=== PATIENT | female | born 1960 | race African-American/Black ===

== ENCOUNTER → 2020-07-25 09:26 | Outpatient (BNVA) | payer BC, SELFPAY | PROVIDERS: PCP Internal Medicine; Visit Provider Internal Medicine Gastroenterology | DX: Z76.89 Persons encountering health services in other specified circumstances (principal) ==

== ENCOUNTER 2020-09-03 08:41 | Outpatient (REF) | payer OTHER, SELFPAY ==
--- NOTE | ~2020-09-03 | MM_ITS ---
EXAMINATION: MM SCREENING DIGITAL BREAST TOMOSYNTHESIS, BILATERAL CLINICAL INFORMATION: Screening. Asymptomatic. The lifetime risk of breast cancer based on the Tyrer-Cuzick Model is 11%. COMPARISON: Mammography: 08/29/2019, 08/25/2018, 08/23/2017 TECHNIQUE: Digital breast tomosynthesis is performed in both the craniocaudal and mediolateral oblique views along with computer-aided detection (CAD). Synthesized 2D images are generated from the tomosynthesis. Additional views are provided: Right CC x2, right MLO, left CC, left MLO. FINDINGS: There are scattered areas of fibroglandular density (ACR BI-RADS breast composition Category b). There are no significant masses, abnormal calcifications, or other abnormalities. There are scattered shifting fibroglandular parenchymal densities overall similar to prior studies. No developing density. No significant changes. MM/MM tomosynthesis screening BI IMPRESSION: No significant changes from prior studies. ASSESSMENT: BI-RADS 1: Negative RECOMMENDATION: Routine annual mammography screening. This patient's information was entered into a reminder system with a target due date for their next mammogram.
== END 2020-09-03 08:42 | disposition home or self-care (01) ==
LOC: HO.MAMMO 08:41
PROVIDERS: PCP Internal Medicine; Visit Provider Internal Medicine
DX: Z12.31 Encounter for screening mammogram for malignant neoplasm of breast (principal)
CPT/HCPCS: 77063; 77067

== ENCOUNTER 2020-11-08 09:26 | Outpatient (REF) | payer OTHER, SELFPAY ==
--- NOTE | ~2020-11-08 | XR_ITS ---
EXAMINATION: XR CHEST CLINICAL INFORMATION: Morbid obesity COMPARISON: 08/24/2019 TECHNIQUE: 2 views of the chest were obtained. FINDINGS: Normal symmetric lung volumes. No parenchymal consolidation. No pleural effusion. No pneumothorax. Cardiomediastinal silhouette and pulmonary vascularity are within normal limits. No acute osseous abnormalities. XR/XR chest 2V IMPRESSION: Unremarkable examination.
--- NOTE | 2020-11-08 11:05 | ECG_ITS ---
Test Reason : E66.01 Blood Pressure : / mmHG Vent. Rate : 064 BPM Atrial Rate : 064 BPM P-R Int : 150 ms QRS Dur : 090 ms QT Int : 436 ms P-R-T Axes : 079 -17 034 degrees QTc Int : 449 ms Normal sinus rhythm Possible Left atrial enlargement Nonspecific ST abnormality Abnormal ECG When compared with ECG of 24-AUG-2019 11:26, No significant change was found Referred By: Deb Pantoja Electronically Signed By:Ishan Osullivan
[2020-11-08 11:36] LABS: MANUAL DIFF FLAG NO
[2020-11-08 11:47] LABS: Basophils Percent Auto 0.5 % (0-2); Eosinophils Absolute Auto 0.1 X10*3/uL (0.0-0.4); Eosinophils Percent Auto 1.8 % (0-4); Hematocrit 41.4 % (37-47); Hemoglobin 13.6 g/dl (12.0-16.0); Imm Gran Abs Auto 0.01 X10*3/uL (0.00-0.03); Imm Gran Pct Auto 0.3 % (0.0-0.4); Mean Corpuscular HGB Conc 32.9 g/dl (31.0-35.0); Mean Corpuscular Hemoglobin 28.8 pg (27.0-33.0); Mean Corpuscular Volume 87.7 fL (80-98); Mean Platelet Volume 10.7 fL (9.4-12.3); Monocytes Absolute Auto 0.3 X10*3/uL (0.1-1.2); Monocytes Percent Auto 8.1 % (2-11); Neutrophils Absolute Auto 1.5 X10*3/uL (2.0-8.3); Neutrophils Percent Auto 38.3 % (45-73); Platelet Count 190 X10*3/uL (160-400); Red Blood Count 4.72 X10*6/uL (4.20-5.50); Red Cell Distribution Width 13.9 % (11.0-16.0); White Blood Count 3.8 X10*3/uL (4.8-10.8)
[2020-11-08 12:09] LABS: Alanine Aminotransferase 24 U/L (0-31); Albumin Level 4.2 g/dL (3.5-5.0); Alkaline Phosphatase 104 U/L (39-117); Anion Gap 14 (12-20); Aspartate Amino Transferase 21 U/L (5-31); Bilirubin Total 0.5 mg/dL (0.0-1.0); Blood Urea Nitrogen 13 mg/dL (9-16); C Reactive Protein 0.31 mg/dL (< or = 0.50); Calcium 9.4 mg/dL (8.4-10.2); Carbon Dioxide 25 mmol/L (22-29); Chloride 104 mmol/L (96-108); Cholesterol 187 mg/dL; Estimated Glomerular Filt Rate > 60; Glucose Fasting 87 mg/dL (60-99); HDL Cholesterol 49 mg/dL; Iron 56 mcg/dL (30-160); LDL Cholesterol Calculated 122 mg/dl; Percent Iron Saturation 17 % (15-50); Potassium 4.3 mmol/L (3.3-5.1); Sodium 139 mmol/L (135-145); Total Iron Binding Capacity 323 mcg/dL (228-428); Total Protein 7.1 g/dL (6.5-8.0); Triglycerides 84 mg/dL; Unsaturated Iron Binding 267 ug/dL
[2020-11-08 12:12] LABS: Estimated Average Glucose 117 mg/dL; Hemoglobin A1c % 5.7 %
[2020-11-08 12:33] LABS: Ferritin 54 ng/mL (10-250); TSH reflex Free T4 2.01 uIU/mL (0.32-4.0); Vitamin D 25-OH Total 26.2 ng/mL (>30)
[2020-11-08 12:40] LABS: Folate 10.6 ng/mL (> or = 4.0); Vitamin B12 1028 pg/mL (200-900)
[2020-11-09 06:01] LABS: Insulin Level Total 7.6 uIU/mL
[2020-11-11 16:17] LABS: Calcium (PTHI) 9.5 mg/dL (8.6-10.4); PTHI 53 pg/mL (14-64)
[2020-11-13 09:41] LABS: Vitamin A 41 mcg/dL (38-98)
[2020-11-13 10:26] LABS: Vitamin B1 7 nmol/L (8-30)
[2020-11-15 16:12] LABS: Zinc 77 mcg/dL (60-130)
== END 2020-11-08 09:27 | disposition home or self-care (01) ==
LOC: HO.LAB 09:26
PROVIDERS: PCP Internal Medicine; Visit Provider Physician Assistant
DX: E66.01 Morbid (severe) obesity due to excess calories (principal); R06.02 Shortness of breath; R94.31 Abnormal electrocardiogram [ECG] [EKG]; F17.210 Nicotine dependence, cigarettes, uncomplicated; Z68.41 Body mass index [BMI] 40.0-44.9, adult; Z91.030 Bee allergy status; Z79.899 Other long term (current) drug therapy
CPT/HCPCS: 36415; 71046; 80053; 80061; 82306; 82607; 82728; 82746; 83036; 83525; 83540; 83970; 84425; 84443; 84590; 84630; 85025; 86140; 93005

== ENCOUNTER → 2020-11-19 08:06 | Outpatient (BNVA) | payer OTHER, SELFPAY | PROVIDERS: PCP Internal Medicine; Visit Provider Dietitian, Registered | DX: E66.01 Morbid (severe) obesity due to excess calories (principal); Z68.42 Body mass index [BMI] 45.0-49.9, adult | CPT/HCPCS: 97802 ==

== ENCOUNTER → 2020-12-05 08:23 | Outpatient (BNVA) | payer OTHER, SELFPAY | PROVIDERS: PCP Internal Medicine; Referring Provider Internal Medicine; Visit Provider Internal Medicine | DX: Z01.810 Encounter for preprocedural cardiovascular examination (principal); R94.31 Abnormal electrocardiogram [ECG] [EKG]; E66.01 Morbid (severe) obesity due to excess calories; I10 Essential (primary) hypertension | CPT/HCPCS: 99202 ==

== ENCOUNTER 2020-12-09 08:07 | Outpatient (REF) | payer OTHER, SELFPAY ==
[2020-12-10 13:38] LABS: H Pylori Breath Test NOT DETECTED (NOT DETECTED)
== END 2020-12-09 08:08 | disposition home or self-care (01) ==
LOC: HO.LNP 08:07
PROVIDERS: PCP Internal Medicine; Visit Provider Physician Assistant
DX: E66.01 Morbid (severe) obesity due to excess calories (principal); Z68.42 Body mass index [BMI] 45.0-49.9, adult; Z71.3 Dietary counseling and surveillance; Z11.0 Encounter for screening for intestinal infectious diseases
CPT/HCPCS: 83013; 97803; 99211

== ENCOUNTER → 2020-12-10 14:12 | Outpatient (BNVA) | payer OTHER, SELFPAY | PROVIDERS: PCP Internal Medicine; Visit Provider Surgery | DX: E66.01 Morbid (severe) obesity due to excess calories (principal); Z68.42 Body mass index [BMI] 45.0-49.9, adult; Z98.84 Bariatric surgery status | CPT/HCPCS: 99212 ==

== ENCOUNTER 2020-12-18 07:32 | Day surgery (SDC) | payer OTHER, SELFPAY ==
--- NOTE | 2020-12-17 09:12 | HO.ANESPROP2 ---
Documented by User: Lanette Rosy 12/17/20 09:15 HPI - Anesthesia Eval Consult details Narrative: 60yo F for Upper Endoscopy Cardiac cleared at low risk without further testing (reviewed abnormal EKG) [facility] Active Problems Active Problems: All Active Problems (Updated 12/05/20 @ 08:58 by Francisco Javier Barkley MD) Morbid obesity (Acute) BMI 45.0-49.9, adult (Acute) History of adjustable gastric banding (Acute) Essential hypertension (Acute) Preoperative cardiovascular examination (Acute) Adjustment disorder, unspecified (Acute) Vitamin B1 deficiency (Acute) Abnormal EKG (Acute) Vitamin D deficiency (Acute) Morbid obesity with BMI of 40.0-44.9, adult (Acute) PPD positive (Acute) Insomnia (Acute) GERD with esophagitis (Acute) Rheumatoid arthritis (Acute) Hypertension (Acute) Past Medical History Medical History Abnormal EKG BMI 45.0-49.9, adult Essential hypertension GERD with esophagitis Helicobacter pylori gastritis Insomnia Morbid obesity with BMI of 40.0-44.9, adult PPD positive Rheumatoid arthritis Vitamin B1 deficiency Vitamin D deficiency Family History Family History Father Family history of high blood pressure Mother No problems noted. Brother No problems noted. Sister No problems noted. Sister No problems noted. Sister No problems noted. Sister No problems noted. Son No problems noted. Surgical History Surgical History History of adjustable gastric banding History of (~1996) History of colonoscopy (~05/2019) Hx of endoscopy (~07/2019) Social History Social History (Updated 12/05/20 @ 08:31 by LOGAN Anne) Alcohol intake: current Alcohol intake frequency: a few times a month Cigarettes Per Day: 4 Use of substances other than those prescribed or required for medical reasons: No Are you DNR?: No Advance Directives: No Advance Directives Information Provided: No Meds Allergies Allergy/AdvReac Type Severity Reaction Status Date / Time Bee Allergy Severe Abdominal Uncoded 12/18/20 08:40 Pain Home Medications Medication Instructions Recorded Confirmed Last Taken Type epinephrine 0.3 mg/0.3 mL 0.3 mg IM Q15M PRN 07/25/20 12/10/20 Unknown History injection, auto-injector lisinopril 10 mg tablet 10 mg PO DAILY 07/25/20 12/10/20 Unknown History acetaminophen 650 mg 650 mg PO Q8H PRN 11/08/20 12/10/20 Unknown History tablet,extended release zinc sulfate 50 mg zinc (220 mg) 50 mg PO DAILY 11/08/20 12/10/20 Unknown History capsule biotin 10,000 mcg capsule mcg PO 12/10/20 12/10/20 Unknown History omeprazole 20 mg capsule,delayed 20 mg PO DAILY cap 12/10/20 12/10/20 Unknown History release turmeric 400 mg capsule mg PO .qod cap 12/10/20 12/10/20 Unknown History Exam Exam Date and Time: December 17, 202012 Narrative Narrative: XR chest 2V 10/2020 IMPRESSION: Unremarkable examination. EKG 10/2020 Vent. Rate : 064 BPM Atrial Rate : 064 BPM P-R Int : 150 ms QRS Dur : 090 ms QT Int : 436 ms P-R-T Axes : 079 -17 034 degrees QTc Int : 449 ms Normal sinus rhythm Possible Left atrial enlargement Nonspecific ST abnormality Abnormal ECG When compared with ECG of 24-AUG-2019 11:26, No significant change was found Assessment and Plan Assessment Anesthesia Assessment: Chart Reviewed Documented by User: Ryan Brown 12/18/20 08:44 [facility] Past Medical History Medical History Abnormal EKG BMI 45.0-49.9, adult Essential hypertension GERD with esophagitis Helicobacter pylori gastritis Insomnia Morbid obesity with BMI of 40.0-44.9, adult PPD positive Rheumatoid arthritis Vitamin B1 deficiency Vitamin D deficiency Family History Family History Father Family history of high blood pressure Mother No problems noted. Brother No problems noted. Sister No problems noted. Sister No problems noted. Sister No problems noted. Sister No problems noted. Son No problems noted. Surgical History Surgical History History of adjustable gastric banding History of (~1996) History of colonoscopy (~05/2019) Hx of endoscopy (~07/2019) Social History Social History (Updated 12/05/20 @ 08:31 by LOGAN Anne) Alcohol intake: current Alcohol intake frequency: a few times a month Cigarettes Per Day: 4 Use of substances other than those prescribed or required for medical reasons: No Are you DNR?: No Advance Directives: No Advance Directives Information Provided: No Meds Allergies Allergy/AdvReac Type Severity Reaction Status Date / Time Bee Allergy Severe Abdominal Uncoded 12/18/20 08:40 Pain Home Medications Medication Instructions Recorded Confirmed Last Taken Type epinephrine 0.3 mg/0.3 mL 0.3 mg IM Q15M PRN 07/25/20 12/10/20 Unknown History injection, auto-injector lisinopril 10 mg tablet 10 mg PO DAILY 07/25/20 12/10/20 Unknown History acetaminophen 650 mg 650 mg PO Q8H PRN 11/08/20 12/10/20 Unknown History tablet,extended release zinc sulfate 50 mg zinc (220 mg) 50 mg PO DAILY 11/08/20 12/10/20 Unknown History capsule biotin 10,000 mcg capsule mcg PO 12/10/20 12/10/20 Unknown History omeprazole 20 mg capsule,delayed 20 mg PO DAILY cap 12/10/20 12/10/20 Unknown History release turmeric 400 mg capsule mg PO .qod cap 12/10/20 12/10/20 Unknown History Exam Airway Mallampati Class: II TM Dist: >3cm Neck ROM: Full
--- NOTE | 2020-12-17 11:13 | MHC.SHP ---
Pre-Procedural Eval Section B Chief Complaint: bariatric surgery status Allergies: Allergies Allergy/AdvReac Type Severity Reaction Status Date / Time Bee Allergy Severe Abdominal Uncoded 12/10/20 14:50 Pain Plan I have reviewed the history and physical and performed a pertinent physical examination on my patient. No changes have occurred unless specified.
[2020-12-18 07:55] VITALS: BP 138/56; PULSE 55; RESP 16; TEMP 36.5; O2SAT 99; BMI 45.9
[2020-12-18] MEDS: Lactated Ringers 1,000 ML 100 ML IVCONT (08:21)
[2020-12-18 08:35] LABS: COVID-19 Test Negative (Negative)
[2020-12-18 09:25] VITALS: BP 94/41; PULSE 61; RESP 16; TEMP 36.1; O2SAT 96
--- NOTE | 2020-12-18 09:32 | P.BOP_ITS ---
Brief Operative Note Date of Service: 12/18/20 Pre-op diagnosis: Vomiting and severe GERD with a history of gastric banding Post-op diagnosis: other (Large slip of the gastric band and antral gastritis) Procedure: Esophagogastroduodenoscopy, biopsy of antrum x2 Implants: None Surgeon: Clare Mehta MD Anesthesia: MAC Was an Digital Research Analyst used for this Procedure?: No Estimated blood loss (mL): 0 Pathology: other (Antrum x2) Condition: stable Disposition: PACU
[2020-12-18 09:40] VITALS: BP 106/58; PULSE 62; RESP 61; TEMP 36.1; O2SAT 100
--- NOTE | 2020-12-18 13:30 | OP_ITS ---
SURGEON: Clare Mehta MD PREOPERATIVE DIAGNOSIS: POSTOPERATIVE DIAGNOSIS: PROCEDURE PERFORMED: Esophagogastroduodenoscopy with antral biopsy x2. ESTIMATED BLOOD LOSS: COMPLICATIONS: None. ANESTHESIA: ASSISTANTS: SPECIMENS: PRE-PROCEDURE DIAGNOSES: Vomiting, severe gastroesophageal reflux disease, status post gastric banding. POSTPROCEDURE DIAGNOSES: Large gastric band slip and antral gastritis. FINDINGS: A large gastric band slip with some undigested food within the gastric pouch and a significant amount of stomach above the gastric band. DESCRIPTION OF PROCEDURE: The patient was brought to the operating room on the stretcher and placed in the left lateral decubitus position. A safety time-out was performed. A bite block was placed between the teeth. Total intravenous anesthesia was administered using propofol by the nurse jalousie installer. Once the patient was adequately sedated, the gastroscope was placed into the posterior oropharynx, passed down the esophagus, evaluating the esophageal mucosa. The GE junction was located at 43 cm from the incisors. The gastric band was located at 49 cm from the incisors. There was significant amount of stomach above the gastric band and some undigested food within the stomach. The gastroscope was passed through the gastric band into the lower stomach, and there was some erythema and granularity of the antrum, which was biopsied x2. The gastroscope was passed to the pre-pyloric region through the pylorus, down to the third portion of duodenum, all which was normal. All of these portions of the upper endoscopy were documented using photo documentation. The gastroscope was retracted back into the stomach, the stomach was desufflated, and the gastroscope was removed without difficulty. The patient tolerated the procedure well and was sent to the recovery room in stable condition. Clare Mehta MD UM/MODL / [id number]
== END 2020-12-18 10:52 | disposition home or self-care (01) ==
PROVIDERS: PCP Internal Medicine; Visit Provider Surgery
PROC: 0DJ08ZZ Inspection of Upper Intestinal Tract, Via Natural or Artificial Opening Endoscopic (ICD-10-PCS; CPT 43235; principal; 2020-12-18 08:50)
DX: K91.0 Vomiting following gastrointestinal surgery (principal); K95.09 Other complications of gastric band procedure; K21.00 Gastro-esophageal reflux disease with esophagitis, without bleeding; K29.50 Unspecified chronic gastritis without bleeding; Z98.84 Bariatric surgery status; E66.01 Morbid (severe) obesity due to excess calories; Z68.42 Body mass index [BMI] 45.0-49.9, adult; I10 Essential (primary) hypertension; M06.9 Rheumatoid arthritis, unspecified; R76.11 Nonspecific reaction to tuberculin skin test without active tuberculosis; Z20.822 Contact with and (suspected) exposure to COVID-19; Z79.899 Other long term (current) drug therapy; Z87.891 Personal history of nicotine dependence
CPT/HCPCS: 43239; 36415; 87635; 88305; 88342; J2250

== ENCOUNTER → 2020-12-24 08:08 | Outpatient (BNVA) | payer OTHER, SELFPAY | PROVIDERS: PCP Internal Medicine; Visit Provider Dietitian, Registered | DX: E66.01 Morbid (severe) obesity due to excess calories (principal) | CPT/HCPCS: 97803 ==

== ENCOUNTER → 2020-12-30 11:25 | Outpatient (BNVA) | payer OTHER, SELFPAY | PROVIDERS: PCP Internal Medicine; Referring Provider Internal Medicine; Visit Provider Surgery | DX: Z01.818 Encounter for other preprocedural examination (principal); E66.01 Morbid (severe) obesity due to excess calories; Z68.42 Body mass index [BMI] 45.0-49.9, adult | CPT/HCPCS: 99212 ==

== ENCOUNTER → 2021-01-06 08:07 | Outpatient (BNVA) | payer OTHER, SELFPAY | PROVIDERS: PCP Internal Medicine; Visit Provider Dietitian, Registered ==

== ENCOUNTER 2021-01-14 13:20 | Outpatient (REF) | payer OTHER, SELFPAY ==
--- NOTE | ~2021-01-14 | US_ITS ---
EXAMINATION: PELVIC ULTRASOUND CLINICAL INFORMATION: Uterine fibroids COMPARISON: 02/17/2017 TECHNIQUE: Both transabdominal and endovaginal scanning was performed. FINDINGS: An anteverted uterus is present measuring 7.8 x 5.3 x 5.3 cm for a volume of 114 mL. Multiple uterine fibroids are seen with 6 measured the largest 3 are near the fundus measuring 2.4 x 1.9 x 2.9 cm, 2.4 x 2.1 x 2.3 cm and 1.9 x 1.9 x 1.9 cm. The largest fibroid previously measured 3.4 x 2.7 x 3.2 cm. Exact comparisons between the current study and the prior study were difficult because of the sonographers inability to accurately match up the fibroids with the prior study. The right ovary measures 1.9 x 1.4 x 1.5 cm for a volume of 2.1 mL and appears unremarkable. Left ovary measures 2.0 x 1.3 x 1.3 cm for a volume of 1.8 mL and appears unremarkable. US/US pelvic and transvaginal IMPRESSION: At least 6 uterine fibroids seen. They appear to be smaller as the largest fibroid today measures 2.9 cm where as the time of the prior study the largest was 3.4 cm in greatest dimension. However, inability to match the fibroids directly limits evaluation. Examination such as a pelvic MRI would be best to more accurately follow these if necessary.
--- NOTE | ~2021-01-14 | MM_ITS ---
EXAMINATION: BONE DENSITOMETRY CLINICAL INDICATION: Encounter for screening for osteoporosis. COMPARISON: None (current study represents initial baseline exam). TECHNIQUE: Using a Captimo DXA System (software version: 13.1) manufactured by [employer], dual-energy x-ray absorptiometry was performed of the lumbar spine and left hip. The images are of good technical quality. Summary results are attached. FINDINGS: AP SPINE L1-L4: There are multilevel degenerative changes lumbar spine which may cause overestimation of the lumbar bone mineral density. BMD 1.728 g/cm2, Z-score 3.8, T-score 4.6, normal. LEFT FEMUR, NECK: BMD 1.132 g/cm2, Z-score 0.2, T-score 0.7, normal. LEFT FEMUR, TOTAL: BMD 1.181 g/cm2, Z-score 0.4, T-score 1.4, normal. IDENTIFIED RISK FACTORS: History of adult fracture. Height loss. Menopause. Rheumatoid arthritis. HISTORY OF FRACTURE: Other. MEDICATIONS: Calcium or multivitamin. Vitamin D. MM/XR DEXA axial skeleton IMPRESSION: 1. DIAGNOSIS: Normal bone density based on the lowest T-score value of 0.7 in the femoral neck applying World Health Organization criteria. 2. 10-YEAR FRACTURE RISK PREDICTION, FRAX: Major osteoporotic fracture (clinical spine, forearm, hip or shoulder) 4.5%. Hip fracture 0.1%. 3. Treatment Recommendations: NOF guidelines recommend consideration for treatment in postmenopausal women and men age 50 and older presenting with the following: -A hip or vertebral (clinical or morphometric) fracture. -T-score less than or equal to -2.5 at the femoral neck or spine after appropriate evaluation to exclude secondary causes. -Low bone mass at the hip or spine and a 10-year fracture probability by FRAX of greater than or equal to 3% for hip fracture or greater than or equal to 20% for major osteoporotic fracture based on the [place] adapted WHO algorithm. 4. Other Recommendations: All treatment decisions require clinical judgment and consideration of individual patient factors, including patient preferences, comorbidities, previous drug use, risk factors not captured in the FRAX model (e.g. frailty, falls, vitamin D deficiency, increased bone turnover, interval significant decline in bone density) and possible under or overestimation of fracture risk by FRAX. FUTURE SCAN RECOMMENDATION: People with diagnosed cases of osteoporosis or at high risk for fracture should have regular bone mineral density tests. For patients eligible for Medicare, routine testing is allowed once every 2 years. The testing frequency can be increased to one year for patients who have rapidly progressing disease, those who are receiving or discontinuing medical therapy to restore bone mass, or have additional risk factors.
== END 2021-01-14 13:21 | disposition home or self-care (01) ==
LOC: HO.MAMMO 13:20
PROVIDERS: Visit Provider Advanced Practice Midwife
DX: Z13.820 Encounter for screening for osteoporosis (principal); M06.9 Rheumatoid arthritis, unspecified; N95.1 Menopausal and female climacteric states; D25.9 Leiomyoma of uterus, unspecified; Z79.899 Other long term (current) drug therapy; Z87.311 Personal history of (healed) other pathological fracture
CPT/HCPCS: 76830; 76856; 77080

== ENCOUNTER → 2021-01-16 09:51 | Outpatient (BNVA) | payer OTHER, SELFPAY | PROVIDERS: PCP Internal Medicine; Referring Provider Internal Medicine; Visit Provider Internal Medicine Gastroenterology | DX: K21.00 Gastro-esophageal reflux disease with esophagitis, without bleeding (principal); E66.01 Morbid (severe) obesity due to excess calories | CPT/HCPCS: 99212 ==

== ENCOUNTER 2021-01-22 10:34 | Inpatient (IN) | payer OTHER, SELFPAY ==
[2021-01-10 14:54] VITALS: BMI 47.6
[2021-01-21 09:17] LABS: MANUAL DIFF FLAG NO
--- NOTE | 2021-01-21 09:22 | P.CONAN_ITS ---
Documented by User: Lanette Rosy 01/21/21 09:26 HPI - Anesthesia Eval Consult details Narrative: 60yo F for Laparosopic Lap Band Removal with Conversion to Gastric Sleeve Cardiac cleared at low risk PMFSH Active Problems Active Problems: All Active Problems (Updated 01/10/21 @ 14:58 by Leslie Denney) Hypertension (Acute) Morbid obesity (Acute) Adjustment disorder, unspecified (Acute) Preoperative cardiovascular examination (Acute) Preoperative examination (Acute) Shortness of breath (Acute) Smoker (Acute) BMI 45.0-49.9, adult (Acute) History of adjustable gastric banding (Acute) Essential hypertension (Acute) Vitamin B1 deficiency (Acute) Abnormal EKG (Acute) Vitamin D deficiency (Acute) Morbid obesity with BMI of 40.0-44.9, adult (Acute) PPD positive (Acute) Insomnia (Acute) GERD with esophagitis (Acute) Rheumatoid arthritis (Acute) Past Medical History Medical History Abnormal EKG BMI 45.0-49.9, adult COVID-19 vaccine series completed Essential hypertension GERD with esophagitis Helicobacter pylori gastritis Insomnia Morbid obesity with BMI of 40.0-44.9, adult PPD positive Rheumatoid arthritis Vitamin B1 deficiency Vitamin D deficiency Family History Family History Father Family history of high blood pressure Mother No problems noted. Brother No problems noted. Sister No problems noted. Sister No problems noted. Sister No problems noted. Sister No problems noted. Son No problems noted. Surgical History Surgical History History of adjustable gastric banding History of (~1996) History of colonoscopy (~05/2019) History of esophagogastroduodenoscopy (EGD) Hx of endoscopy (~07/2019) Social History Social History (Updated 01/22/21 @ 07:59 by Cielo Quintero) Are you a primary direct support professional caregiver to a significant other at home: No Do you presently have visiting nurse or other home services: No Alcohol intake: current Alcohol intake frequency: a few times a month Patient Tobacco Use Status: Former Tobacco user Quit Date: About 1 week ago Tobacco use type: Cigarette Cigarette Packs Per Day: 0 Cigarettes Per Day: 2 Smoked in Last 30 Days: Yes Meds Allergies Allergy/AdvReac Type Severity Reaction Status Date / Time Bee Allergy Severe Abdominal Uncoded 01/10/21 14:59 Pain Home Medications Medication Instructions Recorded Confirmed Last Taken Type epinephrine 0.3 mg/0.3 mL 0.3 mg IM Q15M PRN 07/25/20 01/16/21 Unknown History injection, auto-injector lisinopril 10 mg tablet 10 mg PO DAILY 07/25/20 01/16/21 Unknown History acetaminophen 650 mg 650 mg PO Q8H PRN 11/08/20 01/16/21 Unknown History tablet,extended release zinc sulfate 50 mg zinc (220 mg) 50 mg PO DAILY 11/08/20 01/16/21 Unknown History capsule biotin 10,000 mcg capsule 10,000 mcg PO DAILY 12/10/20 01/16/21 Unknown History omeprazole 20 mg capsule,delayed 20 mg PO DAILY cap 12/10/20 01/16/21 01/22/21 05:30 History release turmeric 400 mg capsule 400 mg PO .qod cap 12/10/20 01/16/21 Unknown History Exam Exam Date and Time: January 21, 2021 0922 Height,Weight and Vital Signs: Height 5 ft 6 in Weight 133.81 kg Pertinent Lab Results Pertinent Lab Results: Laboratory Tests 11/08/20 01/21/21 10:42 08:35 WBC 3.4 L Hgb 13.2 Hct 41.1 Plt Count 166 Sodium 139 Potassium 4.3 Chloride 104 Carbon Dioxide 25 BUN 13 Creatinine 0.73 Narrative Narrative: EKG 11/2020 per cardiac note: Underlying rhythm is sinus at a rate of 64/Min. There is leftward axis. Possible left atrial enlargement. This is similar to a prior EKG from July of 2019. The left axis deviation could be from her body habitus. Left atrial enlargement could be related to hypertension. Overall, in the absence of symptoms, no specific workup required. Assessment and Plan Assessment Anesthesia Assessment: Chart Reviewed Documented by User: Cielo Quintero 01/22/21 08:05 [facility] Past Medical History Medical History Abnormal EKG BMI 45.0-49.9, adult COVID-19 vaccine series completed Essential hypertension GERD with esophagitis Helicobacter pylori gastritis Insomnia Morbid obesity with BMI of 40.0-44.9, adult PPD positive Rheumatoid arthritis Vitamin B1 deficiency Vitamin D deficiency Family History Family History Father Family history of high blood pressure Mother No problems noted. Brother No problems noted. Sister No problems noted. Sister No problems noted. Sister No problems noted. Sister No problems noted. Son No problems noted. Family history of problems with anesthesia: No Surgical History Surgical History History of adjustable gastric banding History of (~1996) History of colonoscopy (~05/2019) History of esophagogastroduodenoscopy (EGD) Hx of endoscopy (~07/2019) History of Problems with Anesthesia: No Social History Social History (Updated 01/22/21 @ 07:59 by Cielo Quintero) Are you a primary direct support professional caregiver to a significant other at home: No Do you presently have visiting nurse or other home services: No Alcohol intake: current Alcohol intake frequency: a few times a month Patient Tobacco Use Status: Former Tobacco user Quit Date: About 1 week ago Tobacco use type: Cigarette Cigarette Packs Per Day: 0 Cigarettes Per Day: 2 Smoked in Last 30 Days: Yes Meds Allergies Allergy/AdvReac Type Severity Reaction Status Date / Time Bee Allergy Severe Abdominal Uncoded 01/10/21 14:59 Pain Home Medications Medication Instructions Recorded Confirmed Last Taken Type epinephrine 0.3 mg/0.3 mL 0.3 mg IM Q15M PRN 07/25/20 01/16/21 Unknown History injection, auto-injector lisinopril 10 mg tablet 10 mg PO DAILY 07/25/20 01/16/21 Unknown History acetaminophen 650 mg 650 mg PO Q8H PRN 11/08/20 01/16/21 Unknown History tablet,extended release zinc sulfate 50 mg zinc (220 mg) 50 mg PO DAILY 11/08/20 01/16/21 Unknown History capsule biotin 10,000 mcg capsule 10,000 mcg PO DAILY 12/10/20 01/16/21 Unknown History omeprazole 20 mg capsule,delayed 20 mg PO DAILY cap 12/10/20 01/16/21 01/22/21 05:30 History release turmeric 400 mg capsule 400 mg PO .qod cap 12/10/20 01/16/21 Unknown History Exam Height,Weight and Vital Signs: Vital Signs Temp Pulse Resp BP Pulse Ox 01/22/21 06:50 97.4 F 60 16 121/61 97 Pertinent Lab Results Pertinent Lab Results: Lab Results 01/21/21 01/21/21 01/21/21 Range/Units 08:35 08:35 08:35 WBC 3.4 L (4.8-10.8) X10*3/uL RBC 4.62 (4.20-5.50) X10*6/uL Hgb 13.2 (12.0-16.0) g/dl Hct 41.1 (37-47) % MCV 89.0 (80-98) fL MCH 28.6 (27.0-33.0) pg MCHC 32.1 (31.0-35.0) g/dl RDW 14.0 (11.0-16.0) % Plt Count 166 (160-400) X10*3/uL MPV 10.8 (9.4-12.3) fL Immature Gran % (Auto) 0.3 (0.0-0.4) % Neut % (Auto) 39.1 L (45-73) % Lymph % (Auto) 49.3 H (20-40) % [place] % (Auto) 8.9 (2-11) % Eos % (Auto) 1.8 (0-4) % Baso % (Auto) 0.6 (0-2) % Lymph # (Auto) 1.7 (1.2-4.9) X10*3/uL [place] # (Auto) 0.3 (0.1-1.2) X10*3/uL Eos # (Auto) 0.1 (0.0-0.4) X10*3/uL Baso # (Auto) 0.0 (0.0-0.2) X10*3/uL Abs Immat Gran (auto) 0.01 (0.00-0.03) X10*3/uL Absolute Neuts (auto) 1.3 L (2.0-8.3) X10*3/uL Absolute Nucleated RBC 0.000 (0.0-0.012) X10*3/uL Nucleated RBC % (auto) 0.0 (0.0-0.2) /100WBC PT 11.7 (10.8-13.0) SEC INR 1.0 (0.9-1.1) APTT 37.9 (24.1-38.0) SEC Sodium 142 (135-145) mmol/L Potassium 4.6 (3.3-5.1) mmol/L Chloride 108 (96-108) mmol/L Carbon Dioxide 28 (22-29) mmol/L Anion Gap 11 L (12-20) BUN 13 (9-16) mg/dL Creatinine 0.78 (0.5-1.4) mg/dL Estim Creat Clear Calc 110.6 Estimated GFR > 60 Random Glucose 100 (60-115) mg/dL Calcium 9.3 (8.4-10.2) mg/dL Albumin (3.5-5.0) g/dL 25-OH Vitamin D Total 23.0 (>30) ng/mL Urine Color Urine Appearance Urine pH (5.0-8.0) Ur Specific [place] (1.005-1.025) Urine Protein (NEG-TRACE) MG/DL Urine Glucose (UA) (NEG) MG/DL Urine Ketones (NEG) MG/DL Urine Blood (NEG) Urine Nitrite (NEG) Ur Leukocyte Esterase (NEG) Urine RBC (0) /HPF Urine WBC (0-4) /HPF Ur Squamous Epith Cells /LPF Urine Bacteria /LPF Urine Mucus /LPF COVID-19 ([facility]) (Negative) COVID-19 Clin Com Blood Type Antibody Screen 01/21/21 01/21/21 01/21/21 Range/Units 08:35 08:35 08:40 WBC (4.8-10.8) X10*3/uL RBC (4.20-5.50) X10*6/uL Hgb (12.0-16.0) g/dl Hct (37-47) % MCV (80-98) fL MCH (27.0-33.0) pg MCHC (31.0-35.0) g/dl RDW (11.0-16.0) % Plt Count (160-400) X10*3/uL MPV (9.4-12.3) fL Immature Gran % (Auto) (0.0-0.4) % Neut % (Auto) (45-73) % Lymph % (Auto) (20-40) % [place] % (Auto) (2-11) % Eos % (Auto) (0-4) % Baso % (Auto) (0-2) % Lymph # (Auto) (1.2-4.9) X10*3/uL [place] # (Auto) (0.1-1.2) X10*3/uL Eos # (Auto) (0.0-0.4) X10*3/uL Baso # (Auto) (0.0-0.2) X10*3/uL Abs Immat Gran (auto) (0.00-0.03) X10*3/uL Absolute Neuts (auto) (2.0-8.3) X10*3/uL Absolute Nucleated RBC (0.0-0.012) X10*3/uL Nucleated RBC % (auto) (0.0-0.2) /100WBC PT (10.8-13.0) SEC INR (0.9-1.1) APTT (24.1-38.0) SEC Sodium (135-145) mmol/L Potassium (3.3-5.1) mmol/L Chloride (96-108) mmol/L Carbon Dioxide (22-29) mmol/L Anion Gap (12-20) BUN (9-16) mg/dL Creatinine (0.5-1.4) mg/dL Estim Creat Clear Calc Estimated GFR Random Glucose (60-115) mg/dL Calcium (8.4-10.2) mg/dL Albumin 4.0 (3.5-5.0) g/dL 25-OH Vitamin D Total (>30) ng/mL Urine Color YELLOW Urine Appearance CLEAR Urine pH 6.0 (5.0-8.0) Ur Specific [place] 1.020 (1.005-1.025) Urine Protein NEG (NEG-TRACE) MG/DL Urine Glucose (UA) NEG (NEG) MG/DL Urine Ketones NEG (NEG) MG/DL Urine Blood 1+ H (NEG) Urine Nitrite POS H (NEG) Ur Leukocyte Esterase TRACE H (NEG) Urine RBC 0-2 (0) /HPF Urine WBC 10-14 H (0-4) /HPF Ur Squamous Epith Cells 2+ /LPF Urine Bacteria 1+ /LPF Urine Mucus 1+ /LPF COVID-19 ([facility]) (Negative) COVID-19 Clin Com Blood Type O Positive Antibody Screen NEGATIVE 01/22/21 Range/Units 06:45 WBC (4.8-10.8) X10*3/uL RBC (4.20-5.50) X10*6/uL Hgb (12.0-16.0) g/dl Hct (37-47) % MCV (80-98) fL MCH (27.0-33.0) pg MCHC (31.0-35.0) g/dl RDW (11.0-16.0) % Plt Count (160-400) X10*3/uL MPV (9.4-12.3) fL Immature Gran % (Auto) (0.0-0.4) % Neut % (Auto) (45-73) % Lymph % (Auto) (20-40) % [place] % (Auto) (2-11) % Eos % (Auto) (0-4) % Baso % (Auto) (0-2) % Lymph # (Auto) (1.2-4.9) X10*3/uL [place] # (Auto) (0.1-1.2) X10*3/uL Eos # (Auto) (0.0-0.4) X10*3/uL Baso # (Auto) (0.0-0.2) X10*3/uL Abs Immat Gran (auto) (0.00-0.03) X10*3/uL Absolute Neuts (auto) (2.0-8.3) X10*3/uL Absolute Nucleated RBC (0.0-0.012) X10*3/uL Nucleated RBC % (auto) (0.0-0.2) /100WBC PT (10.8-13.0) SEC INR (0.9-1.1) APTT (24.1-38.0) SEC Sodium (135-145) mmol/L Potassium (3.3-5.1) mmol/L Chloride (96-108) mmol/L Carbon Dioxide (22-29) mmol/L Anion Gap (12-20) BUN (9-16) mg/dL Creatinine (0.5-1.4) mg/dL Estim Creat Clear Calc Estimated GFR Random Glucose (60-115) mg/dL Calcium (8.4-10.2) mg/dL Albumin (3.5-5.0) g/dL 25-OH Vitamin D Total (>30) ng/mL Urine Color Urine Appearance Urine pH (5.0-8.0) Ur Specific [place] (1.005-1.025) Urine Protein (NEG-TRACE) MG/DL Urine Glucose (UA) (NEG) MG/DL Urine Ketones (NEG) MG/DL Urine Blood (NEG) Urine Nitrite (NEG) Ur Leukocyte Esterase (NEG) Urine RBC (0) /HPF Urine WBC (0-4) /HPF Ur Squamous Epith Cells /LPF Urine Bacteria /LPF Urine Mucus /LPF COVID-19 ([facility]) Negative (Negative) COVID-19 Clin Com See Note Blood Type Antibody Screen Airway Mallampati Class: II TM Dist: >3cm Neck ROM: Full Heart: RRR Lungs: CTAB Assessment and Plan Assessment Anesthesia Assessment: Anesthesia Plan Discussed and Chart Reviewed Final Anesthetic Review NPO: Yes ASA Class: III Final Preanesthetic Review: No Changes in Pt Med Stat, Meds/Allgs Chart Reviewed, Consent Obtained/Reviewed and Anes Risks/Benef Reviewed Patient Risk: Intermediate Procedure Risk: Intermediate Assessment/Block/Sedation in SS: Assess/Block/Sedation-SS Anesthetic Plan Anesthetic Plan: GA Disposition: Inp. Admit - Standard Bed
[2021-01-21 09:24] LABS: Basophils Percent Auto 0.6 % (0-2); Eosinophils Absolute Auto 0.1 X10*3/uL (0.0-0.4); Eosinophils Percent Auto 1.8 % (0-4); Hematocrit 41.1 % (37-47); Hemoglobin 13.2 g/dl (12.0-16.0); Imm Gran Abs Auto 0.01 X10*3/uL (0.00-0.03); Imm Gran Pct Auto 0.3 % (0.0-0.4); Lymphocytes Absolute Auto 1.7 X10*3/uL (1.2-4.9); Lymphocytes Percent Auto 49.3 % (20-40); Mean Corpuscular HGB Conc 32.1 g/dl (31.0-35.0); Mean Corpuscular Hemoglobin 28.6 pg (27.0-33.0); Mean Platelet Volume 10.8 fL (9.4-12.3); Monocytes Absolute Auto 0.3 X10*3/uL (0.1-1.2); Monocytes Percent Auto 8.9 % (2-11); Neutrophils Absolute Auto 1.3 X10*3/uL (2.0-8.3); Neutrophils Percent Auto 39.1 % (45-73); Platelet Count 166 X10*3/uL (160-400); Red Blood Count 4.62 X10*6/uL (4.20-5.50); White Blood Count 3.4 X10*3/uL (4.8-10.8)
[2021-01-21 09:26] LABS: Prothrombin Time 11.7 SEC (10.8-13.0)
[2021-01-21 09:29] LABS: Partial Thromboplastin Time 37.9 SEC (24.1-38.0)
[2021-01-21 09:43] LABS: Anion Gap 11 (12-20); Blood Urea Nitrogen 13 mg/dL (9-16); Calcium 9.3 mg/dL (8.4-10.2); Carbon Dioxide 28 mmol/L (22-29); Chloride 108 mmol/L (96-108); Creatinine Clr Calc Pharmacy 110.6; Estimated Glomerular Filt Rate > 60; Glucose Random 100 mg/dL (60-115); Potassium 4.6 mmol/L (3.3-5.1); Sodium 142 mmol/L (135-145)
[2021-01-21 10:16] LABS: Glucose Urine UA NEG (NEG); Leukocyte Esterase Urine TRACE (NEG); Nitrite Urine POS (NEG); UACC Culture Trigger YES; Urine Blood 1+ (NEG); Urine Ketones NEG (NEG); Urine Protein NEG (NEG-TRACE)
[2021-01-21 10:21] LABS: Appearance Urine CLEAR; Color Urine YELLOW
[2021-01-21 10:33] LABS: Bacteria Urine 1+ /LPF; RBC Urine 0-2 /HPF (0); Squamous Epithelial Cell Urine 2+ /LPF
[2021-01-21 10:34] LABS: Mucus Urine 1+ /LPF
--- NOTE | 2021-01-21 16:42 | MHC.SHP ---
Pre-Procedural Eval Section A Date of Service: 01/21/21 Section B Chief Complaint: Morbid Severe Obesity Allergies: Allergies Allergy/AdvReac Type Severity Reaction Status Date / Time Bee Allergy Severe Abdominal Uncoded 01/10/21 14:59 Pain Plan I have reviewed the history and physical and performed a pertinent physical examination on my patient. No changes have occurred unless specified.
[2021-01-22] VITALS (15 sets, daily range): BP systolic 121–168; BP diastolic 61–81; PULSE 60–88; RESP 14–18; TEMP 36–37.3; O2SAT 96–100
[2021-01-22] MEDS: Lactated Ringers 1,000 ML 100 ML IVCONT (07:02)
[2021-01-22 07:10] LABS: COVID-19 Test Negative (Negative)
--- NOTE | 2021-01-22 10:31 | PM.OP ---
Brief Operative Note Date of Service: 01/22/21 Pre-op diagnosis: Morbid obesity, BMI 48.4, slipped gastric band, and hypertension Post-op diagnosis: other ( same and hiatal hernia) Procedure: laparoscopic sleeve gastrectomy, removal of gastric band, hiatal hernia repair, intraoperative endoscopy, fidel block Implants: covidien andres Surgeon: Clare Mehta MD Anesthesia: GETA Was an Shock Absorption Floor Layer used for this Procedure?: Yes Shock Absorption Floor Layer: Deb Pantoja Estimated blood loss (mL): 20 Pathology: other ( partial gastrectomy) Condition: stable Disposition: PACU
--- NOTE | 2021-01-22 10:33 | P.OP_ITS ---
Operative Note Operative Note Date of Service: 01/22/21 Narrative: Patient was brought into the operating room and placed on the operating room table in the supine position. General anesthesia was induced. Normal DVT prophylaxis was instituted and the patient received 2 grams of cefotetan preoperatively. The abdomen was then prepped and draped in the normal sterile fashion. A safety time-out was performed. A mixture of 1% lidocaine with epinephrine and ?% Marcaine plain was used to a nesthetize the planned incision site in the left upper quadrant. A #11 scalpel was used to make a 5 mm left upper quadrant transverse incision through which a veress needle was placed. Three pops were heard going through the fascia. A saline drop test was used to confirm that the veress needle was intraabdominal. An optiview technique was then used to place a 5mm port in the left upper quadrant. A 5 mm 30 degree laproscope was then placed through this port and the abdominal cavity was surveyed and there was some omental adhesions to the lower midline abdominal wall. The gastric band tubing could be seen entering the abdominal wall in the epigastrium. The patient was placed in reverse Trendelenburg positioning. A shaka liver retractor was then placed in the subxyphoid position and it was used to hold up the left lobe of the liver to the abdominal wall. The slipped portion of the stomach above the gastric band could be seen and was adherent to the undersurface of the left lobe of the liver. The liver tractor was secured to the bed using the liver retractor bey. A NELL block was then performed for pain control on the right side of the abdomen. A 5 mm port was placed in the right upper quadrant near the falciform ligament. A 15 mm port was then placed in the lower mid epigastrium. One additional 5 mm port was placed in the left upper quadrant just to the left of the placement of the first port. I then performed a NELL block on the left side of the abdomen. I took down the adhesions from the gastric pouch to the undersurface of the left lobe of liver in their entirety. I then removed the epigastric fat pad; there was a Moderate-sized anterior hiatal hernia noted. I reapproximated the left and right crura with a total of 2 stitches of 2-0 ethibond and a la paroscopic knot pusher. There was no residual hiatal hernia. I then cut the tubing on the gastric band and unbuckled the gastric band. I removed the gastric band from its tunnel and removed it from the abdomen through the 15 mm port site. I then divided the capsule at the previous gastric band tunnel completely undoing the previous fundoplication. This allowed the stomach to lie flat. I then opened up the angle of His. We then gained entry into the lesser sac about 4-5 cm from the pylorus. I had anesthesia place a 34 Cam[place]onian orogastric tube into the distal antrum to use as a sizing tool for gastric pouch size. I divided the short gastric vessels up to the angle of His. We then started the creation of the gastric pouch by firing a 60 mm purple load endostapler up the stomach about 4-5 cm from the pylorus. We completed the creation of the gastric pouch using a total of 5 firings of a 60 mm and 1 firing of a 45 mm purple load stapler. We had anesthesia remove the orogastric tube, then we clamped across the distal antrum using a fired 60 mm endostapler. We flattened the patient and then instilled normal saline surrounding the newly created staple line. I then performed an on-table endoscopy. I passed the gastroscopy into the posterior oropharynx and down the esophagus evaluating the esophageal mucosa which was normal. There was no evidence of hiatal hernia. I passed the gastroscope into the gastric pouch and insufflated the gastric pouch. There was healthy pink mucosa and no evidence of active bleeding. There was no evidence of leak on laparoscopy. I desufflated the gastric pouch and removed the endoscope. I removed the endostapler from the abdomen and suctioned the fluid from the left upper quadrant. I then removed the partial gastrectomy specimen through the epigastric 15 mm port site. I then removed the subcutaneous gastric band port through the same 15 mm subcutaneous skin incision. I reapproximated the 15 mm port using a 0 maxon suture with a laparoscopic suture passer. I instilled local anesthetic into the fascial closure site and tied the suture down at a pressure of 8-10 mm of Hg. There was no residual fascial defect. We removed the liver retractor and the left upper quadrant 5 mm ports under direct visualization. There was no evidence of any active bleeding. I desufflated the abdomen through the last remaining port and removed the laparoscope and 5 mm port. We reapproximated all incisions with a 4-0 monocryl subcuticular stitch. We cleaned and dried the abdominal skin and applied dermabond skin glue. All count were correct at the end of the case. The patient was awake and in stable condition prior to extubation and transfer to the recovery room.
--- NOTE | 2021-01-22 10:41 | P.PNGS_ITS ---
Subjective Subjective Date of Service: 01/23/21 <Deb Pantoja PA-C - Last Filed: 01/23/21 10:21> 01/23/21 <Clare Mehta MD - Last Filed: 01/23/21 09:42> Interval history: Pod #1 s/p band removal and LSG. Doing well. Tolerating stage 3 diet, ambulating in hallway. Pain well controlled. Denies nausea or vomiting. Vitals and labs reviewed and are within limit for post op day 1. On exam, patient is well appearing, abdomen is soft, nd, mild appropriate incisional tenderness. Incisions c/d/i with dermabond in place. Plan: d/c home today. Follow up with me in 2 weeks. <Deb Pantoja PA-C - Last Filed: 01/23/21 10:21> This is a 60-year-old lady on postoperative day 1. Status post removal of gastric band conversion to sleeve gastrectomy with hiatal hernia repair doing well. Patient tolerating stage III diet. On physical exam abdomen is soft nondistended mild appropriate incisional tenderness. Incisions are clean dry intact with Dermabond in place. Vital signs and blood work are within normal limits for postoperative day 1. Assessment and plan. Patient is doing well status post the above-noted procedure she will be discharged home to follow-up with me again in 2 weeks time frame. <Clare Mehta MD - Last Filed: 01/23/21 09:42> Physical Exam Vital Signs: Vital Signs: Last Vital Signs Temp 98.5 F 01/22/21 10:25 Pulse 77 01/22/21 10:35 Resp 16 01/22/21 10:35 BP 160/77 H 01/22/21 10:35 Pulse Ox 96 01/22/21 10:35 Body Mass Index 47.6 <Deb Pantoja PA-C - Last Filed: 01/23/21 10:21> Const: General: cooperative, comfortable, no acute distress, alert and awake <Deb Pantoja PA-C - Last Filed: 01/23/21 10:21> Nutritional Appearance: obese <Deb Pantoja PA-C - Last Filed: 01/23/21 10:21> GI: Inspection: Yes normal to inspection, No distended and Yes incision (clean, dry, intact, dermabond in place) <Deb Pantoja PA-C - Last Filed: 01/23/21 10:21> Palpation (GI): Soft to palpation and Tenderness to palpation present (GI) (mild appropriate incisional tenderness) <JAYDEN Quiles Last Filed: 01/23/21 10:21> Extrem: Right lower extremity: lower leg Details: no tenderness; no edema <JAYDEN Quiles Last Filed: 01/23/21 10:21> Left lower extremity: lower leg Details: no tenderness; no edema <JAYDEN Quiles Last Filed: 01/23/21 10:21> Progress Note: A&P Assessment and plan (1) Morbid obesity: Status: Acute <JAYDEN Quiles Last Filed: 01/23/21 10:21> (2) Gastric band slippage: Status: Acute <JAYDEN Quiles Last Filed: 01/23/21 10:21> (3) History of removal of laparoscopic gastric banding device: Status: Acute <JAYDEN Quiles Last Filed: 01/23/21 10:21> (4) S/P laparoscopic sleeve gastrectomy: Status: Acute <JAYDEN Quiles Last Filed: 01/23/21 10:21> Assessment and Plan: d/c home today. Follow up in 2 weeks. <JAYDEN Quiles Last Filed: 01/23/21 10:21> Fall Risk Details Current Medications: Current Medications Generic Name Dose Route Start Last Admin Trade Name Freq PRN Reason Stop Dose Admin Albuterol Sulfate 2.5 mg 01/22/21 06:09 Albuterol Sulfate (0.083%) 2.5 Mg/3 Ml Vial.Neb INHALE ONCE PRN Shortness of Breath/Wheezing Famotidine 20 mg 01/22/21 21:00 Famotidine/Pf 20 Mg/2 Ml Vial IVPUSH BID MAYA Fentanyl 25 mcg 01/22/21 08:05 Fentanyl Citrate/Pf 100 Mcg/2 Ml Vial IVPUSH Q5M PRN Pain, Moderate (Pain Scale 4-6 Hydromorphone HCl 0.25 mg 01/22/21 08:05 Hydromorphone Hcl 0.5 Mg/0.5 Ml Syringe IVPUSH Q5M PRN Pain, Severe (Pain Scale 7-10) Hydromorphone HCl 0.25 mg 01/22/21 10:33 Hydromorphone Hcl 0.5 Mg/0.5 Ml Syringe IVPUSH Q4H PRN Pain, Severe (Pain Scale 7-10) Lactated Ringer's 1,000 mls @ 100 mls/hr 01/22/21 06:15 01/22/21 07:02 Lr IVCONT 100 mls/hr .Q10H [facility] Administration Promethazine HCl 6.25 mg/ 50.25 mls @ 201 mls/hr 01/22/21 08:09 Sodium Chloride IV ONCE PRN Nausea and Vomiting Lactated Ringer's 1,000 mls @ 125 mls/hr 01/22/21 10:45 Lr IVCONT .Q8H [facility] Cefotetan Disodium 2 gm/ 50 mls @ 100 mls/hr 01/22/21 10:33 Sodium Chloride IV 01/22/21 11:02 POSTOP ONE Acetaminophen 1,000 mg in 100 mls @ 16.7 mls/hr 01/22/21 10:45 Ofirmev IV .Q6H [facility] Lisinopril 10 mg 01/23/21 09:00 Lisinopril 10 Mg Tablet PO DAILY [facility] Protocol Metoclopramide HCl 10 mg 01/22/21 10:33 Metoclopramide Hcl 10 Mg/2 Ml Vial IVPUSH Q6H PRN Nausea Ondansetron HCl 4 mg 01/22/21 08:09 Ondansetron Hcl 4 Mg/2 Ml Vial IVPUSH ONCE PRN Nausea and Vomiting Ondansetron HCl 4 mg 01/22/21 10:45 Ondansetron Hcl 4 Mg/2 Ml Vial IVPUSH Q8H [facility] Sodium Chloride 3 ml 01/22/21 16:00 0.9 % Sodium Chloride Flush 3 M[facility] <Deb Pantoja PA-C - Last Filed: 01/23/21 10:21> Time Spent With Patient Time: Total time spent is greater than 50% in coordination of care (as documented) at patient's floor/unit and/or counseling patient: <Deb Pantoja PA-C - Last Filed: 01/23/21 10:21> Time with patient: less than 15 minutes <Clare Mehta MD - Last Filed: 01/23/21 09:42> Procedures Date of Service Date of Service: 01/23/21 <Clare Mehta MD - Last Filed: 01/23/21 09:42> Quality Stroke Does the patient have a stroke diagnosis?: No <Clare Mehta MD - Last Filed: 01/23/21 09:42> VTE Prior VTE?: No <Clare Mehta MD - Last Filed: 01/23/21 09:42> VTE Risk Level:: Surgical - moderate <Clare Mehta MD - Last Filed: 01/23/21 09:42> VTE Device Contraindication: N/A - Device Ordered <Clare Mehta MD - Last Filed: 01/23/21 09:42> VTE Drug Contraindication: N/A - Med Ordered <Clare Mehta MD - Last Filed: 01/23/21 09:42>
--- NOTE | 2021-01-22 10:41 | PM.DS ---
DS: Providers Provider Date of Service: 01/23/21 Primary care physician: Robert Torres MD DS: Medications Discharge Medications Home Medications: Home Medications Medication Instructions Recorded Confirmed epinephrine 0.3 mg/0.3 mL 0.3 mg IM Q15M PRN 07/25/20 01/16/21 injection, auto-injector lisinopril 10 mg tablet 10 mg PO DAILY 07/25/20 01/16/21 acetaminophen 650 mg 650 mg PO Q8H PRN 11/08/20 01/16/21 tablet,extended release zinc sulfate 50 mg zinc (220 mg) 50 mg PO DAILY 11/08/20 01/16/21 capsule biotin 10,000 mcg capsule 10,000 mcg PO DAILY 12/10/20 01/16/21 omeprazole 20 mg capsule,delayed 20 mg PO DAILY cap 12/10/20 01/16/21 release turmeric 400 mg capsule 400 mg PO .qod cap 12/10/20 01/16/21 Previous Rx's Medication Instructions Recorded thiamine HCl (vitamin B1) 100 mg 100 mg PO DAILY 30 Days #30 tab 11/13/20 tablet acetaminophen 500 mg tablet 1,000 mg PO Q6H PRN #30 tab 12/30/20 docusate sodium 100 mg capsule 100 mg PO BID #30 cap 12/30/20 ondansetron HCl 4 mg tablet 4 mg PO Q6H PRN #30 tab 12/30/20 simethicone 80 mg chewable tablet 80 mg PO TID-QID PRN #30 tab 12/30/20 DS: Summary Time Spent with Patient Time attestation: Total time spent providing and/or coordinating discharge services: Discharge coordination time: Greater than 30 minutes Quality: Stroke Does the patient have a stroke diagnosis?: No Physical Exam Vital Signs: Vital Signs: Last Vital Signs Temp 98.5 F 01/22/21 10:25 Pulse 77 01/22/21 10:35 Resp 16 01/22/21 10:35 BP 160/77 H 01/22/21 10:35 Pulse Ox 96 01/22/21 10:35 Body Mass Index 47.6 DS: Data Data Completed and Pending Pending studies at discharge: Pending at discharge 01/22/21 09:37 Surgical [PTH] Routine Labs on day of discharge: Laboratory Results - last 24 hr 01/21/21 01/22/21 08:35 06:45 COVID-19 ([facility]) Negative COVID-19 Clin Com See Note Blood Type O Positive Antibody Screen NEGATIVE Discharge Plan Discharge Patient Disposition: Home, Self-Care Discharge Diagnosis: obesity and slipped gastric band, s/p band removal and lap sleeve gastrectomy Referrals: Robert Torres MD [Primary Care Provider] - 1 Week Discharge Medications: Continued thiamine HCl (vitamin B1) 100 mg tablet 100 mg PO DAILY 30 Days Qty: 30 RF: 2 omeprazole 20 mg capsule,delayed release(DR/EC) 20 mg PO DAILY RF: 0 biotin 10,000 mcg capsule 10,000 mcg PO DAILY RF: 0 turmeric 400 mg capsule 400 mg PO .qod RF: 0 lisinopril 10 mg tablet 10 mg PO DAILY RF: 0 epinephrine [EpiPen 2-Nishant] 0.3 mg/0.3 mL auto-injector 0.3 mg IM Q15M PRN (Reason: Allergic Reaction) RF: 0 zinc sulfate 50 mg zinc (220 mg) capsule 50 mg PO DAILY RF: 0 acetaminophen [Tylenol Extra Strength] 500 mg tablet 1,000 mg PO Q6H PRN (Reason: pain) Qty: 30 RF: 1 simethicone [Gas Relief (simethicone)] 80 mg tablet,chewable 80 mg PO TID-QID PRN (Reason: abdominal distention) Qty: 30 RF: 1 ondansetron HCl [Zofran] 4 mg tablet 4 mg PO Q6H PRN (Reason: nausea and vomiting) Qty: 30 RF: 1 docusate sodium [Colace] 100 mg capsule 100 mg PO BID Qty: 30 RF: 1 Discontinued acetaminophen 650 mg tablet extended release 650 mg PO Q8H PRN (Reason: Pain) RF: 0 Discharge Orders: Discharge Order (Routine); Ordered 01/23/21 Ordered By: Deb Pantoja Diet: other Activity on Discharge: No heavy lifting Stand Alone Forms: Patient Portal Discharge page Activity Restrictions/Additional Instructions: Discharge Instructions 1. Please call your doctor or come back to the emergency room should any new symptoms arise. 2. You will receive a courtesy call from [facility] 24-48 hours after discharge. 3. Activity: abstain from alcohol, practice limited stair climbing, no bending, no driving, no exercise, no illicit substances, no lifting, no sex, no tub bath, no work. 4. Diet: continue stage 3 protein shakes until your [address] Mehta. 5. Dressing Change/Wound Care: Your incision is covered by surgical glue. If the area is tender, you may apply an ice pack for short intervals (no more than 20 minutes on, followed by at least 20 minutes off). Do not apply heat. Do not use creams, lotions, or topical antibiotics unless instructed to do so by your surgeon. These can cause infection or allergic reaction. 6. Call your doctor if: - Your temperature exceeds 101.5 F - You experience excessive pain or swelling - You have an unexpected reaction to medication - You have excessive bleeding - You experience continued vomiting/nausea - Your incision begins to separate - Your incision shows signs of infection such as increased redness, swelling, excessive pain, heat, or drainage (light blood or clear fluid is normal) 7. General instructions: - No lifting greater than 5 lbs for the next 4 weeks. - No driving within 24 hours of taking narcotic pain medications. - If you do not move your bowels in the next 2 days, please take milk of magnesia over the counter. Please follow the post op diet and do not advance your diet until you are seen in the office in about 2 weeks. - Please walk around your home every hour or two to prevent blood clots from forming in your legs. You do not need to wake from sleeping to walk. - Please sleep in a bed or couch to prevent kinking at the hips and knees. - Please take your incentive spirometer (your lung salesperson trailers and motor homes) home with you and use it for the next few days to prevent pneumonias. - You may shower, no hot tubs, baths or swimming pools. - Please call the office with any questions or concerns such as increasing abdominal pain, fever, chills, shortness of breath, chest pain, leg pain or swelling, or redness or drainage from your incisions. - Please stay on stage 3 diet which includes sugar free clear liquids such as ice pops and jello and broth and crystal light. Avoid all carbonation. Please drink 3 protein shakes with at least 25-30 grams of protein daily or 3 of the Celebrate 4:1 shakes which can be purchased in our office. The Celebrate shakes have all of the bariatric vitamins you need if you consume these shakes. If you are drinking other protein shakes, you will need to purchase the Celebrate multivitamins and calcium that we provide in the office (they will provide all the vitamins you need). Please make sure you are consuming at least 40-60 ounces of water in addition to your 3 protein shakes daily. 8. Do not hesitate to contact the office with any questions at . The patient's medical history has been reviewed and they are considered low risk for post op DVT and therefore DVT prophylaxis is not considered necessary. Travel after surgery was reviewed. The patient has not disclosed any travel plans during the first 30 days after surgery and they have been advised that within the first 30 days after surgery any bus, plane, train or car travel over 2 hours in duration is contraindicated due to the possibility of developing blood clots from immobility. Any travel, needs to include periods of ambulation of 10 minutes in duration every 2 hours. The patient was instructed to discuss any plans for travel during this period with their bariatric surgeon. Discharge Summary Date of Service: 01/23/21 Pre-op diagnosis: Morbid obesity, BMI 48.4, slipped gastric band, and hypertension Post-op diagnosis: other ( same and hiatal hernia) Procedure: laparoscopic sleeve gastrectomy, removal of gastric band, hiatal hernia repair, intraoperative endoscopy, fidel block Discharge Medications: 1. Simethicone 80mg tablet chewable (Si tablet every 6 hours orally for 7 days, #28, 1 RF) q4h prn gas 2. Acetaminophen 500 mg tablet (Si tablets as needed every 6 hours orally for 30 days, #240, 0 RF) 3. Ondansetron 4 mg tablet disintegrating (Si tablet every 6 hours orally for 7 days, #28, 1 RF) 4. Colace 100 mg capsule (Si capsule twice a day for 30 days, #60, 2 RF) 5. Pepcid 20 mg chewable tablet (Si tablet twice a day for 30 days, #60, 3 RF) Discharge Instructions: The patient should continue on the stage III bariatric diet, which includes 3 protein shakes of at least 20-30g of protein on a daily basis. The patient was encouraged to avoid drinking liquids with her protein shakes. They should wait 30-45 minutes in between her meals and drinking water. She should drink at least 40-60 ounces of water on a daily basis. They should ambulate while at home to avoid any blood clots in her lower extremities. They should call with any questions or concerns such as increase in abdominal pain, persistent nausea, vomiting, redness and drainage from her incisions, fever, chills, shortness of breast, or chest pain beyond what is normal for her. The patient should avoid all heavy lifting greater than 5 pounds for the next 4 weeks. The patient is already scheduled to follow up with me in 2 weeks time, but should call the office with any questions prior to that follow up appointment. The patient should not advance their diet until they are seen in the office for the 2 week appointment. Hospital Course: The patient was admitted after undergoing removal of gastric band, and conversion to laparoscopic sleeve gastrectomy. They were started on stage II (1 oz of fluid every 15 minutes) on POD #0. The next morning they were evaluated and started on stage III diet (protein shakes). All labs were within normal limits. On post-operative day #1 she was feeling better, nausea and epigastric pain improved and they were tolerating stage III bariatric diet well. The patient was discharged home. Discharge Disposition: Home. Care Plan Goals: weight loss Health Concerns: obesity, slipped gastric band Plan of Treatment: removal of band, sleeve gastrectomy Assessment: 1 day s/p band removal and sleeve gastrectomy, stable, discharged home
[2021-01-22] MEDS: HYDROmorphone HCl 0.5 MG/0.5 ML SYRINGE 0.25 MG IVPUSH ×3 (11:00→20:06)
[2021-01-22] MEDS: Lactated Ringers 1,000 ML 125 ML IVCONT ×2 (11:49→19:12)
[2021-01-22] MEDS: ondansetron HCL 4 MG/2 ML VIAL IVPUSH ×2 (11:49→17:54)
[2021-01-22] MEDS: diphenhydrAMINE HCL 25 MG TABLET PO (13:44)
[2021-01-22] MEDS: lisinopriL 10 MG TABLET PO (13:44)
[2021-01-22] MEDS: cefoTEtan disodium 2 GM in 0.9 % Sodium Chloride 50 ML IV (19:08)
[2021-01-22] MEDS: 0.9 % Sodium Chloride Flush 3 ML SYRINGE IVFLUSH (20:07)
[2021-01-22] MEDS: Famotidine/PF 20 MG/2 ML VIAL IVPUSH (20:07)
[2021-01-23] MEDS: ondansetron HCL 4 MG/2 ML VIAL IVPUSH (02:43)
[2021-01-23] MEDS: Lactated Ringers 1,000 ML 125 ML IVCONT (02:44)
[2021-01-23 03:35] VITALS: BP 139/52; PULSE 67; RESP 17; TEMP 37; O2SAT 98
[2021-01-23 06:53] LABS: MANUAL DIFF FLAG NO
[2021-01-23 07:05] LABS: Basophils Percent Auto 0.2 % (0-2); Hemoglobin 12.4 g/dl (12.0-16.0); Imm Gran Abs Auto 0.05 X10*3/uL (0.00-0.03); Imm Gran Pct Auto 0.4 % (0.0-0.4); Lymphocytes Absolute Auto 1.4 X10*3/uL (1.2-4.9); Lymphocytes Percent Auto 12.3 % (20-40); Mean Corpuscular HGB Conc 32.6 g/dl (31.0-35.0); Mean Platelet Volume 11.1 fL (9.4-12.3); Monocytes Absolute Auto 0.8 X10*3/uL (0.1-1.2); Monocytes Percent Auto 6.8 % (2-11); Neutrophils Absolute Auto 9.3 X10*3/uL (2.0-8.3); Neutrophils Percent Auto 80.3 % (45-73); Platelet Count 148 X10*3/uL (160-400); Red Blood Count 4.27 X10*6/uL (4.20-5.50); Red Cell Distribution Width 14.3 % (11.0-16.0); White Blood Count 11.6 X10*3/uL (4.8-10.8)
[2021-01-23 07:40] LABS: Anion Gap 9 (12-20); Blood Urea Nitrogen 10 mg/dL (9-16); Calcium 8.7 mg/dL (8.4-10.2); Carbon Dioxide 28 mmol/L (22-29); Chloride 107 mmol/L (96-108); Creatinine Clr Calc Pharmacy 116.5; Estimated Glomerular Filt Rate > 60; Glucose Random 93 mg/dL (60-115); Potassium 4.4 mmol/L (3.3-5.1); Sodium 140 mmol/L (135-145)
[2021-01-23] MEDS: Famotidine/PF 20 MG/2 ML VIAL IVPUSH (07:41)
[2021-01-23] MEDS: lisinopriL 10 MG TABLET PO (07:44)
[2021-01-23 07:47] VITALS: BP 162/76; PULSE 63; RESP 19; TEMP 36.7; O2SAT 96
--- NOTE | 2021-01-23 10:12 | MHC.CM.PN ---
EMR REVIEWED, PT ADMITTED S/P LAP SLEEVE GASTRECTOMY AND SLIPPED LAP BAND W/REMOVAL, HIATAL HERNIA REPAIR AND INTRAOP ENDOSCOPY, CM MET W/ PT WHO REPORTS SHE LIVES ALONE, IS INDEPENDENT W/ALL CARE AND HAS NO DME OR HOME SERVICES, PT DOES NOT ANTICIPATE ANY NEEDS AFTER D/C, PT VERIFIES PCP FUAD CABAN AND WOULD LIKE TO COMPLETE A HCP PRIOR TO D/C. D/C PLAN: HOME SELF-CARE TODAY, FAMILY FOR TRANSPORT.
--- NOTE | 2021-01-23 12:56 | HO.POSTANES ---
Post Anesthesia Evaluation Post Anesthesia Evaluation Vital Signs: Vital Signs Temp Pulse Resp BP Pulse Ox 01/23/21 07:47 98.0 F 63 19 162/76 H 96 01/23/21 03:35 98.6 F 67 17 139/52 L 98 Anesthesia: General Endotracheal-GETA Mental Status: Awake Pain Control: Satisfactory Nausea/Vomiting: None Hydration: Adequate Anesthesia-Related Issues: No Anes. Related Issues
[2021-01-25 11:56] LABS: Vitamin B1 13 nmol/L (8-30)
[2021-01-28 19:37] LABS: Cotinine, U 737 ng/mL; Nicotine, U 145 ng/mL
== END 2021-01-23 11:12 | disposition home or self-care (01) | DRG 403 ==
LOC: HO.SSSA 10:54 → HO.S3 11:00
PROVIDERS: Physician Assistant; Admitting Provider Surgery; PCP Internal Medicine; Visit Provider Surgery
PROC: 0DB64Z3 Excision of Stomach, Percutaneous Endoscopic Approach, Vertical (ICD-10-PCS; principal; 2021-01-22 07:30)
DX: E66.01 Morbid (severe) obesity due to excess calories (principal); T85.528A Displacement of other gastrointestinal prosthetic devices, implants and grafts, initial encounter; F17.210 Nicotine dependence, cigarettes, uncomplicated; K44.9 Diaphragmatic hernia without obstruction or gangrene; M06.9 Rheumatoid arthritis, unspecified; Z20.822 Contact with and (suspected) exposure to COVID-19; Z71.6 Tobacco abuse counseling; Z68.42 Body mass index [BMI] 45.0-49.9, adult; Z79.899 Other long term (current) drug therapy
CPT/HCPCS: 36415; 80048; 80323; 81001; 81003; 82040; 82306; 84425; 85025; 85610; 85730; 86850; 86900; 86901; 87086; 87635; 88307; 88342; 99024; J0131; J1100; J1170; J2250; J2405; J3010; Q0163

== ENCOUNTER → 2021-02-06 10:00 | Outpatient (BNVA) | payer OTHER, SELFPAY | PROVIDERS: PCP Internal Medicine; Referring Provider Internal Medicine; Visit Provider Surgery | DX: E66.01 Morbid (severe) obesity due to excess calories (principal); K21.00 Gastro-esophageal reflux disease with esophagitis, without bleeding; I10 Essential (primary) hypertension; F17.210 Nicotine dependence, cigarettes, uncomplicated; Z68.42 Body mass index [BMI] 45.0-49.9, adult; Z91.030 Bee allergy status; Z87.19 Personal history of other diseases of the digestive system; Z90.3 Acquired absence of stomach [part of]; Z98.890 Other specified postprocedural states; Z98.84 Bariatric surgery status; Z79.899 Other long term (current) drug therapy | CPT/HCPCS: 99212 ==

== ENCOUNTER → 2021-03-06 13:40 | Outpatient (BNVA) | payer OTHER, SELFPAY | PROVIDERS: PCP Internal Medicine; Visit Provider Physician Assistant | DX: E66.01 Morbid (severe) obesity due to excess calories (principal); Z98.84 Bariatric surgery status; Z68.42 Body mass index [BMI] 45.0-49.9, adult | CPT/HCPCS: 99212 ==

== ENCOUNTER → 2021-03-27 12:48 | Outpatient (BNVA) | payer OTHER, SELFPAY | PROVIDERS: PCP Internal Medicine; Referring Provider Internal Medicine; Visit Provider Dietitian, Registered | DX: E66.9 Obesity, unspecified (principal); Z68.42 Body mass index [BMI] 45.0-49.9, adult | CPT/HCPCS: 97803 ==

== ENCOUNTER → 2021-04-17 13:14 | Outpatient (BNVA) | payer OTHER, SELFPAY | PROVIDERS: PCP Internal Medicine; Referring Provider Internal Medicine; Visit Provider Surgery | DX: Z98.84 Bariatric surgery status (principal); Z98.890 Other specified postprocedural states; Z87.19 Personal history of other diseases of the digestive system | CPT/HCPCS: 99212 ==

== ENCOUNTER → 2021-05-22 09:37 | Outpatient (BNVA) | payer OTHER, SELFPAY | PROVIDERS: Referring Provider Internal Medicine; Visit Provider Internal Medicine Gastroenterology | DX: E66.01 Morbid (severe) obesity due to excess calories (principal); Z98.84 Bariatric surgery status; Z68.41 Body mass index [BMI] 40.0-44.9, adult | CPT/HCPCS: 99212 ==

== ENCOUNTER 2021-05-23 07:59 | Outpatient (REF) | payer OTHER, SELFPAY ==
[2021-05-23 09:11] LABS: Estimated Average Glucose 105 mg/dL; Hemoglobin A1c % 5.3 %
[2021-05-23 09:17] LABS: Alanine Aminotransferase 18 U/L (0-31); Albumin Level 3.9 g/dL (3.5-5.0); Alkaline Phosphatase 116 U/L (39-117); Anion Gap 10 (12-20); Aspartate Amino Transferase 18 U/L (5-31); Bilirubin Total 0.6 mg/dL (0.0-1.0); Blood Urea Nitrogen 9 mg/dL (9-16); C Reactive Protein 0.18 mg/dL (< or = 0.50); Calcium 9.2 mg/dL (8.4-10.2); Carbon Dioxide 30 mmol/L (22-29); Chloride 106 mmol/L (96-108); Estimated Glomerular Filt Rate > 60; Glucose Random 87 mg/dL (60-115); Iron 66 mcg/dL (30-160); Percent Iron Saturation 22 % (15-50); Sodium 142 mmol/L (135-145); Total Iron Binding Capacity 300 mcg/dL (228-428); Total Protein 6.6 g/dL (6.5-8.0); Unsaturated Iron Binding 234 ug/dL
[2021-05-23 09:39] LABS: TSH reflex Free T4 2.03 uIU/mL (0.32-4.0); Vitamin D 25-OH Total 28.1 ng/mL (>30)
[2021-05-23 09:59] LABS: Folate 6.1 ng/mL (> or = 4.0); Vitamin B12 597 pg/mL (200-900)
[2021-05-23 10:10] LABS: Ferritin 61 ng/mL (10-250)
[2021-05-26 14:31] LABS: Calcium (PTHI) 9.4 mg/dL (8.6-10.4); PTHI 37 pg/mL (14-64)
[2021-05-28 02:17] LABS: Zinc 101 mcg/dL (60-130)
[2021-05-28 18:42] LABS: Vitamin A 38 mcg/dL (38-98)
[2021-05-29 05:57] LABS: Vitamin B1 <6 nmol/L (8-30)
== END 2021-05-23 08:00 | disposition home or self-care (01) ==
LOC: HO.LAB 07:59
PROVIDERS: PCP Internal Medicine; Visit Provider Physician Assistant Surgical
DX: E66.01 Morbid (severe) obesity due to excess calories (principal); Z98.84 Bariatric surgery status
CPT/HCPCS: 36415; 80053; 82306; 82607; 82728; 82746; 83036; 83540; 83970; 84425; 84443; 84590; 84630; 86140

== ENCOUNTER → 2021-06-04 10:22 | Outpatient (BNVA) | payer OTHER, SELFPAY | PROVIDERS: Referring Provider Internal Medicine; Visit Provider Physician Assistant Surgical | DX: E66.01 Morbid (severe) obesity due to excess calories (principal); Z98.84 Bariatric surgery status; Z68.41 Body mass index [BMI] 40.0-44.9, adult | CPT/HCPCS: 99212 ==

== ENCOUNTER 2021-07-24 08:32 | Outpatient (REF) | payer OTHER, SELFPAY ==
[2021-07-24 09:38] LABS: MANUAL DIFF FLAG NO
[2021-07-24 09:54] LABS: Basophils Percent Auto 0.6 % (0-2); Eosinophils Absolute Auto 0.1 X10*3/uL (0.0-0.4); Eosinophils Percent Auto 1.5 % (0-4); Hematocrit 39.3 % (37.0-47.0); Hemoglobin 12.8 g/dl (12.0-16.0); Imm Gran Abs Auto 0.01 X10*3/uL (0.00-0.03); Imm Gran Pct Auto 0.3 % (0.0-0.4); Lymphocytes Absolute Auto 1.8 X10*3/uL (1.2-4.9); Lymphocytes Percent Auto 54.4 % (20-40); Mean Corpuscular HGB Conc 32.6 g/dl (31.0-35.0); Mean Corpuscular Hemoglobin 28.9 pg (27.0-33.0); Mean Corpuscular Volume 88.7 fL (80.0-98.0); Mean Platelet Volume 10.5 fL (9.4-12.3); Monocytes Absolute Auto 0.3 X10*3/uL (0.1-1.2); Monocytes Percent Auto 9.5 % (2-11); Neutrophils Absolute Auto 1.1 x10*3/uL (2.0-8.3); Neutrophils Percent Auto 33.7 % (45-73); Platelet Count 172 X10*3/uL (160-400); Red Blood Count 4.43 X10*6/uL (4.20-5.50); Red Cell Distribution Width 14.4 % (11.0-16.0); White Blood Count 3.4 X10*3/uL (4.8-10.8)
[2021-07-24 10:08] LABS: Estimated Average Glucose 108 mg/dL; Hemoglobin A1c % 5.4 %
[2021-07-24 10:21] LABS: Anion Gap 8 (12-20); Blood Urea Nitrogen 11 mg/dL (9-16); C Reactive Protein 0.22 mg/dL (< or = 0.50); Calcium 9.3 mg/dL (8.4-10.2); Carbon Dioxide 29 mmol/L (22-29); Chloride 108 mmol/L (96-108); Cholesterol 163 mg/dL; Estimated Glomerular Filt Rate > 60; Glucose Random 86 mg/dL (60-115); HDL Cholesterol 48 mg/dL; Iron 106 mcg/dL (30-160); LDL Cholesterol Calculated 99 mg/dl; Percent Iron Saturation 35 % (15-50); Potassium 4.2 mmol/L (3.3-5.1); Sodium 141 mmol/L (135-145); Total Iron Binding Capacity 303 mcg/dL (228-428); Triglycerides 81 mg/dL; Unsaturated Iron Binding 197 ug/dL
[2021-07-24 10:44] LABS: Ferritin 60 ng/mL (10-250); TSH reflex Free T4 1.76 uIU/mL (0.32-4.0); Vitamin D 25-OH Total 23.5 ng/mL (>30)
[2021-07-24 10:50] LABS: Folate 18.5 ng/mL (> or = 4.0); Vitamin B12 909 pg/mL (200-900)
[2021-07-28 13:32] LABS: Calcium (PTHI) 9.6 mg/dL (8.6-10.4); PTHI 48 pg/mL (14-64)
[2021-07-29 02:11] LABS: Zinc 81 mcg/dL (60-130)
[2021-07-29 19:17] LABS: Vitamin A 38 mcg/dL (38-98)
[2021-07-30 05:40] LABS: Vitamin B1 13 nmol/L (8-30)
== END 2021-07-24 08:33 | disposition home or self-care (01) ==
LOC: HO.LAB 08:32
PROVIDERS: PCP Internal Medicine; Referring Provider Internal Medicine; Visit Provider Physician Assistant Surgical
DX: E66.01 Morbid (severe) obesity due to excess calories (principal); Z87.19 Personal history of other diseases of the digestive system; Z98.890 Other specified postprocedural states
CPT/HCPCS: 36415; 80048; 80061; 82306; 82607; 82728; 82746; 83036; 83540; 83970; 84425; 84443; 84590; 84630; 85025; 86140; 99212

== ENCOUNTER 2021-09-17 07:48 | Outpatient (REF) | payer OTHER, SELFPAY ==
--- NOTE | ~2021-09-17 | MM_ITS ---
EXAMINATION: MM SCREENING DIGITAL BREAST TOMOSYNTHESIS, BILATERAL CLINICAL INFORMATION: Screening. Asymptomatic. The lifetime risk of breast cancer based on the Tyrer-Cuzick Model is 13%. COMPARISON: Mammography: 09/03/2020, 08/29/2019, 08/25/2018 TECHNIQUE: Digital breast tomosynthesis is performed in both the craniocaudal and mediolateral oblique views along with computer-aided detection (CAD). Synthesized 2D images are generated from the tomosynthesis. Additional views are provided: Bilateral exaggerated CC, bilateral MLO. FINDINGS: There are scattered areas of fibroglandular density (ACR BI-RADS breast composition Category b). There is fibronodular parenchymal pattern similar to prior studies. There are scattered bilateral minor stable asymmetries. Parenchymal pattern is similar to prior studies. There is no developing density or architectural abnormality. The axilla and skin contours are unremarkable. No significant changes. MM/MM tomosynthesis screening BI IMPRESSION: No mammographic evidence of malignancy. ASSESSMENT: BI-RADS 2: Benign RECOMMENDATION: Routine annual mammography screening. This patient's information was entered into a reminder system with a target due date for their next mammogram.
== END 2021-09-17 07:49 | disposition home or self-care (01) ==
LOC: HO.MAMMO 07:48
PROVIDERS: Visit Provider Internal Medicine
DX: Z12.31 Encounter for screening mammogram for malignant neoplasm of breast (principal)
CPT/HCPCS: 77063; 77067

== ENCOUNTER 2021-12-30 16:37 | Outpatient (REF) | payer OTHER, SELFPAY ==
--- NOTE | ~2021-12-30 | XR_ITS ---
EXAMINATION: XR FINGER, LEFT CLINICAL INFORMATION: Pain in the fifth digit. COMPARISON: None TECHNIQUE: Three views of the left small finger. FINDINGS: No acute fracture or malalignment. Very small ossific body adjacent to the lateral surface of the DIP joint of the third digit, likely related with a small degenerative osteophyte. Moderate degenerative osteoarthrosis of the first CMC joint and triscaphe space, with nonspecific cortical deformity of the medial surface of the distal radial, described on same-day radiograph of the wrist (refer to this prior report). XR/XR finger LT min 2V IMPRESSION: No acute fracture or malalignment. Mild degenerative osteoarthritis of the DIP joint of the third digit. Moderate degenerative osteoarthritis of the first CMC joint and triscaphe space.
--- NOTE | ~2021-12-30 | XR_ITS ---
EXAMINATION: XR KNEE, LEFT CLINICAL INFORMATION: Pain. COMPARISON: None TECHNIQUE: Four views of the left knee. FINDINGS: No acute fracture or malalignment. Severe tricompartmental degenerative osteoarthritis, more noticeable in the medial and patellofemoral compartments manifested by joint space narrowing, subcortical cystic changes and sclerosis, and marginal osteophytes. No discrete erosion or chondrocalcinosis. Diffuse nonspecific soft tissue swelling. No large joint effusion. XR/XR knee LT 4V IMPRESSION: No acute fracture or malalignment. Severe tricompartmental degenerative osteoarthritis.
--- NOTE | ~2021-12-30 | XR_ITS ---
EXAMINATION: XR WRIST, LEFT CLINICAL INFORMATION: Pain in the left wrist. COMPARISON: Radiograph of the left wrist dated from 02/19/2017. TECHNIQUE: PA, lateral, and oblique views of the left wrist. FINDINGS: No acute fracture or malalignment. Carpal rows are maintained. The scapholunate interval is within normal limits. Nonspecific cortical irregularity in the medial surface of the distal radius, possibly sequela prior trauma or degenerative. Moderate osteoarthrosis of the first CMC joint and triscaphe space, progressed since 2017. No erosions. No significant soft tissue abnormality. XR/XR wrist LT min 3V IMPRESSION: 1. Nonspecific cortical irregularity of the distal radius, medial aspect possibly sequela of prior trauma or degenerative changes. Correlate for point tenderness. 2. Moderate osteoarthrosis of the first CMC joint and triscaphe space, increased since 2017.
== END 2021-12-30 16:38 | disposition home or self-care (01) ==
LOC: HO.XRAY 16:37
PROVIDERS: PCP Internal Medicine; Visit Provider Internal Medicine
DX: L03.012 Cellulitis of left finger (principal); M79.645 Pain in left finger(s); M25.532 Pain in left wrist; M25.562 Pain in left knee
CPT/HCPCS: 73110; 73140; 73564

== ENCOUNTER 2022-01-14 09:59 | Inpatient (IN) | payer OTHER, SELFPAY ==
--- NOTE | ~2022-01-14 | FL_ITS ---
EXAMINATION: XR FLUOROSCOPY WITH IMAGES CLINICAL INFORMATION: Finger possible amputation COMPARISON: X-rays of the left hand 01/14/2022 TECHNIQUE: Fluoroscopy performed by operating surgeon. DOSE: 0.1235 MGY: 2 IMAGES submitted DAP: 0.0075 GYCM FINDINGS: Intraoperative fluoroscopically guided spot images obtained of the small finger. The first demonstrates the destructive changes of the distal phalanx as seen on prior x-rays. The second image demonstrates surgery middle phalanx The radiopaque object overlies the proximal fifth metacarpal carpal FL/FL guidance in OR IMPRESSION: Intraoperative findings as above. See detailed operative report for further information
--- NOTE | ~2022-01-14 | XR_ITS ---
EXAMINATION: XR HAND, LEFT CLINICAL INFORMATION: F0 left fifth finger. COMPARISON: None TECHNIQUE: PA, lateral, and oblique views of the left hand. XR/XR hand LT 2V FINDINGS/IMPRESSION: Examination demonstrates extensive, aggressive-appearing, destructive, lytic changes involving the left fifth distal phalanx, with associated soft tissue swelling. Differential diagnosis includes, but is not limited to, osteomyelitis, and, less likely, neoplasm, etc. Clinical correlation is recommended. The study is otherwise unremarkable.
[2022-01-14 10:17] VITALS: BP 97/61; PULSE 63; RESP 20; TEMP 36.9; O2SAT 99; BMI 40.3
[2022-01-14 10:31] LABS: Eosinophils Absolute Auto 0.1 X10*3/uL (0.0-0.4); Eosinophils Percent Auto 2.6 % (0-4); Hematocrit 40.7 % (37.0-47.0); Imm Gran Abs Auto 0.01 X10*3/uL (0.00-0.03); Imm Gran Pct Auto 0.2 % (0.0-0.4); Lymphocytes Absolute Auto 2.2 X10*3/uL (1.2-4.9); Lymphocytes Percent Auto 52.6 % (20-40); MANUAL DIFF FLAG SCAN; Mean Corpuscular HGB Conc 31.9 g/dl (31.0-35.0); Mean Corpuscular Hemoglobin 29.3 pg (27.0-33.0); Mean Corpuscular Volume 91.7 fL (80.0-98.0); Monocytes Absolute Auto 0.4 X10*3/uL (0.1-1.2); Monocytes Percent Auto 9.8 % (2-11); Neutrophils Absolute Auto 1.4 x10*3/uL (2.0-8.3); Neutrophils Percent Auto 33.8 % (45-73); PLT CLUMP 1; Red Blood Count 4.44 X10*6/uL (4.20-5.50); Red Cell Distribution Width 13.5 % (11.0-16.0); SCAN SMEAR FLAG 1
--- NOTE | 2022-01-14 10:34 | ED_ITS ---
HPI - Skin/Abscess/Foreign Bdy General Chief complaint: Skin/Abscess/Foreign Body Stated complaint: Infection Pinky Finger L Hand Time Seen by Provider: 01/14/22 10:34 Source: patient Mode of arrival: ambulatory Limitations: no limitations History of Present Illness HPI narrative: Patient is a 61 year old female presenting to the emergency department today with a left pinky infection. Patient states that last month, her left 5th finger nail came off and it got infected. Patient states that her PCP drained the area, and started her on antibiotics. Patient states that was 3 weeks ago. Patient states that she was seen 2 weeks ago at Urgent care for the same area as it was still draining pus even after ABX. Patient states that she was given another dose of antibiotics however, it is not improving and it is getting worse. Patient denies any dizziness, lightheadedness, abdominal pain, nausea, vomiting, fever, chills, blurry vision, double vision, loss of vision, chest pain, difficulty breathing, shortness of breath, back pain, night sweats, pain with urination, increased urinary frequency, increased urinary urgency, blood in her urine or stool, syncope or a near syncopal episode, recent trauma or falls, bowel incontinence, bladder incontinence, bowel retention, bladder retention, or any other complaints at this time. MD complaint: abscess/boil Onset (ago): month(s) (1) Severity: mild Severity scale (1-10): 4 Quality: dull Pain Consistency: constant Relieving factors: none Exacerbating factors: none Context: none Associated symptoms: denies other symptoms Treatments prior to arrival: antibiotic Related Data Home Medications Medication Instructions Recorded Confirmed epinephrine 0.3 mg/0.3 mL 0.3 mg IM Q15M PRN Allergic 07/25/20 07/24/21 injection, auto-injector (EpiPen Reaction 2-Nishant) lisinopril 10 mg tablet 10 mg PO DAILY 07/25/20 01/14/22 zinc sulfate 50 mg zinc (220 mg) 50 mg PO DAILY 11/08/20 07/24/21 capsule turmeric 400 mg capsule 400 mg PO .qod 12/10/20 07/24/21 ztcjzvxg-kjchgujs-goez 45 mg-folic 1 cap PO DAILY 04/17/21 07/24/21 acid 800 mcg-vit K 120 mcg capsule (Bariatric Multivitamins) acetaminophen 650 mg 1 tab PO Q8H PRN pain 01/14/22 01/14/22 tablet,extended release mupirocin 2 % topical ointment ea topical TID 01/14/22 omeprazole 20 mg capsule,delayed 1 cap PO DAILY 01/14/22 01/14/22 release sulfamethoxazole 800 1 tab PO Q12H 01/14/22 01/14/22 mg-trimethoprim 160 mg tablet Previous Rx's Medication Instructions Recorded cholecalciferol (vitamin D3) 125 125 mcg PO DAILY #30 caps 11/18/21 mcg (5,000 unit) capsule thiamine HCl (vitamin B1) 100 mg 100 mg PO DAILY #30 tabs 11/18/21 tablet Allergies Allergy/AdvReac Type Severity Reaction Status Date / Time Bee Allergy Severe Abdominal Uncoded 07/24/21 08:35 Pain Review of Systems Constitutional: Constitutional: Reports no additional constitutional complaints, Denies chills, Denies fever(s) and Denies night sweats Eyes: Eyes: Reports no additional eye complaints, Denies blurry vision, Denies change in vision, Denies diplopia, Denies eye discharge, Denies loss of vision and Denies eye pain ENT: Denies dizziness Cardiovascular: Cardiovascular: Reports no additional cardiovascular complaints, Denies chest pain, Denies lightheadedness, Denies Loss of Consciousness and Denies dyspnea Respiratory: Respiratory: Reports no additional respiratory complaints and Denies dyspnea Gastrointestinal: Gastrointestinal: Reports no additional gastrointestinal complaints, Denies abdominal pain, Denies melena, Denies hematochezia, Denies change in bowel habits and Denies change in stool character Genitourinary: Genitourinary: Denies hematuria, Denies urinary frequency, Denies dysuria, Denies urinary incontinence, Denies urinary hesitancy and Denies urinary urgency Musculoskeletal: Musculoskeletal: Reports no additional musculoskeletal complaints, Denies numbness and Denies tingling Comments: left 5th finger swelling, pain, drainage Neurologic: Denies dizziness, Denies loss of vision, Denies numbness and Denies tingling Psychiatric: Psychiatric: Reports no additional psychiatric complaints Endocrine: Endocrine: Reports no additional endocrine complaints Hematologic/Lymphatic: Hematologic/Lymphatic: Reports no additional hematologic/lymphatic complaints Allergic/Immunologic: Allergic/Immunologic: Reports no additional allergic/immunologic complaints PMFSH Past Medical History Attestation statement: The following information was validated with the patient. Source: old records reviewed Medical History Abnormal EKG Adjustment disorder, unspecified BMI 45.0-49.9, adult COVID-19 vaccine series completed Essential hypertension GERD with esophagitis Helicobacter pylori gastritis Insomnia Morbid obesity with BMI of 40.0-44.9, adult PPD positive Preoperative cardiovascular examination Preoperative examination Rheumatoid arthritis Shortness of breath Smoker Vitamin B1 deficiency Vitamin D deficiency Surgical History History of adjustable gastric banding History of (~1996) History of colonoscopy (~05/2019) History of esophagogastroduodenoscopy (EGD) Hx of endoscopy (~07/2019) Family History Family History Father Family history of high blood pressure Mother No problems noted. Brother No problems noted. Sister No problems noted. Sister No problems noted. Sister No problems noted. Sister No problems noted. Son No problems noted. Social History Social History Are you a primary intensive care nurse to a significant other at home: No Do you presently have visiting nurse or other home services: No Alcohol intake: current Alcohol intake frequency: a few times a month Patient Tobacco Use Status: Former Tobacco user Quit Date: 01/23/2021 Tobacco use type: Cigarette Cigarette Packs Per Day: 0 Cigarettes Per Day: 2 Advance Directives: Yes Advance Directives on File: Yes Advance Directives Date on File: 01/23/21 service: No Current occupational status: employed Physical Exam Vital Signs: Vital Signs: Last Vital Signs Temp 98.4 F 01/14/22 10:17 Pulse 63 01/14/22 10:17 Resp 20 01/14/22 10:17 BP 97/61 01/14/22 10:17 Pulse Ox 99 01/14/22 10:17 O2 Del Method 01/14/22 10:17 BMI result Body Mass Index 40.3 Const: General: cooperative, no acute distress, alert and awake Nutritional Appearance: well nourished Orientation/consciousness: patient oriented x3 Limitations: no limitations HEENT: Head: Yes normal to inspection and Yes atraumatic Ears: hearing grossly normal bilaterally and external ears normal General nose exam: Normal external nose present, no nasal discharge noted and no epistaxis Face and sinus: Yes normal facial exam, No abrasion and No laceration Mouth: Normal oral and palatal mucosa present, no drooling and no muffled voice Eyes: General: appearance normal, both eyes and all related structures Periorbital: periorbital findings normal Eyelids: Yes eyelids normal Conjunctivae: conjunctivae normal Pupils: Equal, round and reactive pupils present EOM: EOMs intact bilaterally Neck: Neck: Yes normal visual inspection, Yes full ROM and Yes no lymphadenopathy Chest: Chest palpation & inspection: normal inspection of the chest Resp: Effort & Inspection: normal respiratory effort and able to speak in complete sentences Auscultation: clear to auscultation bilaterally Cardio: Rate: regular rate Rhythm: regular rhythm GI: Inspection: Yes normal to inspection Skin: Other: swollen and warm area surrounding the left 5th finger tip Neuro: General: patient oriented x3 and moves all extremities Cranial nerves: Yes Equal, round and reactive pupils present Cognition (Neuro): normal cognition Motor exam (neuro): 5/5 motor strength present throughout Sensory Exam: Normal double simultaneous stimulation for sensation Coordination: [id number]-zb-[id number] test normal Extrem: Other: significant swelling to the left 5th finger with discharge from around the base of the nail General: Yes full ROM and Yes capillary refill normal Psych: Appearance: grossly normal Mental Status: mental status grossly normal Affect: normal affect Attitude: cooperative Thought process: Normal thought process present Thought content: Normal thought content present Insight: Good insight present (Psych) MDM - Skin/Abscess/Foreign Bdy MDM Narrative Medical decision making narrative: Patient is a 61 year old female presenting to the emergency department today with a left 5th finger infection. Patient's physical exam was as noted previously in this chart with swelling and warmth to the left 5th finger. P atient's blood work was unremarkable. Patient's left hand x-ray showed extensive, aggressive-appearing, destructive, lytic changes involving the left fifth distal phalanx with associated soft tissue swelling. I explained my physical exam findings as well as all test results to the patient. I answered all questions asked by the patient. Patient received IV Zosyn and Vancomycin. Patient is not septic and was not considered to be septic throughout her entire time under my care. I spoke to Dr. Valera who agreed to admission and asked that I place the consult order to the hand surgeon to expedite the process. Consultation order was placed. Patient verbalized agreement and understanding with this treatment plan and admission to the hospital. Differential Diagnosis Differential diagnosis: Likely abscess of skin or subcutaneous tissue and cellulitis (osteomyelitis) Medical Records Attestation: I reviewed the patient's medical records. Lab Data Attestation: I reviewed the patient's lab results. Result diagrams: 01/14/22 10:25 01/14/22 10:25 Labs: Lab Results 01/14/22 01/14/22 01/14/22 Range/Units 10:25 10:25 10:25 WBC 4.2 L (4.8-10.8) X10*3/uL RBC 4.44 (4.20-5.50) X10*6/uL Hgb 13.0 (12.0-16.0) g/dl Hct 40.7 (37.0-47.0) % MCV 91.7 (80.0-98.0) fL MCH 29.3 (27.0-33.0) pg MCHC 31.9 (31.0-35.0) g/dl RDW 13.5 (11.0-16.0) % Plt Count 149 L (160-400) X10*3/uL MPV Not Reportable Immature Gran % (Auto) 0.2 (0.0-0.4) % Neut % (Auto) 33.8 L (45-73) % Lymph % (Auto) 52.6 H (20-40) % [place] % (Auto) 9.8 (2-11) % Eos % (Auto) 2.6 (0-4) % Baso % (Auto) 1.0 (0-2) % Lymph # (Auto) 2.2 (1.2-4.9) X10*3/uL [place] # (Auto) 0.4 (0.1-1.2) X10*3/uL Eos # (Auto) 0.1 (0.0-0.4) X10*3/uL Baso # (Auto) 0.0 (0.0-0.2) X10*3/uL Abs Immat Gran (auto) 0.01 (0.00-0.03) X10*3/uL Absolute Neuts (auto) 1.4 L (2.0-8.3) x10*3/uL Absolute Nucleated RBC 0.000 (0.0-0.012) X10*3/uL Nucleated RBC % (auto) 0.0 (0.0-0.2) /100WBC Smear Tech's Comments VERIFIED ESR Cancelled Sodium 137 (135-145) mmol/L Potassium 5.3 H D (3.3-5.1) mmol/L Chloride 107 (96-108) mmol/L Carbon Dioxide 22 (22-29) mmol/L Anion Gap 13 (12-20) BUN 11 (9-16) mg/dL Creatinine 0.77 (0.5-1.4) mg/dL Estim Creat Clear Calc 107.3 Estimated GFR > 60 Random Glucose 93 (60-115) mg/dL Lactic Acid (0.5-2.0) mmol/L Calcium 9.3 (8.4-10.2) mg/dL C-Reactive Protein 0.13 (< or = 0.50) mg/dL 01/14/22 Range/Units 10:59 WBC (4.8-10.8) X10*3/uL RBC (4.20-5.50) X10*6/uL Hgb (12.0-16.0) g/dl Hct (37.0-47.0) % MCV (80.0-98.0) fL MCH (27.0-33.0) pg MCHC (31.0-35.0) g/dl RDW (11.0-16.0) % Plt Count (160-400) X10*3/uL MPV Immature Gran % (Auto) (0.0-0.4) % Neut % (Auto) (45-73) % Lymph % (Auto) (20-40) % [place] % (Auto) (2-11) % Eos % (Auto) (0-4) % Baso % (Auto) (0-2) % Lymph # (Auto) (1.2-4.9) X10*3/uL [place] # (Auto) (0.1-1.2) X10*3/uL Eos # (Auto) (0.0-0.4) X10*3/uL Baso # (Auto) (0.0-0.2) X10*3/uL Abs Immat Gran (auto) (0.00-0.03) X10*3/uL Absolute Neuts (auto) (2.0-8.3) x10*3/uL Absolute Nucleated RBC (0.0-0.012) X10*3/uL Nucleated RBC % (auto) (0.0-0.2) /100WBC Smear Tech's Comments ESR Sodium (135-145) mmol/L Potassium (3.3-5.1) mmol/L Chloride (96-108) mmol/L Carbon Dioxide (22-29) mmol/L Anion Gap (12-20) BUN (9-16) mg/dL Creatinine (0.5-1.4) mg/dL Estim Creat Clear Calc Estimated GFR Random Glucose (60-115) mg/dL Lactic Acid 0.7 (0.5-2.0) mmol/L Calcium (8.4-10.2) mg/dL C-Reactive Protein (< or = 0.50) mg/dL Imaging Data Left hand x-ray: Attestation: I personally reviewed and interpreted this imaging study as follows: My impression: Osteomyelitis of the left 5th pink Radiologist's impression: EXAMINATION: XR HAND, LEFT CLINICAL INFORMATION: F0 left fifth finger.? COMPARISON: None? TECHNIQUE: PA, lateral, and oblique views of the left hand. XR/XR hand LT 2V FINDINGS/IMPRESSION: ? Examination demonstrates extensive, aggressive-appearing, destructive, lytic changes involving the left fifth distal phalanx, with associated soft tissue swelling. Differential diagnosis includes, but is not limited to, osteomyelitis, and, less likely, neoplasm, etc. Clinical correlation is recommended. ? The study is otherwise unremarkable. Dictated By: Rene Jose Signed By: Electronically signed by Rene?Damon 01/14/22 6053 Critical Care Time Critical Care Time Critical Care Time: Yes Total Critical Care Time: 30 Attestation: I spent 30 minutes of Critical Care Time with this patient. This does not include time spent on separately reported billable procedures. Discharge Plan Discharge Clinical Impression: Osteomyelitis Patient Disposition: Admitted As Inpatient Prescriptions: No Action cholecalciferol (vitamin D3) 125 mcg (5,000 unit) capsule 125 mcg PO DAILY Qty: 30 3RF thiamine HCl (vitamin B1) 100 mg tablet 100 mg PO DAILY Qty: 30 2RF sulfamethoxazole-trimethoprim 800-160 mg tablet 1 tab PO Q12H acetaminophen 650 mg tablet extended release 1 tab PO Q8H PRN (Reason: pain) omeprazole 20 mg capsule,delayed release(DR/EC) 1 cap PO DAILY mupirocin 2 % ointment topical TID turmeric 400 mg capsule 400 mg PO .qod lisinopril 10 mg tablet 10 mg PO DAILY epinephrine [EpiPen 2-Nishant] 0.3 mg/0.3 mL auto-injector 0.3 mg IM Q15M PRN (Reason: Allergic Reaction) Rx Instructions: for 2 doses zinc sulfate 50 mg zinc (220 mg) capsule 50 mg PO DAILY Bariatric Multivitamins 45 mg iron- 800 mcg-120 mcg capsule 1 cap PO DAILY Print Language: German
[2022-01-14 10:51] LABS: Platelet Count 149 X10*3/uL (160-400); SLIDE REVIEW VERIFIED; White Blood Count 4.2 X10*3/uL (4.8-10.8)
[2022-01-14 10:59] LABS: Anion Gap 13 (12-20); Blood Urea Nitrogen 11 mg/dL (9-16); Calcium 9.3 mg/dL (8.4-10.2); Carbon Dioxide 22 mmol/L (22-29); Chloride 107 mmol/L (96-108); Creatinine Clr Calc Pharmacy 107.3; Estimated Glomerular Filt Rate > 60; Glucose Random 93 mg/dL (60-115); Potassium 5.3 mmol/L (3.3-5.1); Sodium 137 mmol/L (135-145)
[2022-01-14 11:27] LABS: Lactic Acid 0.7 mmol/L (0.5-2.0)
[2022-01-14 11:30] LABS: C Reactive Protein 0.13 mg/dL (< or = 0.50)
[2022-01-14] MEDS: Piperacillin Sodium/Tazobactam 4.5 GM in 0.9 % Sodium Chloride 100 ML IV (11:42)
[2022-01-14 13:13] LABS: COVID-19 Test Negative (Negative); IDNOW Serial# 16C4AD1C
--- NOTE | 2022-01-14 13:40 | PHA.MEDREC ---
Pharmacy Consult ? Medication Reconciliation Pharmacy has completed the medication reconciliation. Patient reported all medications. There are no remarkable isseus for provider's attention. Dodie Gonzales, UliD
[2022-01-14 14:11] VITALS: BP 121/71; PULSE 60; RESP 16; O2SAT 99
[2022-01-14 15:14] VITALS: BP 131/65; PULSE 60; RESP 16; TEMP 36.6; O2SAT 98
--- NOTE | 2022-01-14 15:30 | PM.IMHP ---
History of Present Illness Date of Service: 01/14/22 Chief Complaint: finger infection 61yo F with HTN and no history of DM2 who chipped her left 5th fingernail 1 month ago. She developed a paronychia and underwent 2 separate I+D procedures at a walk-in center along with 2 rounds of oral antibiotics. However, she is developing worsening swelling, pain, discoloration, and now numbness of the left 5th finger pad. No fever, chills, dyspnea, chest pain, nasuea, or vomiting. Radiography in the ED demonstrated aggressive lytic changes involving the left 5th distal phalanx with associated soft tissue swelling. She was not septic. She was given IV vancomycin and piperacillin/tazobactam. Review of Systems Review of Systems: Yes all other systems are reviewed and are negative [facility] Medical History Abnormal EKG Adjustment disorder, unspecified BMI 45.0-49.9, adult COVID-19 vaccine series completed Essential hypertension GERD with esophagitis Helicobacter pylori gastritis Insomnia Morbid obesity with BMI of 40.0-44.9, adult PPD positive Preoperative cardiovascular examination Preoperative examination Rheumatoid arthritis Shortness of breath Smoker Vitamin B1 deficiency Vitamin D deficiency Family History Father Family history of high blood pressure Mother No problems noted. Brother No problems noted. Sister No problems noted. Sister No problems noted. Sister No problems noted. Sister No problems noted. Son No problems noted. Surgical History History of adjustable gastric banding History of (~1996) History of colonoscopy (~05/2019) History of esophagogastroduodenoscopy (EGD) Hx of endoscopy (~07/2019) Social History Are you a primary continuum of care manager to a significant other at home: No Do you presently have visiting nurse or other home services: No Alcohol intake: current Alcohol intake frequency: a few times a month Patient Tobacco Use Status: Former Tobacco user Quit Date: 01/23/2021 Tobacco use type: Cigarette Cigarette Packs Per Day: 0 Cigarettes Per Day: 2 Advance Directives: Yes Advance Directives on File: Yes Advance Directives Date on File: 01/23/21 service: No Current occupational status: employed Meds Allergies Allergy/AdvReac Type Severity Reaction Status Date / Time Bee Allergy Severe Abdominal Uncoded 07/24/21 08:35 Pain Active Medications: Current Medications Piperacillin Sod/Tazobactam (Sod 3.375 gm/ Sodium Chloride) 50 mls @ 100 mls/hr IV Q6H [facility] Lisinopril (Lisinopril 10 Mg Tablet) 10 mg PO DAILY [facility]; Protocol Non-Formulary Medication (Cholecalciferol (Vitamin D3)) 125 mcg PO DAILY [facility] Non-Formulary Medication (Jqnufyblmbke-Mrw-Zuim-Fa-Vit K [Bariatric Multivitamins]) 1 cap PO DAILY [facility] Pharmacy Consult (Consult Rx Vancomycin Dosing) 1 each MISCELLANE DAILY PRN PRN Reason: Consult order Pharmacy Consult (Consult Rx Perform Med Rec) 1 each MISCELLANE ONCE PRN PRN Reason: Consult order Pharmacy Consult (Consult Rx Vancomycin Dosing) 1 each MISCELLANE DAILY [facility] Thiamine HCl (Thiamine Hcl 100 Mg Tablet) 100 mg PO DAILY [facility] Home Medications Medication Instructions Recorded Confirmed Last Taken Type lisinopril 10 mg tablet 10 mg PO DAILY 07/25/20 01/14/22 01/14/22 History zinc sulfate 50 mg zinc (220 mg) 50 mg PO DAILY 11/08/20 01/14/22 01/14/22 History capsule turmeric 400 mg capsule 400 mg PO .qod 12/10/20 01/14/22 01/14/22 History izkefgrv-kwatxtna-xecv 45 mg-folic 1 cap PO DAILY 04/17/21 01/14/22 01/14/22 History acid 800 mcg-vit K 120 mcg capsule (Bariatric Multivitamins) acetaminophen 650 mg 1 tab PO Q8H PRN pain 01/14/22 01/14/22 Unknown History tablet,extended release mupirocin 2 % topical ointment 1 ea topical TID 01/14/22 01/14/22 01/14/22 History sulfamethoxazole 800 1 tab PO Q12H 01/14/22 01/14/22 01/13/22 History mg-trimethoprim 160 mg tablet Physical Exam Vital Signs and Narrative: Vital Signs: Last Vital Signs Temp 97.8 F 01/14/22 15:14 Pulse 60 01/14/22 15:14 Resp 16 01/14/22 15:14 BP 131/65 01/14/22 15:14 Pulse Ox 98 01/14/22 15:14 O2 Del Method 01/14/22 15:14 BMI result Body Mass Index 40.3 Gen: in no acute distress HEENT: sclera anicteric, moist mucus membranes Neck: supple Lungs: clear to auscultation bilaterally Heart: regular rate and rhythm, no murmurs Abd: soft, non-tender, non-distended, obese Ext: tense swelling, discoloration/hyperpigmentation, and numbness of the entire left 5th fingertip pad extending proximally to the middle phalanx Skin: warm/well-perfused Neuro: alert and oriented x3, no focal findings Psych: appropriate affect Results Labs CBC and Chem 7: 01/14/22 10:25 01/14/22 10:25 Labs: Laboratory Results - last 24 hr 01/14/22 01/14/22 01/14/22 10:25 10:25 10:25 MCV 91.7 MCH 29.3 MCHC 31.9 RDW 13.5 Plt Count 149 L MPV Not Reportable Immature Gran % (Auto) 0.2 Neut % (Auto) 33.8 L Lymph % (Auto) 52.6 H [place] % (Auto) 9.8 Eos % (Auto) 2.6 Baso % (Auto) 1.0 Lymph # (Auto) 2.2 [place] # (Auto) 0.4 Eos # (Auto) 0.1 Baso # (Auto) 0.0 Abs Immat Gran (auto) 0.01 Absolute Neuts (auto) 1.4 L Absolute Nucleated RBC 0.000 Nucleated RBC % (auto) 0.0 Smear Tech's Comments VERIFIED ESR Cancelled Anion Gap 13 Estim Creat Clear Calc 107.3 Estimated GFR > 60 Random Glucose 93 Lactic Acid Calcium 9.3 C-Reactive Protein 0.13 COVID-19 ([facility]) COVID-19 Clin Com 01/14/22 01/14/22 10:59 12:52 MCV MCH MCHC RDW Plt Count MPV Immature Gran % (Auto) Neut % (Auto) Lymph % (Auto) [place] % (Auto) Eos % (Auto) Baso % (Auto) Lymph # (Auto) [place] # (Auto) Eos # (Auto) Baso # (Auto) Abs Immat Gran (auto) Absolute Neuts (auto) Absolute Nucleated RBC Nucleated RBC % (auto) Smear Tech's Comments ESR Anion Gap Estim Creat Clear Calc Estimated GFR Random Glucose Lactic Acid 0.7 Calcium C-Reactive Protein COVID-19 ([facility]) Negative COVID-19 Clin Com See Note Imaging Radiologist's Impressions: Impressions Hand X-Ray 01/14/22 11:11 FINDINGS/IMPRESSION: Examination demonstrates extensive, aggressive-appearing, destructive, lytic changes involving the left fifth distal phalanx, with associated soft tissue swelling. Differential diagnosis includes, but is not limited to, osteomyelitis, and, less likely, neoplasm, etc. Clinical correlation is recommended. The study is otherwise unremarkable. Assessment and Plan (1) Finger osteomyelitis, left: Status: Acute Plan 61yo F with HTN with paronychia that has progressed to aggressive osteomyelitis of the left 5th finger despite 2 rounds of I+D and oral antibiotics # finger osteomyelitis - admit to M/S, give IV vanco + pip/jose, follow BCx, Ortho/Hand Surgery consult for operative management, NPO after midnight # HTN - lisinopril # morbid obesity - s/p lap band + sleeve gastrectomy VTE prophylaxis: SCDs code status: full I anticipate that the patient will stay at least 2 midnights in hospital due to the above reasons. It is neither reasonable nor safe to care for them in a less acute setting. Quality Stroke Does the patient have a stroke diagnosis?: No VTE Prior VTE?: No VTE Risk Level:: Medical - moderate - high VTE Device Contraindication: N/A - Device Ordered VTE Drug Contraindication: N/A - Med Ordered
--- NOTE | 2022-01-14 15:52 | PHA.PROG ---
Admission Date/Time: January 14, 2022 15:28 Indication: BONE/JOINT Weight in k.202 kg Adjusted body weight in K.421 [place] body weight in K.9 Obesity Dosing Indication % IBW: Serum Creatinine - Last 168 Hours 01/14/22 10:25 Creatinine 0.77 Estimated CrCl and GFR - Last 168 Hours 01/14/22 10:25 Estim Creat Clear Calc 107.3 Estimated GFR > 60 Vancomycin Loading Dose: 2000MG Current Vancomycin Dosing Regimen: 1000MG Q12H Vancomycin Monitoring using AUC goal of 400 - 600 range with trough as surrogate marker: AUC 499, TROUGH 14.4 Date and Time for next Vancomycin Level to be drawn: 01/15 @ 2100 Pharmacist Comments on Vancomycin Plan: Vancomycin dosing will take advantage of [employer] as a clinical decision support tool that uses Bayesian modeling to calculate individual patient's pharmacokinetic parameters and forecast the patient's drug concentration time course with the target goal AUC 24 range of 400 - 600 mg/L/hr.
[2022-01-14] MEDS: Piperacillin Sodium/Tazobactam 3.375 GM in 0.9 % Sodium Chloride 50 ML IV ×2 (18:09→22:15)
--- NOTE | 2022-01-14 18:34 | PC.NURSE ---
pt resting comfortably with family at bedside. pt awaiting pending admission for surgery on pinky finger.
[2022-01-14 20:14] VITALS: BP 114/51; PULSE 60; RESP 16; TEMP 36.6; O2SAT 98
[2022-01-14] MEDS: 0.9 % Sodium Chloride Flush 3 ML SYRINGE IVFLUSH (20:16)
[2022-01-14] MEDS: vancomycin HCL 1,000 MG in 0.9 % Sodium Chloride 250 ML 270 MG IV (22:56)
[2022-01-15] VITALS (13 sets, daily range): BP systolic 99–177; BP diastolic 43–77; PULSE 54–77; RESP 15–18; TEMP 35.8–37; O2SAT 95–100; BMI 40.3
[2022-01-15] MEDS: Piperacillin Sodium/Tazobactam 3.375 GM in 0.9 % Sodium Chloride 50 ML IV ×3 (04:46→22:31)
[2022-01-15] MEDS: 0.9 % Sodium Chloride Flush 3 ML SYRINGE IVFLUSH ×2 (04:46→23:21)
--- NOTE | 2022-01-15 05:17 | PC.NURSE ---
pt has no c/o pain or discomfort. left 5th digit has a hard leather appearance/texture to it.
--- NOTE | 2022-01-15 08:44 | PM.CNOR ---
History of Present Illness [facility] Consult date: 01/15/22 Chief complaint: Finger osteomyelitis Narrative: This is a 61-year-old female who was admitted to the medical service for osteomyelitis of the left small finger. She states about 1 month ago, her left 5th finger nail came off and it got infected. She states she developed a pustule at the base of the fingernail and her PCP drained the area, and started her on antibiotics. Patient states that was 3 weeks ago. Patient states that she was seen 2 weeks ago at Urgent care for the same area as it was still draining pus even after ABX. Patient states that she was given another dose of antibiotics , Bactrim, however, it is not improving and it is getting worse.? Orthopedics was consulted for further recommendations. Review of Systems Review of Systems: per [facility] Past Medical History Medical History Abnormal EKG Adjustment disorder, unspecified BMI 45.0-49.9, adult COVID-19 vaccine series completed Essential hypertension GERD with esophagitis Helicobacter pylori gastritis Insomnia Morbid obesity with BMI of 40.0-44.9, adult PPD positive Preoperative cardiovascular examination Preoperative examination Rheumatoid arthritis Shortness of breath Smoker Vitamin B1 deficiency Vitamin D deficiency Family History Family History Father Family history of high blood pressure Mother No problems noted. Brother No problems noted. Sister No problems noted. Sister No problems noted. Sister No problems noted. Sister No problems noted. Son No problems noted. Surgical History Surgical History History of adjustable gastric banding History of (~1996) History of colonoscopy (~05/2019) History of esophagogastroduodenoscopy (EGD) Hx of endoscopy (~07/2019) Social History Social History Are you a primary foster care therapist to a significant other at home: No Do you presently have visiting nurse or other home services: No Alcohol intake: current Alcohol intake frequency: a few times a month Patient Tobacco Use Status: Former Tobacco user Quit Date: 01/23/2021 Tobacco use type: Cigarette Cigarette Packs Per Day: 0 Cigarettes Per Day: 2 Advance Directives: Yes Advance Directives on File: Yes Advance Directives Date on File: 01/23/21 service: No Current occupational status: employed Meds Allergies Allergy/AdvReac Type Severity Reaction Status Date / Time Bee Allergy Severe Abdominal Uncoded 07/24/21 08:35 Pain Active Medications: Current Medications Acetaminophen (Acetaminophen 325 Mg Tablet) 650 mg PO Q6H PRN PRN Reason: Pain, Mild (Pain Scale 1-3) Piperacillin Sod/Tazobactam (Sod 3.375 gm/ Sodium Chloride) 50 mls @ 100 mls/hr IV Q6H [facility] Last Infusion: 01/15/22 05:17 Dose: Infused Vancomycin HCl 1,000 mg/ (Sodium Chloride) 270 mls @ 270 mls/hr IV Q12H [facility] Last Infusion: 01/15/22 00:53 Dose: Infused Lisinopril (Lisinopril 10 Mg Tablet) 10 mg PO DAILY [facility]; Protocol Morphine Sulfate (Morphine Sulfate 4 Mg/Ml Cartridge) 2 mg IVPUSH Q4H PRN; Protocol PRN Reason: Pain, Severe (Pain Scale 7-10) Multivitamins/Vitamin C (Multivitamin Tablet) 1 tab PO DAILY [facility] Oxycodone HCl (Oxycodone Hcl Immed Release 5 Mg Tablet) 5 mg PO Q6H PRN PRN Reason: pain, modearte Pharmacy Consult (Consult Rx Vancomycin Dosing) 1 each MISCELLANE DAILY PRN PRN Reason: Consult order Pharmacy Consult (Consult Rx Perform Med Rec) 1 each MISCELLANE ONCE PRN PRN Reason: Consult order Pharmacy Consult (Consult Rx Vancomycin Dosing) 1 each MISCELLANE DAILY [facility] Sodium Chloride (0.9 % Sodium Chloride Flush 3 Ml Syringe) 3 ml IVFLUSH QSHIFT [facility] Last Admin: 01/15/22 04:46 Dose: 3 ml Thiamine HCl (Thiamine Hcl 100 Mg Tablet) 100 mg PO DAILY [facility] Vitamin D (Cholecalciferol (Vitamin D3) 25 Mcg Tablet) 125 mcg PO DAILY [facility] Home Medications Medication Instructions Recorded Confirmed Last Taken Type lisinopril 10 mg tablet 10 mg PO DAILY 07/25/20 01/14/22 01/14/22 History zinc sulfate 50 mg zinc (220 mg) 50 mg PO DAILY 11/08/20 01/14/22 01/14/22 History capsule turmeric 400 mg capsule 400 mg PO .qod 05/18/21 06/22/22 06/22/22 History clsemzxt-jxvygqsp-otan 45 mg-folic 1 cap PO DAILY 04/17/21 01/14/22 01/14/22 History acid 800 mcg-vit K 120 mcg capsule (Bariatric Multivitamins) acetaminophen 650 mg 1 tab PO Q8H PRN pain 01/14/22 01/14/22 Unknown History tablet,extended release mupirocin 2 % topical ointment 1 ea topical TID 01/14/22 01/14/22 01/14/22 History sulfamethoxazole 800 1 tab PO Q12H 01/14/22 01/14/22 01/13/22 History mg-trimethoprim 160 mg tablet Physical Exam Vital Signs: Vital Signs: Last Vital Signs Temp 97.7 F 01/15/22 00:00 Pulse 63 01/15/22 00:00 Resp 18 01/15/22 00:00 BP 99/43 L 01/15/22 00:00 Pulse Ox 99 01/15/22 00:00 O2 Del Method 01/15/22 00:00 BMI result Body Mass Index 40.3 Const: General: cooperative, healthy appearing and comfortable Extrem: Other: significant swelling to the left 5th finger with discoloration. She is unable to feel light touch but feels pressure when squeezing the finger. She can fully extend and flex the finger. Results Labs Result Diagrams: 01/14/22 10:25 01/14/22 10:25 Labs: Abnormal lab results 01/14/22 01/14/22 Range/Units 10:25 10:25 WBC 4.2 L (4.8-10.8) X10*3/uL Plt Count 149 L (160-400) X10*3/uL Neut % (Auto) 33.8 L (45-73) % Lymph % (Auto) 52.6 H (20-40) % Absolute Neuts (auto) 1.4 L (2.0-8.3) x10*3/uL Potassium 5.3 H D (3.3-5.1) mmol/L H & H 01/14/22 Range/Units 10:25 Hgb 13.0 (12.0-16.0) g/dl Hct 40.7 (37.0-47.0) % All other labs normal. Diagnostic results Wrist/Hand x-ray: image reviewed (xamination demonstrates extensive, aggressive-appearing, destructive, lytic changes involving the left fifth distal phalanx, with associated soft tissue swelling. Differential diagnosis includes, but is not limited to, osteomyelitis, and, less likely, neoplasm, etc. Clinical correlation is recommend) Assessment and Plan (1) Finger osteomyelitis, left: Status: Acute Plan I discussed the case with Dr. Serra. I discussed the extent of the injury to the patient and options available. Given the extent of the infection and invasion to the bone, it is recommended that we bring her to the OR for surgical intervention. I explained to the patient the procedure in detail along with the risks benefits and alternatives. Risks including but not limited to ongoing infection to skin and bone, wound breakdown, stiffness, on going pain and need for future surgeries. She does understand all this and would like to proceed with irrigation and debridement with possible amputation of the left small fingerwith Dr. Serra. She will be booked accordingly. Procedures Date of Service Date of Service: 01/15/22
[2022-01-15 08:48] LABS: Anion Gap 11 (12-20); Blood Urea Nitrogen 13 mg/dL (9-16); Calcium 8.6 mg/dL (8.4-10.2); Carbon Dioxide 29 mmol/L (22-29); Chloride 105 mmol/L (96-108); Creatinine Clr Calc Pharmacy 103.3; Estimated Glomerular Filt Rate > 60; Glucose Random 92 mg/dL (60-115); Potassium 4.8 mmol/L (3.3-5.1); Sodium 140 mmol/L (135-145)
[2022-01-15 09:16] LABS: Erythrocyte Sedimentation Rate 20 MM/HR (0-20)
--- NOTE | 2022-01-15 09:26 | HE.PHANOTE ---
Vancomycin Dosing Addendum Patient is currently on 1000mg Q12. Loading dose of 2grams on 01/14/22. Patient is obese, dosing based off ideal body weight of 63.5kg. Dose is at 15mg/kg. Continue current regimen. Random level for 01/15 @2100, will wait for level then reassess. Predicted AUC 517 mg/L/hr
--- NOTE | 2022-01-15 11:06 | MHC.SHP ---
Pre-Procedural Eval Section A Date of Service: 01/15/22 The patient is an INPATIENT: Yes Changes since office visit: No Cold of Flu in the past 2 weeks, No New Medical Problems, No Changes in Medication and No Patient answered all questions The History & Physical has been completed within 30 days and I have reviewed it.: Yes Section B Chief Complaint: Finger osteomyelitis and necrosis Allergies: Allergies Allergy/AdvReac Type Severity Reaction Status Date / Time Bee Allergy Severe Abdominal Uncoded 07/24/21 08:35 Pain Exam Exam Comment: the patient was seen in preop hold. Her left small finger skin was black and hardened over the distal phalanx. She had skin that was pink and more clearly viable over the proximal phalanx and then across the middle phalanx the skin is somewhat more questionable as to viability. She has no sensation to the distal phalanx aspect of the finger. She can actively flex and extend at the MCP and the PIP joints. Mild hand swelling proximal to the PIP joint. radiograph showed osteomyelitis of the distal phalanx. Plan I have reviewed the history and physical and performed a pertinent physical examination on my patient. No changes have occurred unless specified. assessment and plan: 1. Left small finger distal phalanx chronic osteomyelitis with necrosis of the distal portion of the small finger. I educated the patient about this condition I am recommending operative treatment. I explained to the patient that her finger requires a partial amputation likely through about the middle phalanx level to allow for viable tissues for closure. She I did explain that the viability of the tissues in the middle phalanx level is somewhat questionable, but we both agreed we would like to try to preserve length where possible. 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 The risks and benefits of operative treatment were discussed with the patient and the patient wishes to proceed with surgery. These risks include, but are not limited to risk of damage to blood vessels, nerves, tendons, infection, recurrence, incomplete relief of preoperative symptoms, persistent pain, possible need for further surgery and the risks associated with regional blocks and anesthesia. The plan is to take the patient to the operating room Today for the following procedures: 1. left small finger I and D 2. left small finger partial amputation All of the preoperative paperwork including the consent was filled out today. All the patient's questions were answered.
--- NOTE | 2022-01-15 11:10 | P.OP_ITS ---
Operative Note Operative Note Date of Service: 01/15/22 Narrative: Operative Note Narrative: Preop diagnosis: 1. Left small finger distal phalanx osteomyelitis, chronic 2. Left small finger necrosis largely involving the distal and middle phalanx levels. Postop diagnosis: Same Procedure: 1. Left small finger partial amputation , through the middle phalanx 2. Left small finger I and D 3. ulnar nerve block Surgeon: Lisa Serra MD Anesthesia: General Anesthesia Findings: necrosis of the skin and soft tissues over the distal phalanx with poor vascularity of the skin over the distal part of the middle phalanx. Good bleeding through soft tissues at the amputation level. Implants: none Tourniquet time: Ten minutes EBL: 5.0 ml Specimen: distal aspect of left small finger, plus cultures Drains: None Complications: None Disposition: Brought to the recovery room in stable condition Plan: admit back to floor to continue IV antibiotics. She should follow up with me early next week, likely Wednesday for wound check Indications: The patient is a 61 year old woman with a chronic left small finger distal phalanx osteomyelitis and necrosis of the tissues of the small finger, particularly over the distal and To a lesser extent themiddle phalanxes. . The risks and benefits of operative treatment, including but not limited to risk of damage to blood vessels, nerves, tendons, infection, recurrence, persistent pain or numbness, incomplete resolution of preoperative symptoms, or need for further surgery were discussed with the patient and they wished to proceed with surgery. Procedure: Once consent was obtained patient was brought back to the operating suite and placed in the operating table in a supine position. . Perioperative antibiotics and anesthesia was administered by the anesthesia team. A sav rniquet was applied to the proximal aspect of the left upper extremity and the limb was prepped and draped in a standard surgical fashion. The limb was elevated exsanguinated at the forearm level with Esmarch bandage and the tourniquet inflated to 250 mm of mercury for a total tourniquet time of 10 minutes. After further evaluating the small finger for soft tissue viability,A fish mouth type incision was made over the middle phalanx level of the left small finger. This was carried down to bone using a 15. Blade. A bone biter was used to cut the middle phalanx at our amputation site. The distal aspect of the small finger was then amputated and placed on the back table to be sent for pathologic evaluation. Cultures of the tissues were also taken. There was no gross purulence found at this level. The bone was shortened a small amount more using a bone biter to allow for closure of the soft tissues. Neurectomies were performed. The wound was copiously irrigated with normal saline and debrided of any nonviable appearing tissue. At this point the tourniquet was deflated and hemostasis obtained with a brief period of local pressure. she had good bleeding of the skin and soft tissues at the amputation site. The dorsal skin was perhaps a little less vigorous but I still think it will be satisfactory.. The wound was copiously irrigated with normal saline. The skin edges were reapproximated with 4-0 nylon suture. An ulnar nerve block was performed by infiltrating about the ulnar nerve at the wrist with with some 1% lidocaine with epinephrine for postop pain control and a sterile dressing was applied. The patient appears to have tolerated the procedure well and with no complications.
--- NOTE | 2022-01-15 11:10 | HO.PM.IMPN ---
Subjective Subjective Date of Service: 01/15/22 Interval History: pain controlled no fever to OR today Review of Systems Review of Systems: Yes all other systems are reviewed and are negative Physical Exam Vital Signs: Vital Signs: Last Vital Signs Temp 96.5 F L 01/15/22 10:07 Pulse 54 01/15/22 10:07 Resp 18 01/15/22 10:07 BP 122/65 01/15/22 10:07 Pulse Ox 100 01/15/22 10:07 O2 Del Method 01/15/22 10:07 BMI result Body Mass Index 40.3 Gen: in no acute distress HEENT: sclera anicteric, moist mucus membranes Neck: supple Lungs: clear to auscultation bilaterally Heart: regular rate and rhythm, no murmurs Abd: soft, non-tender, non-distended, obese Ext: tense swelling, discoloration/hyperpigmentation, and numbness of the entire left 5th fingertip pad extending proximally to the middle phalanx Skin: warm/well-perfused Neuro: alert and oriented x3, no focal findings Psych: appropriate affect Objective Data Active Medications Acetaminophen (Acetaminophen 325 Mg Tablet) 650 mg PO Q6H PRN PRN Reason: Pain, Mild (Pain Scale 1-3) Piperacillin Sod/Tazobactam (Sod 3.375 gm/ Sodium Chloride) 50 mls @ 100 mls/hr IV Q6H [facility] Last Infusion: 01/15/22 05:17 Dose: 0 mls/hr Documented By: KIRK Vancomycin HCl 1,000 mg/ (Sodium Chloride) 270 mls @ 270 mls/hr IV Q12H [facility] Last Infusion: 01/15/22 00:53 Dose: 0 mls/hr Documented By: KEVYN Lisinopril (Lisinopril 10 Mg Tablet) 10 mg PO DAILY [facility]; Protocol Last Admin: 01/15/22 10:51 Dose: Not Given Documented By: BILLIE Non-Admin Reason: surgery Morphine Sulfate (Morphine Sulfate 4 Mg/Ml Cartridge) 2 mg IVPUSH Q4H PRN; Protocol PRN Reason: Pain, Severe (Pain Scale 7-10) Multivitamins/Vitamin C (Multivitamin Tablet) 1 tab PO DAILY [facility] Last Admin: 01/15/22 10:51 Dose: Not Given Documented By: BILLIE Non-Admin Reason: surgery\ Oxycodone HCl (Oxycodone Hcl Immed Release 5 Mg Tablet) 5 mg PO Q6H PRN PRN Reason: pain, modearte Pharmacy Consult (Consult Rx Vancomycin Dosing) 1 each MISCELLANE DAILY PRN PRN Reason: Consult order Pharmacy Consult (Consult Rx Perform Med Rec) 1 each MISCELLANE ONCE PRN PRN Reason: Consult order Pharmacy Consult (Consult Rx Vancomycin Dosing) 1 each MISCELLANE DAILY [facility] Sodium Chloride (0.9 % Sodium Chloride Flush 3 Ml Syringe) 3 ml IVFLUSH QSHIFT [facility] Last Admin: 01/15/22 09:16 Dose: Not Given Documented By: BILLIE Non-Admin Reason: Previously Administered Thiamine HCl (Thiamine Hcl 100 Mg Tablet) 100 mg PO DAILY [facility] Last Admin: 01/15/22 10:51 Dose: Not Given Documented By: BILLIE Non-Admin Reason: surgery Vitamin D (Cholecalciferol (Vitamin D3) 25 Mcg Tablet) 125 mcg PO DAILY [facility] Last Admin: 01/15/22 10:51 Dose: Not Given Documented By: BILLIE Non-Admin Reason: surgery Labs CBC & Chem 7: 01/14/22 10:25 01/15/22 08:20 Labs: Laboratory Results - last 24 hr 01/14/22 01/14/22 01/14/22 10:25 10:25 10:25 Smear Tech's Comments VERIFIED ESR Cancelled Anion Gap Estim Creat Clear Calc Estimated GFR Random Glucose Lactic Acid Calcium C-Reactive Protein 0.13 COVID-19 ([facility]) COVID-19 Clin Com 01/14/22 01/14/22 01/15/22 10:59 12:52 08:20 Smear Tech's Comments ESR Anion Gap Estim Creat Clear Calc Cancelled Estimated GFR Cancelled Random Glucose Lactic Acid 0.7 Calcium C-Reactive Protein COVID-19 ([facility]) Negative COVID-19 Clin Com See Note 01/15/22 01/15/22 08:20 08:20 Smear Tech's Comments ESR 20 Anion Gap 11 L Estim Creat Clear Calc 103.3 Estimated GFR > 60 Random Glucose 92 Lactic Acid Calcium 8.6 D C-Reactive Protein COVID-19 ([facility]) COVID-19 Clin Com Assessment and Plan (1) Finger osteomyelitis, left: Status: Acute Plan hospital d#2 61yo F with HTN with paronychia that has progressed to aggressive osteomyelitis of the left 5th finger despite 2 rounds of I+D and oral antibiotics # finger osteomyelitis - to O+R for I+D and possible amputation today - d#2 IV vanco + pip/jose, follow BCx # HTN - lisinopril # morbid obesity - s/p lap band + sleeve gastrectomy VTE prophylaxis: SCDs In my clinical judgment, the patient requires continued hospitalization for the following reasons: operative intervention, postoperative care, IV ABX Quality Stroke Does the patient have a stroke diagnosis?: No VTE Prior VTE?: No VTE Risk Level:: Medical - moderate - high VTE Device Contraindication: N/A - Device Ordered VTE Drug Contraindication: N/A - Med Ordered
--- NOTE | 2022-01-15 13:19 | HO.ANESPROP2 ---
HPI - Anesthesia Eval Consult details Narrative: 61 F for finger amp PMFSH Active Problems Active Problems: All Active Problems (Updated 01/14/22 @ 15:35 by Jennifer Valera MD) Finger osteomyelitis, left (Acute) Osteomyelitis (Acute) S/P laparoscopic sleeve gastrectomy (Acute) History of repair of hiatal hernia (Acute) History of removal of laparoscopic gastric banding device (Acute) Gastric band slippage (Acute) Hypertension (Acute) Morbid obesity (Acute) Past Medical History Medical History Abnormal EKG Adjustment disorder, unspecified BMI 45.0-49.9, adult COVID-19 vaccine series completed Essential hypertension GERD with esophagitis Helicobacter pylori gastritis Insomnia Morbid obesity with BMI of 40.0-44.9, adult PPD positive Preoperative cardiovascular examination Preoperative examination Rheumatoid arthritis Shortness of breath Smoker Vitamin B1 deficiency Vitamin D deficiency Family History Family History Father Family history of high blood pressure Mother No problems noted. Brother No problems noted. Sister No problems noted. Sister No problems noted. Sister No problems noted. Sister No problems noted. Son No problems noted. Family history of problems with anesthesia: No Surgical History Surgical History History of adjustable gastric banding History of (~1996) History of colonoscopy (~05/2019) History of esophagogastroduodenoscopy (EGD) Hx of endoscopy (~07/2019) History of Problems with Anesthesia: No Social History Social History Are you a primary pediatric acute care unit nurse to a significant other at home: No Do you presently have visiting nurse or other home services: No Alcohol intake: current Alcohol intake frequency: a few times a month Patient Tobacco Use Status: Former Tobacco user Quit Date: 01/23/2021 Tobacco use type: Cigarette Cigarette Packs Per Day: 0 Cigarettes Per Day: 2 Advance Directives Date on File: 01/23/21 service: No Current occupational status: employed Meds Allergies Allergy/AdvReac Type Severity Reaction Status Date / Time Bee Allergy Severe Abdominal Uncoded 07/24/21 08:35 Pain Active Medications: Current Medications Acetaminophen (Acetaminophen 325 Mg Tablet) 650 mg PO Q6H PRN PRN Reason: Pain, Mild (Pain Scale 1-3) Piperacillin Sod/Tazobactam (Sod 3.375 gm/ Sodium Chloride) 50 mls @ 100 mls/hr IV Q6H [facility] Last Infusion: 01/15/22 05:17 Dose: Infused Vancomycin HCl 1,000 mg/ (Sodium Chloride) 270 mls @ 270 mls/hr IV Q12H [facility] Last Infusion: 01/15/22 00:53 Dose: Infused Lisinopril (Lisinopril 10 Mg Tablet) 10 mg PO DAILY [facility]; Protocol Last Admin: 01/15/22 10:51 Dose: Not Given Morphine Sulfate (Morphine Sulfate 4 Mg/Ml Cartridge) 2 mg IVPUSH Q4H PRN; Protocol PRN Reason: Pain, Severe (Pain Scale 7-10) Multivitamins/Vitamin C (Multivitamin Tablet) 1 tab PO DAILY [facility] Last Admin: 01/15/22 10:51 Dose: Not Given Oxycodone HCl (Oxycodone Hcl Immed Release 5 Mg Tablet) 5 mg PO Q6H PRN PRN Reason: pain, modearte Pharmacy Consult (Consult Rx Vancomycin Dosing) 1 each MISCELLANE DAILY PRN PRN Reason: Consult order Pharmacy Consult (Consult Rx Perform Med Rec) 1 each MISCELLANE ONCE PRN PRN Reason: Consult order Pharmacy Consult (Consult Rx Vancomycin Dosing) 1 each MISCELLANE DAILY [facility] Sodium Chloride (0.9 % Sodium Chloride Flush 3 Ml Syringe) 3 ml IVFLUSH QSHIFT [facility] Last Admin: 01/15/22 09:16 Dose: Not Given Thiamine HCl (Thiamine Hcl 100 Mg Tablet) 100 mg PO DAILY [facility] Last Admin: 01/15/22 10:51 Dose: Not Given Vitamin D (Cholecalciferol (Vitamin D3) 25 Mcg Tablet) 125 mcg PO DAILY [facility] Last Admin: 01/15/22 10:51 Dose: Not Given Home Medications Medication Instructions Recorded Confirmed Last Taken Type lisinopril 10 mg tablet 10 mg PO DAILY 07/25/20 01/14/22 01/14/22 History zinc sulfate 50 mg zinc (220 mg) 50 mg PO DAILY 11/08/20 01/14/22 01/14/22 History capsule turmeric 400 mg capsule 400 mg PO .qod 12/10/20 01/14/22 01/14/22 History aoccpmhx-dmliirwo-osys 45 mg-folic 1 cap PO DAILY 04/17/21 01/14/22 01/14/22 History acid 800 mcg-vit K 120 mcg capsule (Bariatric Multivitamins) acetaminophen 650 mg 1 tab PO Q8H PRN pain 01/14/22 01/14/22 Unknown History tablet,extended release mupirocin 2 % topical ointment 1 ea topical TID 01/14/22 01/14/22 01/14/22 History sulfamethoxazole 800 1 tab PO Q12H 01/14/22 01/14/22 01/13/22 History mg-trimethoprim 160 mg tablet Exam Exam Date and Time: January 15, 2022 1319 Height,Weight and Vital Signs: Height 5 ft 8 in Weight 265 lb Last Vital Signs Temp 96.5 F L 01/15/22 10:07 Pulse 54 01/15/22 10:07 Resp 18 01/15/22 10:07 BP 122/65 01/15/22 10:07 Pulse Ox 100 01/15/22 10:07 O2 Del Method 01/15/22 10:07 Pertinent Lab Results Pertinent Lab Results: Laboratory Tests 01/14/22 01/14/22 01/14/22 10:25 10:25 10:25 WBC 4.2 L RBC 4.44 Hgb 13.0 Hct 40.7 MCV 91.7 MCH 29.3 MCHC 31.9 RDW 13.5 Plt Count 149 L MPV Not Reportable Immature Gran % (Auto) 0.2 Neut % (Auto) 33.8 L Lymph % (Auto) 52.6 H [place] % (Auto) 9.8 Eos % (Auto) 2.6 Baso % (Auto) 1.0 Lymph # (Auto) 2.2 [place] # (Auto) 0.4 Eos # (Auto) 0.1 Baso # (Auto) 0.0 Abs Immat Gran (auto) 0.01 Absolute Neuts (auto) 1.4 L Absolute Nucleated RBC 0.000 Nucleated RBC % (auto) 0.0 Smear Tech's Comments VERIFIED ESR Cancelled Sodium 137 Potassium 5.3 H D Chloride 107 Carbon Dioxide 22 Anion Gap 13 BUN 11 Creatinine 0.77 Estim Creat Clear Calc 107.3 Estimated GFR > 60 Random Glucose 93 Lactic Acid Calcium 9.3 C-Reactive Protein 0.13 COVID-19 ([facility]) COVID-19 [employer] Com 01/14/22 01/14/22 01/15/22 10:59 12:52 08:20 WBC RBC Hgb Hct MCV MCH MCHC RDW Plt Count MPV Immature Gran % (Auto) Neut % (Auto) Lymph % (Auto) [place] % (Auto) Eos % (Auto) Baso % (Auto) Lymph # (Auto) [place] # (Auto) Eos # (Auto) Baso # (Auto) Abs Immat Gran (auto) Absolute Neuts (auto) Absolute Nucleated RBC Nucleated RBC % (auto) Smear Tech's Comments ESR Sodium Potassium Chloride Carbon Dioxide Anion Gap BUN Creatinine Cancelled Estim Creat Clear Calc Cancelled Estimated GFR Cancelled Random Glucose Lactic Acid 0.7 Calcium C-Reactive Protein COVID-19 ([facility]) Negative COVID-19 [place] See Note 01/15/22 01/15/22 08:20 08:20 WBC RBC Hgb Hct MCV MCH MCHC RDW Plt Count MPV Immature Gran % (Auto) Neut % (Auto) Lymph % (Auto) [place] % (Auto) Eos % (Auto) Baso % (Auto) Lymph # (Auto) [place] # (Auto) Eos # (Auto) Baso # (Auto) Abs Immat Gran (auto) Absolute Neuts (auto) Absolute Nucleated RBC Nucleated RBC % (auto) Smear Tech's Comments ESR 20 Sodium 140 Potassium 4.8 Chloride 105 Carbon Dioxide 29 Anion Gap 11 L BUN 13 Creatinine 0.80 Estim Creat Clear Calc 103.3 Estimated GFR > 60 Random Glucose 92 Lactic Acid Calcium 8.6 D C-Reactive Protein COVID-19 ([facility]) COVID-19 [place] Airway Mallampati Class: II TM Dist: >3cm Neck ROM: Full Loose/Missing/Broken Teeth: Yes Assessment and Plan Assessment Anesthesia Assessment: Anesthesia Plan Discussed Final Anesthetic Review Family History of Problems with Anesthesia: No History of Problems with Anesthesia: No NPO: Yes ASA Class: III Final Preanesthetic Review: No Changes in Pt Med Stat, Meds/Allgs Chart Reviewed, Consent Obtained/Reviewed and Anes Risks/Benef Reviewed Patient Risk: Intermediate Procedure Risk: Low Anesthetic Plan Anesthetic Plan: GA Disposition: Standard PACU
[2022-01-15] MEDS: vancomycin HCL 1,000 MG in 0.9 % Sodium Chloride 250 ML 270 MG IV (13:23)
[2022-01-15] MEDS: Acetaminophen 325 MG TABLET 650 MG PO (18:31)
[2022-01-15 21:47] LABS: Vancomycin Random 13.1 mcg/mL (15-20)
--- NOTE | 2022-01-15 23:02 | HE.PHANOTE ---
VANCOMYCIN ADDENDUM: LEVEL CAME BACK AT 13.1 AFTER 3 DOSES, INCREASED TO 1500 MG Q 12 HOURS FOR OSTEOMYELITIS, ORDERED REPEAT DOSE AFTER 2 MORE DOSES TO CHECK FOR TOXICITY
[2022-01-15] MEDS: oxyCODONE HCl Immed Release 5 MG TABLET PO (23:16)
[2022-01-15] MEDS: vancomycin HCL 1,500 MG in 0.9 % Sodium Chloride 500 ML 333.33 MG IV (23:19)
[2022-01-16 03:52] VITALS: BP 115/60; PULSE 66; RESP 17; TEMP 36.4; O2SAT 97
[2022-01-16] MEDS: Piperacillin Sodium/Tazobactam 3.375 GM in 0.9 % Sodium Chloride 50 ML IV ×2 (05:40→10:37)
[2022-01-16 08:00] VITALS: BP 106/48; PULSE 55; RESP 18; TEMP 36.8; O2SAT 100
[2022-01-16] MEDS: 0.9 % Sodium Chloride Flush 3 ML SYRINGE IVFLUSH (08:28)
[2022-01-16] MEDS: Thiamine HCL 100 MG TABLET PO (08:28)
[2022-01-16] MEDS: Acetaminophen 325 MG TABLET 650 MG PO (08:28)
[2022-01-16] MEDS: Multivitamin TABLET 1 TAB PO (08:28)
[2022-01-16] MEDS: Cholecalciferol (Vitamin D3) 25 MCG TABLET 125 MCG PO (08:29)
[2022-01-16] MEDS: lisinopriL 10 MG TABLET PO (08:30)
[2022-01-16] MEDS: oxyCODONE HCl Immed Release 5 MG TABLET PO (08:31)
--- NOTE | 2022-01-16 10:18 | HO.POSTANES ---
Post Anesthesia Evaluation Post Anesthesia Evaluation Vital Signs: Vital Signs Temp Pulse Resp BP Pulse Ox O2 Del Method O2 Flow Rate 01/16/22 08:00 98.2 F 55 18 106/48 L 100 Room Air 01/16/22 03:52 97.5 F 66 17 115/60 97 Nasal Cannula 4 01/15/22 23:42 97.5 F 77 17 106/52 L 98 Room Air Anesthesia: General LMA Mental Status: Awake Pain Control: Satisfactory Nausea/Vomiting: None Hydration: Adequate Anesthesia-Related Issues: No Anes. Related Issues
[2022-01-16] MEDS: vancomycin HCL 1,500 MG in 0.9 % Sodium Chloride 500 ML 333.33 MG IV (11:05)
--- NOTE | 2022-01-16 11:18 | P.DS_ITS ---
DS: Providers Provider Date of Service: 01/16/22 Date of admission: 01/14/22 15:28 Date of discharge: 01/16/22 Primary care physician: Robert Torres MD Consults: 01/14/22 12:30 Consult to Orthopedics Stat Consulting Provider[place] [facility] Reason for consultation: osteo of hand- ?marco vo 01/16/22 08:15 Consult to Infectious Diseases Routine Consulting Provider: Brandee Rizzo Reason for consultation: figner osteomyelitis s/p amuptation DS: Diagnosis Discharge Diagnosis (1) Finger osteomyelitis, left: Status: Acute DS: Summary Hospital Course Hospital Course: from my admission H+P, 01/14/22: 61yo F with HTN and no history of DM2 who chipped her left 5th fingernail 1 month ago.? She developed a paronychia and underwent 2 separate I+D procedures at a walk-in center along with 2 rounds of? oral antibiotics.? However, she is developing worsening swelling, pain, discoloration, and now numbness of the left 5th finger pad.? No fever, chills, dyspnea, chest pain, nasuea, or vomiting. Radiography in the ED demonstrated aggressive lytic changes involving the left 5th distal phalanx with associated soft tissue swelling. ? She was not septic.? She was given IV vancomycin and piperacillin/tazobactam. She was admitted to the hospitalist service on IV vancomycin and piperacillin- tazobactam. Orthopedics/Hand Surgery was consulted. Dr Lisa Vo took her to the OR. She underwent incision and drainage of the left 5th finger. There was extensive necrosis involving the dsital and middle phalanx. The left 5th finger was partially amputated through the middle phalanx. Postoperatively, she was discharged on 2 weeks of doxycycline plus amoxicillin-clavaulanate. She should follow-up with Primary Care and Orthopedics in 1 week. Time Spent with Patient Time attestation: Total time spent providing and/or coordinating discharge services: Discharge coordination time: Greater than 30 minutes Quality: Safe Use of Opioids Does Pt have an Active Cancer Diagnosis on the Problem List?: No Quality: Stroke Does the patient have a stroke diagnosis?: No Physical Exam Vital Signs: Vital Signs: Last Vital Signs Temp 98.2 F 01/16/22 08:00 Pulse 55 01/16/22 08:00 Resp 18 01/16/22 08:00 BP 106/48 L 01/16/22 08:00 Pulse Ox 100 01/16/22 08:00 O2 Del Method 01/16/22 08:00 O2 Flow Rate 4 01/16/22 03:52 BMI result Body Mass Index 40.3 Gen: in no acute distress HEENT: sclera anicteric, moist mucus membranes Neck: supple Lungs: clear to auscultation bilaterally Heart: regular rate and rhythm, no murmurs Abd: soft, non-tender, non-distended Ext: no edema, L 5th finger stump with sutures clean/dry/infact Skin: warm/well-perfused Neuro: alert and oriented x3, no focal findings Psych: appropriate affect DS: Data Data Completed and Pending Completed studies during hospitalization [Text1]: Laboratory Results WBC 4.2 X10*3/uL (4.8-10.8) L 01/14/22 10:25 RBC 4.44 X10*6/uL (4.20-5.50) 01/14/22 10:25 Hgb 13.0 g/dl (12.0-16.0) 01/14/22 10:25 Hct 40.7 % (37.0-47.0) 01/14/22 10:25 MCV 91.7 fL (80.0-98.0) 01/14/22 10:25 MCH 29.3 pg (27.0-33.0) 01/14/22 10:25 MCHC 31.9 g/dl (31.0-35.0) 01/14/22 10:25 RDW 13.5 % (11.0-16.0) 01/14/22 10:25 Plt Count 149 X10*3/uL (160-400) L 01/14/22 10:25 MPV Not Reportable 01/14/22 10:25 Immature Gran % (Auto) 0.2 % (0.0-0.4) 01/14/22 10:25 Neut % (Auto) 33.8 % (45-73) L 01/14/22 10:25 Lymph % (Auto) 52.6 % (20-40) H 01/14/22 10:25 [place] % (Auto) 9.8 % (2-11) 01/14/22 10:25 Eos % (Auto) 2.6 % (0-4) 01/14/22 10:25 Baso % (Auto) 1.0 % (0-2) 01/14/22 10:25 Lymph # (Auto) 2.2 X10*3/uL (1.2-4.9) 01/14/22 10:25 [place] # (Auto) 0.4 X10*3/uL (0.1-1.2) 01/14/22 10:25 Eos # (Auto) 0.1 X10*3/uL (0.0-0.4) 01/14/22 10:25 Baso # (Auto) 0.0 X10*3/uL (0.0-0.2) 01/14/22 10:25 Abs Immat Gran (auto) 0.01 X10*3/uL (0.00-0.03) 01/14/22 10:25 Absolute Neuts (auto) 1.4 x10*3/uL (2.0-8.3) L 01/14/22 10:25 Absolute Nucleated RBC 0.000 X10*3/uL (0.0-0.012) 01/14/22 10:25 Nucleated RBC % (auto) 0.0 /100WBC (0.0-0.2) 01/14/22 10:25 Smear Tech's Comments VERIFIED 01/14/22 10:25 ESR 20 MM/HR (0-20) 01/15/22 08:20 Sodium 140 mmol/L (135-145) 01/15/22 08:20 Potassium 4.8 mmol/L (3.3-5.1) 01/15/22 08:20 Chloride 105 mmol/L (96-108) 01/15/22 08:20 Carbon Dioxide 29 mmol/L (22-29) 01/15/22 08:20 Anion Gap 11 (12-20) L 01/15/22 08:20 BUN 13 mg/dL (9-16) 01/15/22 08:20 Creatinine 0.80 mg/dL (0.5-1.4) 01/15/22 08:20 Creatinine Cancelled 01/15/22 08:20 Estim Creat Clear Calc 103.3 01/15/22 08:20 Estim Creat Clear Calc Cancelled 01/15/22 08:20 Estimated GFR > 60 01/15/22 08:20 Estimated GFR Cancelled 01/15/22 08:20 Random Glucose 92 mg/dL (60-115) 01/15/22 08:20 Lactic Acid 0.7 mmol/L (0.5-2.0) 01/14/22 10:59 Calcium 8.6 mg/dL (8.4-10.2) D 01/15/22 08:20 C-Reactive Protein 0.13 mg/dL (< or = 0.50) 01/14/22 10:25 Random Vancomycin 13.1 mcg/mL (15-20) L 01/15/22 21:20 COVID-19 ([facility]) Negative (Negative) 01/14/22 12:52 COVID-19 Clin Com See Note 01/14/22 12:52 Impressions Hand X-Ray 01/14/22 11:11 FINDINGS/IMPRESSION: Examination demonstrates extensive, aggressive-appearing, destructive, lytic changes involving the left fifth distal phalanx, with associated soft tissue swelling. Differential diagnosis includes, but is not limited to, osteomyelitis, and, less likely, neoplasm, etc. Clinical correlation is recommended. The study is otherwise unremarkable. Pending studies at discharge: Pending at discharge 01/15/22 13:58 Surgical [PTH] Routine Labs on day of discharge: Laboratory Results - last 24 hr 01/15/22 21:20 Random Vancomycin 13.1 L Preliminary micro results at discharge 01/15/22 Unknown Routine Culture - Preliminary Finger Left Little No growth to date. 01/14/22 11:44 Blood Culture - Preliminary Blood - Venous No growth after 24 hours. 01/14/22 10:59 Blood Culture - Preliminary Blood - Venous No growth after 24 hours. Discharge Plan Discharge Patient Disposition: Home, Self-Care Discharge Diagnosis: left 5th fingertip osteomyelitis Referrals: Robert Torres MD [Primary Care Provider] - 1 Week Lisa Vo MD [Physician] - 1 Week Discharge Medications: New doxycycline monohydrate 100 mg tablet 100 mg PO BID Qty: 28 0RF amoxicillin-pot clavulanate 875-125 mg tablet 1 tab PO BID Qty: 28 0RF Continued cholecalciferol (vitamin D3) 125 mcg (5,000 unit) capsule 125 mcg PO DAILY Qty: 30 3RF thiamine HCl (vitamin B1) 100 mg tablet 100 mg PO DAILY Qty: 30 2RF acetaminophen 650 mg tablet extended release 1 tab PO Q8H PRN (Reason: pain) mupirocin 2 % ointment 1 ea topical TID turmeric 400 mg capsule 400 mg PO .qod lisinopril 10 mg tablet 10 mg PO DAILY zinc sulfate 50 mg zinc (220 mg) capsule 50 mg PO DAILY Bariatric Multivitamins 45 mg iron- 800 mcg-120 mcg capsule 1 cap PO DAILY Discontinued sulfamethoxazole-trimethoprim 800-160 mg tablet 1 tab PO Q12H Discharge Orders: Discharge Order (Routine); Ordered 01/16/22 Ordered By: Jennifer Valera Diet: advance to usual diet and low salt diet Activity on Discharge: As tolerated Stand Alone Forms: Patient Portal Discharge page Print Language: Citizen Of [place] Care Plan Goals: recovery from fingertip infection Health Concerns: left 5th fingertip osteomyelitis Plan of Treatment: antibiotics for 2 weeks: doxycycline 100 mg twice daily amoxicillin-clavulanate 875-125 mg twice daily follow up with your primary care doctor, Robert Morgan, in 1 week follow up with [facility] [Hand Surgery] in 1 week for wound check: [phone] [place] [address] , [address], [place] [address] Daily dressing changes. It?s important that it?s not too tight around the small finger, as the digit was already compromised. Assessment: See Discharge Summary
--- NOTE | 2022-01-16 11:31 | MHC.CM.PN ---
Pt reports she lives alone and is independent with all care needs. Doesn't receive any home assistance. She does not use DME. Covid vaccinated x3 (pfizer) and 1 (moderna) HCP on file and verified PCP on file, Robert Torres She reports has transportation home. Discharge plan: Home without services
--- NOTE | 2022-01-16 11:41 | MHC.CM.PN ---
Pt discharged home without services/Self-Care
[2022-01-16 12:00] VITALS: BP 127/60; PULSE 55; RESP 18; TEMP 36.2; O2SAT 99
[2022-01-16 13:57] VITALS: O2SAT 98
== END 2022-01-16 14:52 | disposition home or self-care (01) | DRG 316 ==
LOC: HO.ED 13:16 → HO.EDOVER 15:33 → HO.S3 01-15 13:23
PROVIDERS: Orthopaedic Surgery; Physician Assistant Medical; Admitting Provider Family Medicine; Emergency Provider Emergency Medicine; PCP Internal Medicine; Visit Provider Family Medicine
DX: M86.9 Osteomyelitis, unspecified (principal); E66.01 Morbid (severe) obesity due to excess calories; I10 Essential (primary) hypertension; K21.9 Gastro-esophageal reflux disease without esophagitis; Z20.822 Contact with and (suspected) exposure to COVID-19; Z98.84 Bariatric surgery status; Z68.41 Body mass index [BMI] 40.0-44.9, adult; Z79.899 Other long term (current) drug therapy
CPT/HCPCS: 36415; 73120; 80048; 80202; 83605; 85025; 85652; 86140; 87040; 87071; 87205; 87635; 88305; 88311; 96365; 96366; 96367; 99285; J1885; J2405; J2543; J3010; J3370

== ENCOUNTER 2022-02-11 08:23 | Outpatient (REF) | payer OTHER, SELFPAY ==
--- NOTE | ~2022-02-11 | XR_ITS ---
EXAMINATION: XR HAND, LEFT CLINICAL INFORMATION: Pain left hand. COMPARISON: None TECHNIQUE: PA, lateral, and oblique views of the left hand. FINDINGS: There is amputation of left 5th digit beyond the proximal end mid phalanx. The stomach appears unremarkable. No periosteal thickening or gas seen in the stump. The rest of the left hand is unremarkable. The joint spaces are maintained normal. XR/XR hand LT min 3V IMPRESSION: 1. Amputation of left 5th digit beyond the proximal end mid phalanx. The stump appears unremarkable. 2. The rest of the left hand is unremarkable.
== END 2022-02-11 08:24 | disposition home or self-care (01) ==
LOC: HO.HOSX 08:23
PROVIDERS: Visit Provider Orthopaedic Surgery
DX: M79.642 Pain in left hand (principal)
CPT/HCPCS: 73130

== ENCOUNTER 2022-02-16 10:24 | Outpatient (REF) | payer OTHER, SELFPAY | END 2022-02-16 10:25 | disposition home or self-care (01) | LOC: HO.HOSX 10:24 | PROVIDERS: Visit Provider Physician Assistant | DX: M17.12 Unilateral primary osteoarthritis, left knee (principal) | CPT/HCPCS: 20610; J1040 ==

== ENCOUNTER 2022-02-19 08:48 | Outpatient (REF) | payer OTHER, SELFPAY ==
--- NOTE | ~2022-02-19 | US_ITS ---
EXAMINATION: US PELVIS CLINICAL INFORMATION: Leiomyoma of uterus COMPARISON: Previous pelvic ultrasounds most recent December 2020 TECHNIQUE: Ultrasound of the pelvis is performed using both transabdominal and transvaginal transducers along with Doppler. Transvaginal imaging is performed due to inadequate visualization transabdominally. FINDINGS: The uterus is anteverted and measures 7.9 x 4.6 x 7 cm in dimension. There are multiple focal uterine lesions suggestive of fibroids. At least 8 discrete fibroids are identified. Largest fibroids measure 2.6 x 2.1 x 2.5 cm in the mid posterior and left uterine body. Multiple fibroids abut the endometrium. Endometrial thickness measures 0.8 cm which is slightly thickened for a postmenopausal patient. There are multiple small cystic areas seen in the endometrium. The ovaries are normal-appearing. The right ovary measures 2.3 x 1.1 x 1.9 cm. Left ovary measures 2.1 x 1.6 x 1.5 cm. There is no fluid in the pelvis. US/US pelvic and transvaginal IMPRESSION: Innumerable at least 8 uterine fibroids, largest measuring 2.5 x 2.6 cm. Slightly thickened endometrium measuring 8 mm with multiple small cystic areas. Tissue sampling should be considered, particularly if there is history of vaginal bleeding.
== END 2022-02-19 08:49 | disposition home or self-care (01) ==
LOC: HO.HMGCX 08:48
PROVIDERS: Visit Provider Advanced Practice Midwife
DX: D25.9 Leiomyoma of uterus, unspecified (principal)
CPT/HCPCS: 76830; 76856

== ENCOUNTER 2022-04-29 08:45 | Outpatient (REF) | payer OTHER, SELFPAY ==
[2022-05-05 20:42] LABS: HPV mRNA E6/E7 rflx Not Detected (Not Detected)
== END 2022-04-29 08:46 | disposition home or self-care (01) ==
LOC: HO.LNP 08:45
PROVIDERS: Visit Provider Obstetrics & Gynecology
DX: Z12.4 Encounter for screening for malignant neoplasm of cervix (principal); Z11.51 Encounter for screening for human papillomavirus (HPV)
CPT/HCPCS: 87624; 88142

== ENCOUNTER 2022-05-18 15:41 | Outpatient (REF) | payer OTHER, SELFPAY ==
--- NOTE | ~2022-05-18 | MR_ITS ---
EXAMINATION: MRI PELVIS WITH AND WITHOUT CONTRAST CLINICAL INFORMATION: Leiomyoma of the uterus COMPARISON: Ultrasound 02/19/2022 TECHNIQUE: Multiple routine MRI sequences through the pelvis were obtained on a high-field 1.5 Ashli MRI before and after the uneventful administration of 10 mL of Gadavist gadolinium-based IV contrast. FINDINGS: UTERUS: Anteverted uterus has a normal configuration and measures 9 x 6.5 x 4 cm ([id number] x anterior-posterior x transverse). Numerous leiomyomata are seen, distorting the endometrial stripe. The endometrial stripe does not appear thickened however, at most 4 mm in diameter. The junctional zone is not well seen but does not appear thickened. There is a submucosal 2.6 cm myoma of the anterior aspect of the lower uterine segment which deforms the endometrial canal. Less than 50 percent of the circumference of the myoma is abutting the endometrial canal. The remainder of the myomas appear to be predominantly intramural. Examples include a 2 cm myoma of the posterior uterine body 2 cm myoma of the left posterior lower uterine segment; and a 2.5 cm midline fundal myoma. Each of the myomata enhance homogeneously. CERVIX: Normal. VAGINA: Normal; no mass seen. RIGHT OVARY: The right ovary is not seen. No adnexal mass. LEFT OVARY: The left ovary is not seen. No adnexal mass. KIDNEYS: Two normally positioned kidneys are seen. No hydronephrosis. BLADDER: Urinary bladder normal. No urethral diverticulum. PELVIC FREE FLUID: No free fluid or ascites. LYMPH NODES: No pathologically enlarged lymph nodes. OSSEOUS STRUCTURES: Lower lumbar facet arthropathy. There is fluid in both sacroiliac joints with adjacent sclerosis consistent with sacroiliitis. MR/MR pelvis wo/w con IMPRESSION: Myomatous uterus, as described above. Normal thickness of the endometrial stripe. Fluid in the sacroiliac joints bilaterally with adjacent sclerosis. These findings could be seen in the setting of sacroiliitis.
== END 2022-05-18 15:42 | disposition home or self-care (01) ==
LOC: HO.MRI 15:41
PROVIDERS: Visit Provider Obstetrics & Gynecology
DX: D25.9 Leiomyoma of uterus, unspecified (principal)
CPT/HCPCS: 72197; A9585

== ENCOUNTER 2022-05-28 08:08 | Outpatient (REF) | payer OTHER, SELFPAY | END 2022-05-28 08:09 | disposition home or self-care (01) | LOC: HO.LNP 08:08 | PROVIDERS: PCP Internal Medicine; Visit Provider Obstetrics & Gynecology | DX: R93.5 Abnormal findings on diagnostic imaging of other abdominal regions, including retroperitoneum (principal) | CPT/HCPCS: 58100; 88305 ==

== ENCOUNTER 2022-10-05 07:46 | Outpatient (REF) | payer OTHER, SELFPAY ==
--- NOTE | ~2022-10-05 | MM_ITS ---
EXAMINATION: MM SCREENING DIGITAL BREAST TOMOSYNTHESIS, BILATERAL CLINICAL INFORMATION: Screening. Asymptomatic. The lifetime risk of breast cancer based on the Tyrer-Cuzick Model is 9%. COMPARISON: Mammography: 09/17/2021, 09/03/2020, 08/29/2019 TECHNIQUE: Digital breast tomosynthesis is performed in both the craniocaudal and mediolateral oblique views along with computer-aided detection (CAD). Synthesized 2D images are generated from the tomosynthesis. Additional views are obtained: Right CC x2, left CC, bilateral MLO. FINDINGS: There are scattered areas of fibroglandular density (ACR BI-RADS breast composition Category b). Parenchymal pattern is similar to prior studies. There are no significant masses, abnormal calcifications, or other abnormalities. There is no developing density or architectural abnormality. The axilla and skin contours are unremarkable. No significant changes. MM/MM tomosynthesis screening BI IMPRESSION: No mammographic evidence of malignancy. ASSESSMENT: BI-RADS 1: Negative RECOMMENDATION: Routine annual mammography screening. This patient's information was entered into a reminder system with a target due date for their next mammogram.
== END 2022-10-05 07:47 | disposition home or self-care (01) ==
LOC: HO.MAMMO 07:46
PROVIDERS: Visit Provider Internal Medicine
DX: Z12.31 Encounter for screening mammogram for malignant neoplasm of breast (principal)
CPT/HCPCS: 77063; 77067

== ENCOUNTER 2022-11-30 09:46 | Day surgery (SDC) | payer OTHER, SELFPAY ==
[2022-11-26 09:54] VITALS: BMI 40.7
--- NOTE | 2022-11-27 10:47 | P.CONAN_ITS ---
Documented by User: Lanette Gallegos NP 11/27/22 10:47 HPI - Anesthesia Eval Consult details Narrative: 62yo F for Upper Endoscopy and Colonoscopy [facility] Active Problems Active Problems: All Active Problems (Updated 11/26/22 @ 09:50 by Adriana Conte RN) Hypertension (Acute) Morbid obesity (Acute) Osteomyelitis (Acute) Finger osteomyelitis, left (Acute) Ischemic necrosis of finger (Acute) Osteoarthritis of left knee (Acute) Uterine myoma (Acute) Abnormal ultrasound of endometrium (Acute) GERD with esophagitis (Acute) S/P laparoscopic sleeve gastrectomy (Acute) History of repair of hiatal hernia (Acute) History of removal of laparoscopic gastric banding device (Acute) Gastric band slippage (Acute) Past Medical History Medical History (Updated 11/26/22 @ 09:50 by Adriana Conte RN) Abnormal EKG Adjustment disorder, unspecified BMI 45.0-49.9, adult COVID-19 vaccine series completed Essential hypertension Gastric band slippage GERD with esophagitis Helicobacter pylori gastritis Insomnia Left leg pain Morbid obesity with BMI of 40.0-44.9, adult PPD positive Preoperative cardiovascular examination Preoperative examination Rheumatoid arthritis Shortness of breath Smoker Vitamin B1 deficiency Vitamin D deficiency Family History Family History Father Family history of high blood pressure Mother No problems noted. Brother No problems noted. Sister No problems noted. Sister No problems noted. Sister No problems noted. Sister No problems noted. Son No problems noted. Family history of problems with anesthesia: No Surgical History Surgical History History of adjustable gastric banding History of (~1996) History of colonoscopy (~05/2019) History of esophagogastroduodenoscopy (EGD) History of removal of laparoscopic gastric banding device History of repair of hiatal hernia Hx of endoscopy (~07/2019) S/P laparoscopic sleeve gastrectomy History of Problems with Anesthesia: No Social History Social History Household Members: None Housing: Apartment Are you a primary primary care sales representative to a significant other at home: No Do you presently have visiting nurse or other home services: No Alcohol intake: current Alcohol intake frequency: 0-2 drinks per day Patient Tobacco Use Status: Current someday Tobacco user Tobacco use type: Cigarette Cigarette Packs Per Day: 0 Cigarettes Per Day: 5 Use of substances other than those prescribed or required for medical reasons: No Have you been hit, kicked, punched, or otherwise hurt by someone within the past year? If so, by whom?: No Advance Directives: Yes Advance Directives Information Provided: No Advance Directives on File: Yes Advance Directives Date on File: 01/23/21 Recently lost weight without trying: No Eating poorly because of decreased appetite: No Nutrition Risks: No Nutritional Risk Patient : No Poor oral hygiene: Yes (partial upper denture) service: No Current occupational status: employed Meds Allergies Allergy/AdvReac Type Severity Reaction Status Date / Time pollen extracts Allergy Runny Nose Verified 11/26/22 09:49 Bee Allergy Severe Abdominal Uncoded 06/11/22 09:26 Pain Home Medications Medication Instructions Recorded Confirmed Last Taken Type lisinopril 10 mg tablet 10 mg PO DAILY 07/25/20 11/26/22 01/14/22 History zinc sulfate 50 mg zinc (220 mg) 50 mg PO DAILY 11/08/20 11/26/22 01/14/22 History capsule turmeric 400 mg capsule 400 mg PO .qod 12/10/20 11/26/22 01/14/22 History acetaminophen 650 mg 1 tab PO Q8H PRN pain 01/14/22 05/21/22 Unknown History tablet,extended release duloxetine 30 mg capsule,delayed 30 mg PO DAILY 05/21/22 11/26/22 Unknown History release omeprazole 20 mg capsule,delayed 20 mg PO DAILY 05/21/22 11/26/22 Unknown History release Exam Exam Date and Time: November 27, 2022 1047 Height,Weight and Vital Signs: Height 5 ft 8 in Weight 121.563 kg Assessment and Plan Assessment Anesthesia Assessment: Chart Reviewed Final Anesthetic Review Family History of Problems with Anesthesia: No History of Problems with Anesthesia: No Documented by User: Cintia Gaines MD 11/30/22 11:51 [facility] Past Medical History Medical History (Updated 11/26/22 @ 09:50 by Adriana Conte RN) Abnormal EKG Adjustment disorder, unspecified BMI 45.0-49.9, adult COVID-19 vaccine series completed Essential hypertension Gastric band slippage GERD with esophagitis Helicobacter pylori gastritis Insomnia Left leg pain Morbid obesity with BMI of 40.0-44.9, adult PPD positive Preoperative cardiovascular examination Preoperative examination Rheumatoid arthritis Shortness of breath Smoker Vitamin B1 deficiency Vitamin D deficiency Family History Family History Father Family history of high blood pressure Mother No problems noted. Brother No problems noted. Sister No problems noted. Sister No problems noted. Sister No problems noted. Sister No problems noted. Son No problems noted. Surgical History Surgical History History of adjustable gastric banding History of (~1996) History of colonoscopy (~05/2019) History of esophagogastroduodenoscopy (EGD) History of removal of laparoscopic gastric banding device History of repair of hiatal hernia Hx of endoscopy (~07/2019) S/P laparoscopic sleeve gastrectomy Social History Social History Household Members: None Housing: Apartment Are you a primary primary care sales representative to a significant other at home: No Do you presently have visiting nurse or other home services: No Alcohol intake: current Alcohol intake frequency: 0-2 drinks per day Patient Tobacco Use Status: Current someday Tobacco user Tobacco use type: Cigarette Cigarette Packs Per Day: 0 Cigarettes Per Day: 5 Use of substances other than those prescribed or required for medical reasons: No Have you been hit, kicked, punched, or otherwise hurt by someone within the past year? If so, by whom?: No Advance Directives: Yes Advance Directives Information Provided: No Advance Directives on File: Yes Advance Directives Date on File: 01/23/21 Recently lost weight without trying: No Eating poorly because of decreased appetite: No Nutrition Risks: No Nutritional Risk Patient : No Poor oral hygiene: Yes (partial upper denture) service: No Current occupational status: employed Meds Allergies Allergy/AdvReac Type Severity Reaction Status Date / Time pollen extracts Allergy Runny Nose Verified 11/26/22 09:49 Bee Allergy Severe Abdominal Uncoded 06/11/22 09:26 Pain Home Medications Medication Instructions Recorded Confirmed Last Taken Type lisinopril 10 mg tablet 10 mg PO DAILY 07/25/20 11/26/22 01/14/22 History zinc sulfate 50 mg zinc (220 mg) 50 mg PO DAILY 11/08/20 11/26/22 01/14/22 History capsule turmeric 400 mg capsule 400 mg PO .qod 12/10/20 11/26/22 01/14/22 History acetaminophen 650 mg 1 tab PO Q8H PRN pain 01/14/22 05/21/22 Unknown History tablet,extended release duloxetine 30 mg capsule,delayed 30 mg PO DAILY 05/21/22 11/26/22 Unknown History release omeprazole 20 mg capsule,delayed 20 mg PO DAILY 05/21/22 11/26/22 Unknown History release Exam Airway Mallampati Class: II (missing a couple, denies [id number]) TM Dist: >3cm Neck ROM: Full Heart: rrr Lungs: cta Assessment and Plan Assessment Anesthesia Assessment: Anesthesia Plan Discussed Final Anesthetic Review NPO: Yes ASA Class: III Final Preanesthetic Review: No Changes in Pt Med Stat, Meds/Allgs Chart Reviewed and Consent Obtained/Reviewed Patient Risk: Intermediate Procedure Risk: Intermediate Anesthetic Plan Anesthetic Plan: MAC: Disposition: Standard PACU
[2022-11-30 11:09] VITALS: BP 129/59; PULSE 64; RESP 16; TEMP 36; O2SAT 99
[2022-11-30] MEDS: Lactated Ringers 1,000 ML 100 ML IVCONT (11:30)
--- NOTE | 2022-11-30 11:58 | MHC.SHP ---
Pre-Procedural Eval Section A Date of Service: 11/30/22 The History & Physical has been completed within 30 days and I have reviewed it.: No Section B Chief Complaint: screening, GERD, bariatric surgery status Relevant Family History (Specify if Yes): No Relevant Social History: Tobacco Use Present Medications: see Short Stay Collaborative assessment Medical History: Significant History (Essential hypertension Gastric band slippage GERD with esophagitis Helicobacter pylori gastritis Insomnia Left leg pain Morbid obesity with BMI of 40.0-44.9, adult PPD positive Preoperative cardiovascular examination Preoperative examination Rheumatoid arthritis Shortness of breath Smoker) History of Previous Operations: Relevant previous surgery/procedure and date(s) (History of adjustable gastric banding History of (~1996) History of colonoscopy (~05/2019) History of esophagogastroduodenoscopy (EGD) History of removal of laparoscopic gastric banding device History of repair of hiatal hernia Hx of endoscopy (~07/2019) S/P laparoscopic sleeve gastrectomy) Allergies: Allergies Allergy/AdvReac Type Severity Reaction Status Date / Time pollen extracts Allergy Runny Nose Verified 11/26/22 09:49 Bee Allergy Severe Abdominal Uncoded 06/11/22 09:26 Pain Review of Systems Sugical H&P ROS: Negative: Constitution, Cardiovascular, Respiratory and Gastrointestinal Exam Surgical H&P Exam: Normal: Heart, Normal: Lungs, Normal: Extremities and Normal: Abdomen Plan Diagnosis/Plan: Unchanged I have reviewed the history and physical and performed a pertinent physical examination on my patient. No changes have occurred unless specified. Time Spent With Patient Time: Total time managing care of this patient today ____ minutes.
--- NOTE | 2022-11-30 13:12 | W.PM.OPN ---
Operative Note Operative Note Date of Service: 11/30/22 Narrative: FLEXIBLE TRANSORAL UPPER GASTROINTESTINAL ENDOSCOPY WITH BIOPSIES AND COLONOSCOPY TILL CECUM WITH BIOPSIES AND SNARE POLYPECTOMY Pre-op diagnosis: Colon cancer screening, abdominal pain Post-op diagnosis: Gastritis, nodule GE junction, sleeve gastrectomy status, colon polyps, diverticulosis? Endoscopist:? Jeimy Gibbons MD Anesthesia:?MAC UPPER ENDOSCOPY Consent: Indications for the procedure and potential complications of bleeding, perforation, reaction to medications and missed diagnosis were discussed with the patient and informed consent was obtained. Instrument: Olympus GIF H 190 mid size upper endoscope Monitoring: Vital signs and clinical assessment, continuous EKG monitoring, Pulse oximetry, Carbon Dioxide monitoring and blood pressure monitoring were done throughout the procedure. Procedure: The patient was placed in the left lateral decubitis position and pre-procedure medications were administered and a bite block was placed. The endoscope was inserted into the mouth and advanced under direct vision to the third part of duodenum. A careful inspection was made as the upper endoscope was withdrawn including a retroflexed examination of the proximal stomach; Findings and interventions are described below. Findings: Larynx: Normal Esophagus: GE junction at 40 cms. A 4-5 mm benign appearing nodule on gastric side of GEJ - biopsied. Erosions noted on last EGD appeared to have healed. No esophagitis or Rosas?s. Stomach: Mild antral erythema in the gastric pouch - Biopsies were obtained from the antrum. Grade 2 flap valve on retroflexed examination of the cardia. Duodenum: Normal bulb and descending duodenum - biopsies were obtained from 3rd part of the duodenum to check for celiac sprue Intervention: Biopsies as noted above COLONOSCOPY PROCEDURE NOTE Consent: Indications for the procedure and potential complications of bleeding, perforation, reaction to medications and missed diagnosis were discussed with the patient and informed consent was obtained. Instrument: Olympus PCF H 190 L variable stiffness pediatric colonoscope Monitoring: Vital signs and clinical assessment, intermittent blood pressure monitoring, continuous EKG monitoring, Pulse oximetry and Carbon Dioxide monitoring were done throughout the procedure. Colon withdrawl time was 26 minutes. Procedure: The patient was placed in the left lateral decubitis position and pre-procedure medications were administered. After a digital rectal examination of the ano-rectum, the video colonoscope was inserted into the rectum and advanced through the colon to the cecum. The colonoscope was slowly withdrawn in a retrograde panoramic fashion and the colon mucosa was carefully examined including a retroflexed view of the rectum. Findings and interventions are described below. Procedure Difficulty: Colon was long and tortuous and there was some loop formation. Findings: Terminal Ileum: Not evaluated Cecum: A 2-3 mm sessile polyp removed with a cold bx Ascending Colon: A 6-7mm sessile polyp in the mid AC - removed with a cold snare A 4-5 mm sessile polyp in the distal AC colon - removed with a cold bx Transverse Colon: Normal Descending Colon: Moderate diverticulosis Sigmoid Colon: A 6 - 7 mm sessile polyp - removed with a cold snare Moderate diverticulosis Rectum: A 4-5 mm sessile polyp removed with a cold bx Ano-rectum: Normal Colon preparation: Good after copious irrigation Impression and Post Procedure Diagnosis: Endoscopy Findings: ESOPHAGUS: Benign appearing nodule on gastric side of GE junction STOMACH: Mild gastritis otherwise normal appearing gastrc pouch DUODENUM: Normal Colonoscopy Findings: Five small polyps removed Moderate diverticulosis seen in the left colon Plan: Await pathology results Patient has an appointment on 02/11/23 in the [facility] with Jeimy Gibbons M.D. Repeat Colonoscopy interval based on path results - in 3-5 years if polyps are adenomatous and 10 years if polyps are hyperplastic. Above findings were reviewed with the patient and colon polyps and diverticulosis handouts were given in the discharge area
[2022-11-30 14:08] VITALS: BP 135/79; PULSE 68; RESP 16; TEMP 36.1; O2SAT 99
[2022-11-30 14:23] VITALS: BP 133/65; PULSE 72; RESP 16; TEMP 36.1; O2SAT 98
== END 2022-11-30 15:14 | disposition home or self-care (01) ==
PROVIDERS: PCP Internal Medicine; Visit Provider Internal Medicine Gastroenterology
PROC: (CPT 45385; principal; 2022-11-30 12:00)
DX: Z12.11 Encounter for screening for malignant neoplasm of colon (principal); D12.2 Benign neoplasm of ascending colon; K63.5 Polyp of colon; K62.1 Rectal polyp; K57.30 Diverticulosis of large intestine without perforation or abscess without bleeding; K21.9 Gastro-esophageal reflux disease without esophagitis; K29.50 Unspecified chronic gastritis without bleeding; K20.80 Other esophagitis without bleeding; K22.82 Esophagogastric junction polyp; I10 Essential (primary) hypertension; M86.9 Osteomyelitis, unspecified; Z98.84 Bariatric surgery status; E66.01 Morbid (severe) obesity due to excess calories; Z68.39 Body mass index [BMI] 39.0-39.9, adult; R76.11 Nonspecific reaction to tuberculin skin test without active tuberculosis; Z79.899 Other long term (current) drug therapy
CPT/HCPCS: 45385; 45380; 43239; 88305; 88342

== ENCOUNTER 2022-12-10 14:50 | Outpatient (REF) | payer OTHER, SELFPAY ==
--- NOTE | ~2022-12-10 | US_ITS ---
EXAMINATION: US PELVIS CLINICAL INFORMATION: Leiomyoma of uterus. COMPARISON: MRI abdomen 05/18/2022. Pelvic ultrasound 01/14/2021. TECHNIQUE: Ultrasound of the pelvis is performed using both transabdominal and transvaginal transducers along with Doppler. Transvaginal imaging is performed due to inadequate visualization transabdominally. FINDINGS: Uterus: The uterus is anteverted and measures 7.2 x 4.7 x 6.5 cm. Total uterine volume 116 mL. There are multiple uterine fibroids without significant change from prior. The fibroids limiting assessment of the endometrial stripe. However, the stripe appears thickened measuring 1.0 cm with small endometrial cysts. Adnexa: The right ovary appears normal measuring 2.1 x 1.7 x 1.4 cm. The left ovary appears normal measuring 1.9 x 1.2 x 1.3 cm. US/US pelvic and transvaginal IMPRESSION: Thickened endometrium measuring 10 mm with small endometrial cysts. This is stable compared to prior ultrasound though on MRI the stripe measured only 4 mm. Consider endometrial biopsy. Urine fibroid without significant change from prior.
== END 2022-12-10 14:51 | disposition home or self-care (01) ==
LOC: HO.US 14:50
PROVIDERS: PCP Internal Medicine; Visit Provider Obstetrics & Gynecology
DX: D25.9 Leiomyoma of uterus, unspecified (principal)
CPT/HCPCS: 76830; 76856

== ENCOUNTER → 2022-12-31 10:35 | Outpatient (BNVA) | payer OTHER, SELFPAY | PROVIDERS: PCP Internal Medicine; Visit Provider Obstetrics & Gynecology | CPT/HCPCS: 81025 ==

== ENCOUNTER 2023-01-14 10:05 | Outpatient (REF) | payer OTHER, SELFPAY ==
--- NOTE | ~2023-01-14 | US_ITS ---
EXAMINATION: US VENOUS ULTRASOUND WITH DOPPLER LOWER EXTREMITY, LEFT CLINICAL INFORMATION: Left lower extremity COMPARISON: None available. TECHNIQUE: Ultrasound of the deep veins is performed from the hip to the calf with compression sonography and color and pulse Doppler assessment. Spectral analysis with color-flow imaging is performed. FINDINGS: There is normal venous compression and respiratory variation and augmented flow. The visualized common femoral vein, superficial femoral vein, profunda femoral vein, popliteal vein, and the trifurcation region shows no evidence of deep venous thrombosis. There is a complex Ladd's cyst in the left popliteal fossa measuring 5.5 x 3.1 x 2.8 cm. Left knee joint effusion is also present. The lump indicated by the patient is an area of focal edema with superficial varicosities above the If the patient's symptoms persist, followup ultrasound in 5 days 7 days might be of value to exclude proximal propagation from a non-visualized calf vein. US/US venous duplex LE IMPRESSION: No DVT demonstrated in the left lower extremity. Other findings described above.
== END 2023-01-14 10:06 | disposition home or self-care (01) ==
LOC: HO.US 10:05
PROVIDERS: Absent Provider Internal Medicine; PCP Internal Medicine; Visit Provider Advanced Practice Midwife
DX: R22.42 Localized swelling, mass and lump, left lower limb (principal)
CPT/HCPCS: 93971

== ENCOUNTER 2023-01-22 08:50 | Day surgery (SDC) | payer OTHER, SELFPAY ==
[2023-01-19 11:13] VITALS: BMI 42.0
--- NOTE | 2023-01-21 08:36 | P.CONAN_ITS ---
Documented by User: Lanette Gallegos NP 01/21/23 08:37 HPI - Anesthesia Eval Consult details Narrative: 62yo F for D&C Hysteroscopy poss myomectomy/polypectomy s/p EGD and [place] 11/2022 with [facility] Active Problems Active Problems: All Active Problems (Updated 11/26/22 @ 09:50 by Adriana Conte RN) Hypertension (Acute) Morbid obesity (Acute) Osteomyelitis (Acute) Finger osteomyelitis, left (Acute) Ischemic necrosis of finger (Acute) Osteoarthritis of left knee (Acute) Uterine myoma (Acute) Abnormal ultrasound of endometrium (Acute) GERD with esophagitis (Acute) S/P laparoscopic sleeve gastrectomy (Acute) History of repair of hiatal hernia (Acute) History of removal of laparoscopic gastric banding device (Acute) Gastric band slippage (Acute) Past Medical History Medical History Abnormal EKG Adjustment disorder, unspecified BMI 45.0-49.9, adult COVID-19 vaccine series completed Essential hypertension Gastric band slippage GERD with esophagitis Helicobacter pylori gastritis Insomnia Left leg pain Morbid obesity with BMI of 40.0-44.9, adult PPD positive Preoperative cardiovascular examination Preoperative examination Rheumatoid arthritis Shortness of breath Smoker Vitamin B1 deficiency Vitamin D deficiency Family History Family History Father Family history of high blood pressure Mother No problems noted. Brother No problems noted. Sister No problems noted. Sister No problems noted. Sister No problems noted. Sister No problems noted. Son No problems noted. Family history of problems with anesthesia: No Surgical History Surgical History History of adjustable gastric banding History of (~1996) History of colonoscopy (~05/2019) History of esophagogastroduodenoscopy (EGD) History of removal of laparoscopic gastric banding device History of repair of hiatal hernia Hx of endoscopy (~07/2019) S/P laparoscopic sleeve gastrectomy History of Problems with Anesthesia: No Social History Social History Household Members: None Housing: Apartment Are you a primary home health care worker to a significant other at home: No Do you presently have visiting nurse or other home services: No Alcohol intake: current Alcohol intake frequency: holidays/special occasions only Patient Tobacco Use Status: Current someday Tobacco user Tobacco use type: Cigarette Cigarette Packs Per Day: 0 Cigarettes Per Day: 5 Are you DNR?: No Advance Directives: No Advance Directives Information Provided: Yes Advance Directives Date on File: 01/23/21 Nutrition Risks: No Nutritional Risk service: No Current occupational status: employed Meds Allergies Allergy/AdvReac Type Severity Reaction Status Date / Time pollen extracts Allergy Runny Nose Verified 12/31/22 10:55 Bee Allergy Severe Abdominal Uncoded 12/31/22 10:55 Pain Home Medications Medication Instructions Recorded Confirmed Last Taken Type lisinopril 10 mg tablet 10 mg PO DAILY 07/25/20 11/26/22 01/14/22 History zinc sulfate 50 mg zinc (220 mg) 50 mg PO DAILY 11/08/20 11/26/22 01/14/22 History capsule turmeric 400 mg capsule 400 mg PO .qod 12/10/20 11/26/22 01/14/22 History acetaminophen 650 mg 1 tab PO Q8H PRN pain 01/14/22 05/21/22 Unknown History tablet,extended release omeprazole 20 mg capsule,delayed 20 mg PO DAILY 05/21/22 11/26/22 01/22/23 History release Exam Exam Date and Time: January 21, 2023 0836 Height,Weight and Vital Signs: Height 5 ft 8 in Weight 125.191 kg Assessment and Plan Assessment Anesthesia Assessment: Chart Reviewed Final Anesthetic Review Family History of Problems with Anesthesia: No History of Problems with Anesthesia: No Documented by User: Luis Martins MD 01/22/23 09:42 [facility] Past Medical History Medical History Abnormal EKG Adjustment disorder, unspecified BMI 45.0-49.9, adult COVID-19 vaccine series completed Essential hypertension Gastric band slippage GERD with esophagitis Helicobacter pylori gastritis Insomnia Left leg pain Morbid obesity with BMI of 40.0-44.9, adult PPD positive Preoperative cardiovascular examination Preoperative examination Rheumatoid arthritis Shortness of breath Smoker Vitamin B1 deficiency Vitamin D deficiency Family History Family History Father Family history of high blood pressure Mother No problems noted. Brother No problems noted. Sister No problems noted. Sister No problems noted. Sister No problems noted. Sister No problems noted. Son No problems noted. Surgical History Surgical History History of adjustable gastric banding History of (~1996) History of colonoscopy (~05/2019) History of esophagogastroduodenoscopy (EGD) History of removal of laparoscopic gastric banding device History of repair of hiatal hernia Hx of endoscopy (~07/2019) S/P laparoscopic sleeve gastrectomy Social History Social History Household Members: None Housing: Apartment Are you a primary home health care worker to a significant other at home: No Do you presently have visiting nurse or other home services: No Alcohol intake: current Alcohol intake frequency: holidays/special occasions only Patient Tobacco Use Status: Current someday Tobacco user Tobacco use type: Cigarette Cigarette Packs Per Day: 0 Cigarettes Per Day: 5 Are you DNR?: No Advance Directives: No Advance Directives Information Provided: Yes Advance Directives Date on File: 01/23/21 Nutrition Risks: No Nutritional Risk service: No Current occupational status: employed Meds Allergies Allergy/AdvReac Type Severity Reaction Status Date / Time pollen extracts Allergy Runny Nose Verified 12/31/22 10:55 Bee Allergy Severe Abdominal Uncoded 12/31/22 10:55 Pain Home Medications Medication Instructions Recorded Confirmed Last Taken Type lisinopril 10 mg tablet 10 mg PO DAILY 07/25/20 11/26/22 01/14/22 History zinc sulfate 50 mg zinc (220 mg) 50 mg PO DAILY 11/08/20 11/26/22 01/14/22 History capsule turmeric 400 mg capsule 400 mg PO .qod 12/10/20 11/26/22 01/14/22 History acetaminophen 650 mg 1 tab PO Q8H PRN pain 01/14/22 05/21/22 Unknown History tablet,extended release omeprazole 20 mg capsule,delayed 20 mg PO DAILY 05/21/22 11/26/22 01/22/23 History release Exam Airway Mallampati Class: II TM Dist: >3cm Neck ROM: Limited Heart: rrr Lungs: cta Assessment and Plan Assessment Anesthesia Assessment: Anesthesia Plan Discussed Final Anesthetic Review NPO: Yes ASA Class: III Final Preanesthetic Review: No Changes in Pt Med Stat, Meds/Allgs Chart Reviewed, Consent Obtained/Reviewed and Anes Risks/Benef Reviewed Patient Risk: Intermediate Procedure Risk: Intermediate Anesthetic Plan Anesthetic Plan: GA and Agree w/ Assess. and Plan Disposition: Standard PACU
[2023-01-22 09:01] VITALS: BP 156/43; PULSE 59; RESP 18; TEMP 36.6; O2SAT 99
[2023-01-22] MEDS: Lactated Ringers 1,000 ML 100 ML IVCONT (09:26)
--- NOTE | 2023-01-22 10:02 | MHC.SHP ---
Pre-Procedural Eval Section A Date of Service: 01/22/23 The patient is an INPATIENT: No Changes since office visit: No Cold of Flu in the past 2 weeks, No New Medical Problems, No Changes in Medication and No Patient answered all questions The History & Physical has been completed within 30 days and I have reviewed it.: Yes Section B Chief Complaint: Abnormal findings on diagnostic imaging of other a Allergies: Allergies Allergy/AdvReac Type Severity Reaction Status Date / Time pollen extracts Allergy Runny Nose Verified 12/31/22 10:55 Bee Allergy Severe Abdominal Uncoded 12/31/22 10:55 Pain Plan Diagnosis/Plan: Unchanged I have reviewed the history and physical and performed a pertinent physical examination on my patient. No changes have occurred unless specified. Time Spent With Patient Time: Total time managing care of this patient today ____ minutes.
[2023-01-22 11:08] VITALS: BP 114/58; PULSE 67; RESP 16; TEMP 36.3; O2SAT 94
--- NOTE | 2023-01-22 11:09 | PM.OP ---
Brief Operative Note Date of Service: 01/22/23 Pre-op diagnosis: Abnormal endometrium by ultrasound Post-op diagnosis: same (Endometrial polyp and submucosal myoma) Procedure: Hysteroscopy D&C, Polypectomy, myomectomy Surgeon: Krishna James MD Anesthesia: GLMA Was an Technical Staff Assistant used for this Procedure?: No Estimated blood loss (mL): 0 Pathology: other (Endometrial Scrapping, Polyp, submucosal myoma) Condition: stable Disposition: PACU
--- NOTE | 2023-01-22 11:10 | P.OP_ITS ---
Operative Note Operative Note Date of Service: 01/22/23 Narrative: Preop Diagnosis: Endometrial polyp by US Operation: Diagnostic Hysteroscopy, Dilataion & Curettage, myomectomy and polypectomy Post Op Diagnosis: Endometrial Polyp, submucosal myoma QBL: Minimal Anesthesia: GLMA Surgeon: Krishna James MD Maintenance Engineer Oil Field: None Complication: None Pathology: Endometrial Scrapings, Endometrial polyp, submucosal myoma Procedure: The patient was put in the dorsal lithotomy position, scrubbed, and draped in the usual manner. A sterile speculum was inserted in the patient's vagina. The anterior lip of the cervix was grasped with a single tooth tenaculum. The cervix was dilated up to 5 mm, then the scope was inserted in the patient's uterus. Inspection revealed endometrial polyp and submucosal myoma. The Myosure Reach device was used; it was introduced through the operative channel and polypectomy and myomectomy were done with no complications. The scope was then taken out from the uterine cavity, sharp curettings was carried on with minimal to moderate amount of tissues retrieved. At the end of the procedure, all instruments were taken out of the patient uterine and vaginal cavity. The single tooth tenaculum was removed and homeostasis was assured using pressure,. The patient tolerated the procedure well and was transferred to the PACU in a stable condition.
[2023-01-22 11:13] VITALS: BP 124/70; PULSE 56; RESP 16; O2SAT 96
[2023-01-22 11:18] VITALS: BP 118/67; PULSE 57; RESP 16; O2SAT 96
[2023-01-22 11:23] VITALS: BP 138/64; PULSE 58; RESP 16; O2SAT 96
[2023-01-22 11:43] VITALS: BP 151/59; PULSE 54; RESP 16; TEMP 36.3; O2SAT 94
== END 2023-01-22 12:05 | disposition home or self-care (01) ==
PROVIDERS: PCP Internal Medicine; Visit Provider Obstetrics & Gynecology
PROC: 0UDB8ZZ Extraction of Endometrium, Via Natural or Artificial Opening Endoscopic (ICD-10-PCS; CPT 58558; principal; 2023-01-22 10:30)
DX: N84.0 Polyp of corpus uteri (principal); N85.8 Other specified noninflammatory disorders of uterus; I10 Essential (primary) hypertension; K21.00 Gastro-esophageal reflux disease with esophagitis, without bleeding; M06.9 Rheumatoid arthritis, unspecified; Z68.41 Body mass index [BMI] 40.0-44.9, adult; E66.01 Morbid (severe) obesity due to excess calories; Z79.899 Other long term (current) drug therapy; Z98.84 Bariatric surgery status; F17.210 Nicotine dependence, cigarettes, uncomplicated
CPT/HCPCS: 58558; 88305; J1885; J2250; J2405; J3010

== ENCOUNTER 2023-02-03 12:45 | Outpatient (AMB) | payer OTHER, SELFPAY ==
[2023-02-03 12:52] VITALS: BP 140/70; BMI 42.0
--- NOTE | 2023-02-03 12:52 | A.OFFVIS_ITS ---
Intake Vital Signs 02/03/23 12:52 Height 5 ft 8 in Weight 276 lb BMI 42.0 BP 140/70 H Intake Visit Reasons: post op Technology Training Associate Required: No Information Interpreted: non-clinical & clinical Ict Sales Representative: Ict Sales Representative Present (Aidyn) Allergies pollen extracts Allergy (Verified 02/03/23 12:53) Runny Nose Bee Allergy (Severe, Uncoded 02/03/23 12:53) Abdominal Pain Is last menstrual period known: No Post menopausal: Yes HPI HPI Comments History of Present Illness Details The patient is presenting post hysteroscopy D&C no complaints minimal vaginal bleeding no feverishness chills or abdominal pain. The pathology showed the following: A. Endometrium, curettage: Strips of benign inactive be endometrium and fragment of benign polyp; no atypia or carcinoma. B. Endometrial polyp, resection: Benign endometrial polyp/s with focal surface metaplastic changes and cysts, and fragments of benign smooth muscle with focal hyaline degeneration, suggesting submucosal leiomyomata; no atypia or carcinoma. [facility] History Abnormal EKG Adjustment disorder, unspecified BMI 45.0-49.9, adult COVID-19 vaccine series completed Essential hypertension Gastric band slippage GERD with esophagitis Helicobacter pylori gastritis Insomnia Left leg pain Morbid obesity with BMI of 40.0-44.9, adult PPD positive Preoperative cardiovascular examination Preoperative examination Rheumatoid arthritis Shortness of breath Smoker Vitamin B1 deficiency Vitamin D deficiency Surgical History History of adjustable gastric banding History of (~1996) History of colonoscopy (~05/2019) History of esophagogastroduodenoscopy (EGD) History of removal of laparoscopic gastric banding device History of repair of hiatal hernia Hx of endoscopy (~07/2019) S/P laparoscopic sleeve gastrectomy Family History Father Family history of high blood pressure Mother No problems noted. Brother No problems noted. Sister No problems noted. Sister No problems noted. Sister No problems noted. Sister No problems noted. Son No problems noted. Social History Household Members: None Housing: Apartment Are you a primary critical care unit nurse to a significant other at home: No Do you presently have visiting nurse or other home services: No Alcohol intake: current Alcohol intake frequency: holidays/special occasions only Patient Tobacco Use Status: Current someday Tobacco user Tobacco use type: Cigarette Cigarette Packs Per Day: 0 Cigarettes Per Day: 5 Advance Directives Date on File: 01/23/21 service: No Current occupational status: employed Female Reproductive History Menstrual Date of last pap smear: 05/01/22 (negative) Date of Mammogram: 10/05/22 Review of Systems Const All systems reviewed & are unremarkable except as noted in HPI and below Reports as per HPI and Reports no additional complaints GI Reports no additional complaints Reports no additional complaints Physical Exam Vital Signs: Last Vital Signs BP 140/70 H 02/03/23 12:52 BMI result Body Mass Index 42.0 Assessment & Plan Assessment & Plan (1) Abnormal ultrasound of endometrium: Code(s): R93.5 - Abnormal findings on diagnostic imaging of other abdominal regions, including retroperitoneum Plan: Discussed with the patient the operative findings, endometrial polyp and the pathology results. Discussed with the patient the sensitivity, specificity, positive and negative predictive value, of endometrial biopsy in detecting e ndometrial pathology including but not limited to endometrial hyperplasia, cancer and other pathology; instructed the patient to call in case is vaginal bleeding bleeding occurs, the next step will be to proceed with further endometrial sampling evaluation to rule out endometrial pathology. All questions answered and the patient verbalized understanding and agreed with the plan. All questions answered, the patient verbalized understanding. Coding Level of Care Code Est Pt Level 3 (30554) Diagnoses Abnormal ultrasound of endometrium R93.5
== END 2023-02-03 13:01 | disposition home or self-care (01) ==
LOC: HO.HWS 12:46
PROVIDERS: PCP Internal Medicine; Visit Provider Obstetrics & Gynecology
DX: R93.5 Abnormal findings on diagnostic imaging of other abdominal regions, including retroperitoneum (principal)
CPT/HCPCS: 99213

== ENCOUNTER → 2023-02-03 12:45 | Outpatient (BNVA) | payer OTHER, SELFPAY | PROVIDERS: PCP Internal Medicine; Visit Provider Obstetrics & Gynecology ==

== ENCOUNTER 2023-02-11 08:29 | Outpatient (AMB) | payer OTHER, SELFPAY ==
--- NOTE | 2023-02-11 08:34 | MHC.OFFVIS ---
Intake Vital Signs 02/11/23 08:38 Height 5 ft 8 in Weight 265 lb BMI 40.3 BP 146/63 H Blood Pressure Location Lt brachial Position Sitting Pulse 73 Intake Visit Reasons: S/p EGD/colo Intake Note: Patient follow up for Colonoscopy/EGD results. Patient denies any GI issues. Casino Slot Supervisor Required: No Accompanied by: Self / Same As Patient Allergies pollen extracts Allergy (Verified 02/11/23 08:34) Runny Nose Bee Allergy (Severe, Uncoded 02/03/23 12:53) Abdominal Pain Medication List - Last Reconciled 02/11/23 by Jeimy Gibbons MD acetaminophen ER 1 tab PO Q8H PRN cholecalciferol (vitamin D3) 125 mcg PO DAILY lisinopril 10 mg PO DAILY omeprazole 20 mg PO DAILY turmeric 400 mg PO .qod zinc sulfate 50 mg PO DAILY HPI S/p EGD/colo HPI Details FU GI CLINIC VISIT FOR THIS 61-YEAR-OLD FEMALE FOR FOLLOW-UP EVALUATION EPIGASTRIC PAIN AND COLON CANCER SCREENING. ? CHRONIC ILLNESSES: hypertension, obesity - status post Lap Band, PPD POSITIVE, INSOMNIA, HYPERTENSION, LEFT LEG SWELLING, TENDNITIS, HEARTBURN ? ? ? LABS IN [facility]: 08/24/19 Normal CBC and Chem panel ?IMAGING STUDIES: 08/22/19 UGI showed: ? Postsurgical change following gastric lap band. The lap band appears ? disconnected from the catheter. There is evidence of slippage with phi ? angle measuring 85. There is severe gastroesophageal reflux. The ? esophagus appears patulous and there is question of mucosal ? irregularity of the distal thoracic esophagus or esophagitis. There is ? marked narrowing of the stomach from the gastric lap band. ?ENDOSCOPIC STUDIES: 11/30/22 EGD AND COLON WAS PERFORMED: Endoscopy Findings: ESOPHAGUS: Benign appearing nodule on gastric side of GE junction STOMACH: Mild gastritis otherwise normal appearing gastrc pouch DUODENUM: Normal Colonoscopy Findings: Five small polyps removed (two were adnomatous) Moderate diverticulosis seen in the left colon Plan: Repeat Colonoscopy interval based on path results - in 3-5 years if polyps are adenomatous and 10 years if polyps are hyperplastic. BIOPSIES SHOWED: A.? Small bowel, biopsy:? Small intestinal mucosa within normal limits; negative for celiac disease. B.? Stomach, antrum, biopsy:? Antral-type mucosa with moderate chronic inactive inflammation; no Helicobacter organisms seen. C.? GE junction, nodule, biopsy: - Cardiofundic-type mucosa with moderate chronic inactive inflammation; no intestinal metaplasia seen. - Active esophagitis (maximum eosinophil count 2 per high powered field). D.? Cecum, polypectomy:? Colonic mucosa with prominent lymphoid aggregate; no dysplasia seen. E.? Colon, ascending, polypectomies:? Tubular adenomata (2); negative for high-grade dysplasia or carcinoma. F. ? Colon, sigmoid, polypectomy:? Hyperplastic mucosal polyp. G.? Rectum, polypectomy:? Hyperplastic mucosal polyp. 08/08/19 EGD SHOWED: ? ESOPHAGUS: Erosive esophagitis ? STOMACH: Gastritis ? DUODENUM: Normal ? Plan: ? Await pathology results ? Continue present medications (Omeprazole at 20 mg PO once daily) ? Schedule an UGI to assess Lap Band. ? Patient has an appointment on 08/24/19 in the GI Clinic with Jeimy Gibbons M.D ? Above findings were reviewed with the patient and handout on GERD was provided in the discharge area. ? BIOPSIES SHOWED: ? A. Stomach, biopsies: Gastric mucosa with moderate active gastritis; positive for Helicobacter organisms consistent with helicobacter pylori gastritis; positive for intestinal metaplasia; negative for dysplasia. ? B. Stomach, body, biopsies: Gastric mucosa with moderate active gastritis; positive for Helicobacter organisms consistent with Helicobacter pylori gastritis; negative for intestinal metaplasia/dysplasia. ?TODAY'S VISIT EGD and colon results reviewed. Wt loss of 30 lbs over the past 3 years. She is being followed at the Bariatric clinic for wt loss and unable to afford protein drinks due to limited income. 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 Mom of old age at age 94 yrs. Denies any problems since she had sleeve gastrectomy. Keeps messing up her diet and eating junk food Last colonoscopy was negative [place] [address] Nicole. Had removal of Lap band and conversion to sleeve gastrectomy in 01/13 Has lost 30 lbs since then. Regurgitation has resolved since her surgery Not taking Omeprazole any more. ?PAST VISIT: Vaccinated for COVID a few months ago Scheduled to have Gastric sleeve surgery on 01/22/21. Takes Omeprazole once a day. Notes intermittent regurgitation at night and sometimes during the day Does not eat red meat. Intentional wt loss of 10 lbs ? 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 ? She has a new insurance starting in Jul and she hopes it will cover her procedure for lap band removal. ? Heartburn is controlled with omeprazole 1-2 times daily and she is requesting a refill. ? Pt was seen urgently by Dr Mehta was scheduled who advised removal of Lap Band and conversion to Sleeve gastrectomy. ? Patient insurance advised that she does not have Bariatric coverage. ? Patient is working with the financial counseling dept at [facility] for self pay coverage to have her Lap Band removed. ? Had a Lap Band placed [address] Hayes at [facility] [place] - Weight was 385 and now weighs 275. ? Has acid reflux and epigastric pain for the past year and worse since Aug, 2018. ? Feels hungry and unable to eat - starts throwing up. ? Does ok if she eats at her scheduled time - if time passes, she is unable to eat. ? Intermittent nausea and has to put a bowl by her bed. ? Starts burping when she ie hungry and notes intermittent gas and bloating. ? Able to go every day if she eats and no BM if she does not eat - Able to go if she takes milk. ? Notes some fullness after eating and has to make herself vomit to feel better. ? Has been seeing Dr Nayak last week and trying to see Dr Hayes ? Denies known FH of colon polyps or GI malignancy. ? Sister had ovarian CA and 10 yrs ago? [facility] Medical History Abnormal EKG Adjustment disorder, unspecified BMI 45.0-49.9, adult COVID-19 vaccine series completed Essential hypertension Gastric band slippage GERD with esophagitis Helicobacter pylori gastritis Insomnia Left leg pain Morbid obesity with BMI of 40.0-44.9, adult PPD positive Preoperative cardiovascular examination Preoperative examination Rheumatoid arthritis Shortness of breath Smoker Vitamin B1 deficiency Vitamin D deficiency Surgical History History of adjustable gastric banding History of (~1996) History of colonoscopy (~05/2019) History of esophagogastroduodenoscopy (EGD) History of removal of laparoscopic gastric banding device History of repair of hiatal hernia Hx of endoscopy (~07/2019) S/P laparoscopic sleeve gastrectomy Family History Father Family history of high blood pressure Mother No problems noted. Brother No problems noted. Sister No problems noted. Sister No problems noted. Sister No problems noted. Sister No problems noted. Son No problems noted. Social History Household Members: None Housing: Apartment Are you a primary professional healthcare representative to a significant other at home: No Do you presently have visiting nurse or other home services: No Alcohol intake: current Alcohol intake frequency: holidays/special occasions only Patient Tobacco Use Status: Current someday Tobacco user Tobacco use type: Cigarette Cigarette Packs Per Day: 0 Cigarettes Per Day: 5 Advance Directives Date on File: 01/23/21 service: No Current occupational status: employed Review of Systems Const All systems reviewed & are unremarkable except as noted in HPI and below Physical Exam Vital Signs: Last Vital Signs Pulse 73 02/11/23 08:38 BP 146/63 H 02/11/23 08:38 BMI result Body Mass Index 40.3 Const General: healthy appearing and no acute distress Nutritional Appearance: obese Orientation/consciousness: patient oriented x3 Limitations: no limitations HEENT Head: Yes normal to inspection Ears: hearing grossly normal bilaterally Eyes Sclerae: sclerae normal Pupils: Equal, round and reactive pupils present Neck Neck: Yes normal visual inspection Chest Chest palpation & inspection: normal inspection of the chest Resp Effort & Inspection: normal respiratory effort Auscultation: clear to auscultation bilaterally Cardio Palpation: normal PMI Rate: regular rate Rhythm: regular rhythm Heart sounds: S1 normal heart sound present, S2 normal heart sound present and no murmurs GI Palpation (GI): Soft to palpation, nontender and No hepatosplenomegaly present Auscultation: normal bowel sounds Rectal Exam - Female: deferred Skin General skin exam: no rashes or lesions noted Neuro General: patient oriented x3, gait normal and moves all extremities Cranial nerves: Yes Equal, round and reactive pupils present Psych Appearance: grossly normal Mental Status: mental status grossly normal Assessment & Plan Assessment & Plan (1) GERD with esophagitis: Comment: Continue omeprazole 20 mg twice daily Code(s): K21.00 - Gastro-esophageal reflux disease with esophagitis, without bleeding (2) S/P laparoscopic sleeve gastrectomy: Code(s): Z98.84 - Bariatric surgery status (3) History of colon polyps: Code(s): Z86.010 - Personal history of colonic polyps (4) Morbid obesity: Code(s): E66.01 - Morbid (severe) obesity due to excess calories Plan 62 YF with hypertension, obesity - status post Lap Band, PPD POSITIVE, INSOMNIA, HYPERTENSION, LEFT LEG SWELLING, TENDNITIS, HEARTBURN seen for epigastric discomort and worsening heartburn with regurgitation. Patient is status post lap band surgery at [facility] > 12 years ago. UGI showed lap band to be disconnected from the catheter with evidence of slippage with phi angle measuring 85. The esophagus appeared patulous with severe gastroesophageal reflux and a question of mucosal irregularity of the distal thoracic esophagus or esophagitis. Pt was seen urgently by Dr Mehta who advised removal of Lap Band and conversion to Sleeve gastrectomy. Patient insurance advised that she does not have Bariatric coverage. ? Patient switched to a new insurance on Jul 26, 2020 and she was able to have the surgery with resolution of her symptoms. 11/30/22 EGD (evaluation of upper abdominal pain) and colonoscopy (colon cancer screening) were performed in findings as noted above. Fu colon advised in 5 yrs FU appt in 6 months. Orders: Orders US abdomen complete Today E66.01 - Morbid (severe) obesity due to excess calories Coding Level of Care Code Est Pt Level 4 (13903) Diagnoses GERD with esophagitis K21.00 S/P laparoscopic sleeve gastrectomy Z98.84 History of colon polyps Z86.010 Morbid obesity E66.01 Time Spent (min) 23
[2023-02-11 08:38] VITALS: BP 146/63; PULSE 73; BMI 40.3
== END 2023-02-11 09:21 | disposition home or self-care (01) ==
PROVIDERS: PCP Internal Medicine; Visit Provider Internal Medicine Gastroenterology
DX: K21.00 Gastro-esophageal reflux disease with esophagitis, without bleeding (principal); Z86.010 Personal history of colon polyps; Z71.2 Person consulting for explanation of examination or test findings; Z90.3 Acquired absence of stomach [part of]; Z98.84 Bariatric surgery status
CPT/HCPCS: 99214

== ENCOUNTER → 2023-02-11 08:29 | Outpatient (BNVA) | payer OTHER, SELFPAY | PROVIDERS: PCP Internal Medicine; Visit Provider Internal Medicine Gastroenterology ==

== ENCOUNTER 2023-03-05 08:22 | Outpatient (REF) | payer OTHER, SELFPAY ==
[2023-03-05 11:21] LABS: MANUAL DIFF FLAG NO
[2023-03-05 11:46] LABS: Basophils Percent Auto 0.3 % (0-2); Eosinophils Absolute Auto 0.1 X10*3/uL (0.0-0.4); Eosinophils Percent Auto 0.8 % (0-4); Hematocrit 42.7 % (37.0-47.0); Hemoglobin 13.6 g/dl (12.0-16.0); Imm Gran Abs Auto 0.03 X10*3/uL (0.00-0.03); Imm Gran Pct Auto 0.5 % (0.0-0.4); Lymphocytes Absolute Auto 1.8 X10*3/uL (1.2-4.9); Lymphocytes Percent Auto 30.6 % (20-40); Mean Corpuscular HGB Conc 31.9 g/dl (31.0-35.0); Mean Corpuscular Hemoglobin 30.2 pg (27.0-33.0); Mean Corpuscular Volume 94.9 fL (80.0-98.0); Monocytes Absolute Auto 0.6 X10*3/uL (0.1-1.2); Monocytes Percent Auto 9.5 % (2-11); Neutrophils Absolute Auto 3.4 x10*3/uL (2.0-8.3); Neutrophils Percent Auto 58.3 % (45-73); Platelet Count 157 X10*3/uL (160-400); Red Cell Distribution Width 13.6 % (11.0-16.0); White Blood Count 5.9 X10*3/uL (4.8-10.8)
[2023-03-05 12:33] LABS: Alanine Aminotransferase 18 U/L (0-31); Albumin Level 3.8 g/dL (3.5-5.0); Alkaline Phosphatase 138 U/L (39-117); Anion Gap 11 (12-20); Aspartate Amino Transferase 21 U/L (5-31); Bilirubin Direct 0.3 mg/dL (0.0-0.5); Bilirubin Total 0.6 mg/dL (0.0-1.0); Blood Urea Nitrogen 9 mg/dL (9-16); Calcium 9.6 mg/dL (8.4-10.2); Carbon Dioxide 31 mmol/L (22-29); Chloride 105 mmol/L (96-108); Estimated Glomerular Filt Rate > 60; Glucose Random 81 mg/dL (60-115); Potassium 4.4 mmol/L (3.3-5.1); Sodium 143 mmol/L (135-145)
[2023-03-05 12:39] LABS: TSH reflex Free T4 3.05 uIU/mL (0.32-4.0)
[2023-03-05 12:43] LABS: Cholesterol 154 mg/dL; HDL Cholesterol 55 mg/dL; LDL Cholesterol Calculated 83 mg/dl; Triglycerides 81 mg/dL
[2023-03-05 14:32] LABS: Reflex LDLD? No
== END 2023-03-05 08:23 | disposition home or self-care (01) ==
LOC: HO.HHCL 08:22
PROVIDERS: Visit Provider Internal Medicine
DX: I10 Essential (primary) hypertension (principal)
CPT/HCPCS: 36415; 80048; 80061; 80076; 84443; 85025

== ENCOUNTER 2023-03-05 08:35 | Outpatient (REF) | payer OTHER, SELFPAY ==
--- NOTE | ~2023-03-05 | XR_ITS ---
EXAMINATION: XR CHEST CLINICAL INFORMATION: +PPD COMPARISON: Chest x-ray August 24, 2019 TECHNIQUE: 2 views of the chest were obtained. FINDINGS: Cardiac silhouette is normal in size. The lungs are adequately aerated. There is no lobar consolidation. No pleural effusion or pneumothorax. Mild degenerative changes of the spine. XR/XR chest 2V IMPRESSION: No acute pulmonary pathology.
== END 2023-03-05 08:36 | disposition home or self-care (01) ==
LOC: HO.HHCX 08:35
PROVIDERS: Visit Provider Internal Medicine
DX: I10 Essential (primary) hypertension (principal)
CPT/HCPCS: 71046

== ENCOUNTER 2023-03-09 08:29 | Outpatient (REF) | payer OTHER, SELFPAY ==
--- NOTE | ~2023-03-09 | US_ITS ---
EXAMINATION: US ABDOMEN COMPLETE CLINICAL INFORMATION: Morbid obesity to access catheter is. Rule out fatty liver/cirrhosis. COMPARISON: None available. TECHNIQUE: Real-time imaging of the abdominal viscera. FINDINGS: PANCREAS: Normal. ABDOMINAL AORTA: The proximal, mid, and distal segments are normal in caliber. INFERIOR VENA CAVA: Visualized portions are normal. LIVER: The liver is normal in size. The liver contour is normal. Increased parenchymal echogenicity. No focal hepatic lesion. There is no intrahepatic biliary duct dilatation seen. GALLBLADDER: Normal. The gallbladder is physiologically distended without evidence of stones, sludge, polyps, wall thickening or pericholecystic fluid. COMMON BILE DUCT: Normal in caliber measuring 0.22 cm in diameter. RIGHT KIDNEY: Nonobstructive 1.1 cm calculus in the lower pole. No hydronephrosis or focal parenchymal lesions. The kidney measures 9.8 cm in maximum dimension. LEFT KIDNEY: Normal. No hydronephrosis. No renal calculi or focal parenchymal lesions. The kidney measures 10.4 cm in maximum dimension. SPLEEN: Normal. The spleen measures 9.7 cm in maximum dimension. FREE FLUID: None. US/US abdomen complete IMPRESSION: 1. Increased hepatic parenchymal echogenicity is nonspecific and could be seen in the setting of hepatic steatosis or hepatocellular disease. 2. Nonobstructive 1.1 cm calculus in the lower pole of the right kidney.
== END 2023-03-09 08:30 | disposition home or self-care (01) ==
LOC: HO.US 08:29
PROVIDERS: PCP Internal Medicine; Visit Provider Internal Medicine Gastroenterology
DX: E66.01 Morbid (severe) obesity due to excess calories (principal)
CPT/HCPCS: 76700

== ENCOUNTER 2023-08-12 08:39 | Outpatient (AMB) | payer OTHER, SELFPAY ==
--- NOTE | 2023-08-12 08:43 | A.OFFVIS_ITS ---
Intake Vital Signs 08/12/23 08:45 Height 5 ft 8 in Weight 268 lb 15.423 oz BMI 40.9 BP 159/65 H Blood Pressure Location Lt brachial Position Sitting Pulse 72 Intake Visit Reasons: 6 month follow up Intake Note: Kevin presents in the office as a 6 month follow up. CC: She states that she is not having any GI concerns. Pond Sawyer Required: No Allergies pollen extracts Allergy (Verified 08/12/23 08:49) Runny Nose Bee Allergy (Severe, Uncoded 08/12/23 08:49) Abdominal Pain Medication List - Last Reconciled 08/12/23 by Jeimy Gibbons MD acetaminophen ER 1 tab PO Q8H PRN cholecalciferol (vitamin D3) 125 mcg PO DAILY lisinopril 10 mg PO DAILY omeprazole 20 mg PO DAILY turmeric 400 mg PO .qod zinc sulfate 50 mg PO DAILY HPI 6 month follow up HPI Details FU GI CLINIC VISIT FOR THIS 63-YEAR-OLD FEMALE FOR FOLLOW-UP EVALUATION EPIGASTRIC PAIN AND COLON CANCER SCREENING. ? CHRONIC ILLNESSES: hypertension, obesity - status post Lap Band, PPD POSITIVE, INSOMNIA, HYPERTENSION, LEFT LEG SWELLING, TENDNITIS, HEARTBURN ? ? ? LABS IN [facility]: 08/24/19 Normal CBC and Chem panel ?IMAGING STUDIES: 08/22/19 UGI showed: ? Postsurgical change following gastric lap band. The lap band appears ? disconnected from the catheter. There is evidence of slippage with phi ? angle measuring 85. There is severe gastroesophageal reflux. The ? esophagus appears patulous and there is question of mucosal ? irregularity of the distal thoracic esophagus or esophagitis. There is ? marked narrowing of the stomach from the gastric lap band. ENDOSCOPIC STUDIES: 11/30/22 EGD AND COLON WAS PERFORMED: Endoscopy Findings: ESOPHAGUS: Benign appearing nodule on gastric side of GE junction STOMACH: Mild gastritis otherwise normal appearing gastrc pouch DUODENUM: Normal Colonoscopy Findings: Five small polyps removed (two were adenomatous) Moderate diverticulosis seen in the left colon Plan: Repeat Colonoscopy interval based on path results - in 3-5 years if polyps are adenomatous and 10 years if polyps are hyperplastic. BIOPSIES SHOWED: A.? Small bowel, biopsy:? Small intestinal mucosa within normal limits; negative for celiac disease. B.? Stomach, antrum, biopsy:? Antral-type mucosa with moderate chronic inactive inflammation; no Helicobacter organisms seen. C.? GE junction, nodule, biopsy: - Cardiofundic-type mucosa with moderate chronic inactive inflammation; no intestinal metaplasia seen. - Active esophagitis (maximum eosinophil count 2 per high powered field). D.? Cecum, polypectomy:? Colonic mucosa with prominent lymphoid aggregate; no dysplasia seen. E.? Colon, ascending, polypectomies:? Tubular adenomata (2); negative for high- grade dysplasia or carcinoma. F. ? Colon, sigmoid, polypectomy:? Hyperplastic mucosal polyp. G.? Rectum, polypectomy:? Hyperplastic mucosal polyp. 08/08/19 EGD SHOWED: ? ESOPHAGUS: Erosive esophagitis ? STOMACH: Gastritis ? DUODENUM: Normal ? Plan: ? Await pathology results ? Continue present medications (Omeprazole at 20 mg PO once daily) ? Schedule an UGI to assess Lap Band. ? Patient has an appointment on 08/24/19 in the GI Clinic with Jeimy Gibbons M.D ? Above findings were reviewed with the patient and handout on GERD was provided in the discharge area. ? BIOPSIES SHOWED: ? A. Stomach, biopsies: Gastric mucosa with moderate active gastritis; positive for Helicobacter organisms consistent with helicobacter pylori gastritis; positive for intestinal metaplasia; negative for dysplasia. ? B. Stomach, body, biopsies: Gastric mucosa with moderate active gastritis; positive for Helicobacter organisms consistent with Helicobacter pylori gastritis; negative for intestinal metaplasia/dysplasia. ?TODAY'S VISIT Has a 4 month GD, gris Rosenberg. Trying to loose weight. PAST VISITS: EGD and colon results reviewed. Wt loss of 30 lbs over the past 3 years. She is being followed at the Bariatric clinic for wt loss and unable to afford protein drinks due to limited income. 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 Mom of old age at age 94 yrs. Denies any problems since she had sleeve gastrectomy. Keeps messing up her diet and eating junk food Last colonoscopy was negative [place] [address] Nicole. Had removal of Lap band and conversion to sleeve gastrectomy in 01/13 Has lost 30 lbs since then. Regurgitation has resolved since her surgery Not taking Omeprazole any more. ?PAST VISIT: Vaccinated for COVID a few months ago Scheduled to have Gastric sleeve surgery on 01/22/21. Takes Omeprazole once a day. Notes intermittent regurgitation at night and sometimes during the day Does not eat red meat. Intentional wt loss of 10 lbs ? 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 ? She has a new insurance starting in Jul and she hopes it will cover her procedure for lap band removal. ? Heartburn is controlled with omeprazole 1-2 times daily and she is requesting a refill. ? Pt was seen urgently by Dr Mehta was scheduled who advised removal of Lap Band and conversion to Sleeve gastrectomy. ? Patient insurance advised that she does not have Bariatric coverage. ? Patient is working with the financial counseling dept at [facility] for self pay coverage to have her Lap Band removed. ? Had a Lap Band placed [address] Hayes at [facility] - Weight was 385 and now weighs 275. ? Has acid reflux and epigastric pain for the past year and worse since Aug, 2018. ? Feels hungry and unable to eat - starts throwing up. ? Does ok if she eats at her scheduled time - if time passes, she is unable to eat. ? Intermittent nausea and has to put a bowl by her bed. ? Starts burping when she ie hungry and notes intermittent gas and bloating. ? Able to go every day if she eats and no BM if she does not eat - Able to go if she takes milk. ? Notes some fullness after eating and has to make herself vomit to feel better. ? Has been seeing Dr Nayak last week and trying to see Dr Hayes ? Denies known FH of colon polyps or GI malignancy. ? Sister had ovarian CA and 10 yrs ago [facility] Medical History Abnormal EKG Adjustment disorder, unspecified BMI 45.0-49.9, adult COVID-19 vaccine series completed Essential hypertension Gastric band slippage GERD with esophagitis Helicobacter pylori gastritis Insomnia Left leg pain Morbid obesity with BMI of 40.0-44.9, adult PPD positive Preoperative cardiovascular examination Preoperative examination Rheumatoid arthritis Shortness of breath Smoker Vitamin B1 deficiency Vitamin D deficiency Surgical History History of adjustable gastric banding History of (~1996) History of colonoscopy (~05/2019) History of esophagogastroduodenoscopy (EGD) History of removal of laparoscopic gastric banding device History of repair of hiatal hernia Hx of endoscopy (~07/2019) S/P laparoscopic sleeve gastrectomy Family History Father Family history of high blood pressure Mother No problems noted. Brother No problems noted. Sister No problems noted. Sister No problems noted. Sister No problems noted. Sister No problems noted. Son No problems noted. Social History Household Members: None Housing: Apartment Are you a primary animal caretaker to a significant other at home: No Do you presently have visiting nurse or other home services: No Alcohol intake: current Alcohol intake frequency: holidays/special occasions only Patient Tobacco Use Status: Current someday Tobacco user Tobacco use type: Cigarette Cigarette Packs Per Day: 0 Cigarettes Per Day: 5 Advance Directives Date on File: 01/23/21 service: No Current occupational status: employed Review of Systems Const All systems reviewed & are unremarkable except as noted in HPI and below Physical Exam Vital Signs: Last Vital Signs Pulse 72 08/12/23 08:45 BP 159/65 H 08/12/23 08:45 BMI result Body Mass Index 40.9 Const General: healthy appearing and no acute distress Nutritional Appearance: obese Orientation/consciousness: patient oriented x3 Limitations: no limitations HEENT Head: Yes normal to inspection Ears: hearing grossly normal bilaterally Eyes Sclerae: sclerae normal Pupils: Equal, round and reactive pupils present Neck Neck: Yes normal visual inspection Chest Chest palpation & inspection: normal inspection of the chest Resp Effort & Inspection: normal respiratory effort Auscultation: clear to auscultation bilaterally Cardio Palpation: normal PMI Rate: regular rate Rhythm: regular rhythm Heart sounds: S1 normal heart sound present, S2 normal heart sound present and no murmurs GI Palpation (GI): Soft to palpation, nontender and No hepatosplenomegaly present Auscultation: normal bowel sounds Rectal Exam - Female: deferred Skin General skin exam: no rashes or lesions noted Neuro General: patient oriented x3, gait normal and moves all extremities Cranial nerves: Yes Equal, round and reactive pupils present Psych Appearance: grossly normal Mental Status: mental status grossly normal Assessment & Plan Assessment & Plan (1) History of colon polyps: Code(s): Z86.010 - Personal history of colonic polyps (2) GERD with esophagitis: Comment: Continue omeprazole 20 mg twice daily Code(s): K21.00 - Gastro-esophageal reflux disease with esophagitis, without bleeding (3) S/P laparoscopic sleeve gastrectomy: Code(s): Z98.84 - Bariatric surgery status (4) History of repair of hiatal hernia: Code(s): Z98.890 - Other specified postprocedural states; Z87.19 - Personal history of other diseases of the digestive system Plan 63 YF with hypertension, obesity - status post Lap Band, PPD POSITIVE, INSOMNIA, HYPERTENSION, LEFT LEG SWELLING, TENDNITIS, HEARTBURN seen for epigastric discomort and worsening heartburn with regurgitation. Patient is status post lap band surgery at [facility] > 12 years ago. UGI showed lap band to be disconnected from the catheter with evidence of slippage with phi angle measuring 85. The esophagus appeared patulous with severe gastroesophageal reflux and a question of mucosal irregularity of the distal thoracic esophagus or esophagitis. Pt was seen urgently by Dr Mehta who advised removal of Lap Band and conversion to Sleeve gastrectomy. Patient insurance advised that she does not have Bariatric coverage. ? Patient switched to a new insurance on Jul 26, 2020 and she was able to have the surgery with resolution of her symptoms. 11/30/22 EGD (evaluation of upper abdominal pain) and colonoscopy (colon cancer screening) were performed in findings as noted above. Fu colon advised in 5 yrs 08/12/23 Pt advised to continue working on loosing wt FU appt in 12 months. Coding Level of Care Code Est Pt Level 3 (45569) Diagnoses History of colon polyps Z86.010 GERD with esophagitis K21.00 S/P laparoscopic sleeve gastrectomy Z98.84 History of repair of hiatal hernia Z98.890; Z87.19 Time Spent (min) 17
[2023-08-12 08:45] VITALS: BP 159/65; PULSE 72; BMI 40.9
== END 2023-08-12 09:16 | disposition home or self-care (01) ==
PROVIDERS: PCP Internal Medicine; Visit Provider Internal Medicine Gastroenterology
DX: Z86.010 Personal history of colon polyps (principal); K21.00 Gastro-esophageal reflux disease with esophagitis, without bleeding; Z98.84 Bariatric surgery status; Z98.890 Other specified postprocedural states; Z87.19 Personal history of other diseases of the digestive system
CPT/HCPCS: 99213

== ENCOUNTER → 2023-08-12 08:39 | Outpatient (BNVA) | payer OTHER, SELFPAY | PROVIDERS: PCP Internal Medicine; Visit Provider Internal Medicine Gastroenterology ==

== ENCOUNTER 2023-08-19 11:01 | Outpatient (AMB) | payer OTHER, SELFPAY ==
--- NOTE | 2023-08-19 11:14 | MHC.OFFVIS ---
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 She states that she was expecting to see Dr. James who she knows well who has performed several procedures and evaluations on her. She came earlier to the [facility] in the morning was sent up to the [facility] office, and then sent back down here to our office here on the 3rd floor. The patient states she had a week of bleeding that she called her period. In July that started light became heavy and then was light. It reminded her of periods but she has not had a period in [address] James is notes. At the last postop visit in the summer she was instructed to return to him for any abnormal bleeding for further evaluation. I apologized for the missed direction of the appointments and we will endeavor to get her an appointment with Dr. James to proceed with her evaluation as she expected. She has no pain. she has no other tarper concerns that I could the addressed today she has not due for Pap smear.. [facility] Medical History Left leg pain Gastric band slippage COVID-19 vaccine series completed Smoker Shortness of breath Preoperative examination Essential hypertension Preoperative cardiovascular examination Adjustment disorder, unspecified Vitamin B1 deficiency Abnormal EKG Vitamin D deficiency BMI 45.0-49.9, adult Helicobacter pylori gastritis Rheumatoid arthritis GERD with esophagitis Insomnia PPD positive Morbid obesity with BMI of 40.0-44.9, adult Surgical History History of repair of hiatal hernia S/P laparoscopic sleeve gastrectomy History of removal of laparoscopic gastric banding device History of esophagogastroduodenoscopy (EGD) History of adjustable gastric banding History of (~1996) Hx of endoscopy (~07/2019) History of colonoscopy (~05/2019) Family History (Reviewed 08/19/23 @ 11:17 by Teena Riggins [facility]) Father Family history of high blood pressure Mother No problems noted. Brother No problems noted. Sister No problems noted. Sister No problems noted. Sister No problems noted. Sister No problems noted. Son No problems noted. Social History (Reviewed 08/19/23 @ 11:17 by Teena Riggins [facility]) Household Members: None Housing: Apartment Are you a primary healthcare or medical to a significant other at home: No Do you presently have visiting nurse or other home services: No Alcohol intake: current Alcohol intake frequency: holidays/special occasions only Patient Tobacco Use Status: Current someday Tobacco user Tobacco use type: Cigarette Cigarette Packs Per Day: 0 Cigarettes Per Day: 5 Advance Directives Date on File: 01/23/21 service: No Current occupational status: employed Female Reproductive History Menstrual Age of Menarche: 14 Duration of menses: 6-7 days control method: none Total pregnancies: 3 Full term: 1 Date of last pap smear: 02/04/23 (negative) History of abnormal pap smear: No (unknown) Physical Exam Vital Signs: Last Vital Signs BP 138/76 08/19/23 11:15 BMI result Body Mass Index 41.0 Results Reviewed Results Reviewed: Name: Kevin Kelley Age/Sex: 62/F Attending: Krishna James MD : 1960 Submitted by: Krishna James MD Copies to: Robert Torres MD MR #: [id number] Status: [facility] Collected: 01/22/23 Location: [facility] Received: 01/22/23 Diagnosis A. Endometrium, curettage: Strips of benign inactive be endometrium and fragment of benign polyp; no atypia or carcinoma. B. Endometrial polyp, resection: Benign endometrial polyp/s with focal surface metaplastic changes and cysts, and fragments of benign smooth muscle with focal hyaline degeneration, suggesting submucosal leiomyomata; no atypia or carcinoma. Clinical History Pre-Op Dx: Abnormal findings on diagnostic imaging of endometrium Post-Op Dx: Endometrial polyp Microscopic Description Microscopic sections reviewed. Material Received A: [facility] B: Endometrial polyp Gross Description A. Received in formalin it rolled Telfa pad is a 1.0 cc aggregate of butler-red spongy soft tissue, filtered and entirely submitted in cassette A1. B. Received in formalin within a white gauze the bag is a 2.0 cc aggregate of butler-white soft tissue fragments, filtered and totally submitted in cassette B1. (DTL) This case was reviewed intradepartmentally. Copies To Robert Torres MD [address] [place] [id number] Krishna James MD [address] [place] [address] [address] Patient: Kevin Kelley Age/Sex: 62/F MR#: [id number] Page 1 of 2 Surgical Pathology [id number] NOTE: Some or all of the immunohistochemical tests reported herein may have been developed and their performance characteristics determined by [facility]. They have not been cleared or approved by the U.S. Food and Drug Administration (FDA). However, the FDA has determined that such clearance or approval is not necessary. This laboratory is certified under the Clinical Laboratory Improvement Amendments of 1988 (CLIA) as qualified to perform high complexity clinical laboratory testing. Electronically Signed By: Kelsi Chaparro 01/25/231631 Patient: Kevin Kelley Age/Sex: 62/F MR#: [id number] Name: Kevin Kelley Age/Sex: 61/F Attending: Krishna James MD : 1960 Submitted by: Krishna James MD Copies to: MR #: [id number] Status: DEP REF Collected: 04/29/22 Location: [facility] Received: 05/01/22 Interpretation Satisfactory for evaluation. No endocervical cells seen. Negative for intraepithelial lesion or malignancy. HPV mRNA E6/E7: NOT DETECTED This assay detects E6/E7 viral messenger RNA (mRNA) from 14 high-risk HPV types (16, 18, 31, 33, 35, 39, 45, 51, 52, 56, 58, 59, 66, 68) HPV testing performed by [facility], [place], [place]. See reference laboratory pion of the EMR for entire report. Clinical Information LMP: Postmenopausal Previous PAP test: Unknown date/findings Other history: Leiomyoma of uterus Material Received ThinPrep-Cervical Electronically Signed By: ETELVINA Chicas (ASCP) 05/11/22 4626 The Pap Test is a screening procedure with the inherent possibility of both false negative and false positive results. Results should be interpreted in the context of historic and current clinical findings. Reliability of the Pap Test is enhanced by performing the test on a regular repetitive basis. Patient: Kevin Kelley Age/Sex: 61/F MR#: [id number] Page 1 of 1 Assessment & Plan Assessment & Plan (1) Abnormal uterine bleeding (AUB): Code(s): N93.9 - Abnormal uterine and vaginal bleeding, unspecified Plan This patient is to day at the [address] [facility] office. She states that she was expecting to see Dr. James who she knows well who has performed several procedures and evaluations on her. She came earlier to the [facility] in the morning was sent up to the [facility] office, and then sent back down here to our office here on the 3rd floor. The patient states she had a week of bleeding that she called her period. In July that started light became heavy and then was light. It reminded her of periods but she has not had a period in [address] Jamse is notes. At the last postop visit in the summer she was instructed to return to him for any abnormal bleeding for further evaluation. I apologized for the missed direction of the appointments and we will endeavor to get her an appointment with Dr. James to proceed with her evaluation as she expected. She has no pain. she has no other tarper concerns that I could the addressed today she has not due for Pap smear.. Coding Level of Care Code Est Pt Level 2 (80553) Diagnoses Abnormal uterine bleeding (AUB) N93.9
[2023-08-19 11:15] VITALS: BP 138/76; BMI 41.0
== END 2023-08-19 11:53 | disposition home or self-care (01) ==
LOC: HO.HWSM 11:01
PROVIDERS: PCP Internal Medicine; Visit Provider Advanced Practice Midwife
DX: N93.9 Abnormal uterine and vaginal bleeding, unspecified (principal)
CPT/HCPCS: 99212

== ENCOUNTER → 2023-08-19 11:01 | Outpatient (BNVA) | payer OTHER, SELFPAY | PROVIDERS: PCP Internal Medicine; Visit Provider Advanced Practice Midwife ==

== ENCOUNTER 2023-09-23 11:29 | Outpatient (AMB) | payer OTHER, SELFPAY ==
--- NOTE | 2023-09-23 11:35 | MHC.OFFVIS ---
Intake Vital Signs 09/23/23 11:36 Height 5 ft 8 in Weight 269 lb BMI 40.9 BP 144/78 H Intake Visit Reasons: AUB Fence Maker Required: No Information Interpreted: non-clinical & clinical Construction Project Coordinator: Construction Project Coordinator Present (Marlee) Allergies pollen extracts Allergy (Verified 09/23/23 11:37) Runny Nose Bee Allergy (Severe, Uncoded 09/23/23 11:37) Abdominal Pain Is last menstrual period known: No Post menopausal: Yes Patient : No HPI HPI Comments History of Present Illness Details Presenting recurrence of postmenopausal bleeding that occurred few weeks ago for 1 week. The patient had an episode of postmenopausal bleeding few months ago underwent hysteroscopy D&C polypectomy with benign pathology. In addition the patient had a pelvic ultrasound in 12/15 showing stable myomas . last co testing was in 2021 and was negative [facility] Medical History Left leg pain Gastric band slippage COVID-19 vaccine series completed Smoker Shortness of breath Preoperative examination Essential hypertension Preoperative cardiovascular examination Adjustment disorder, unspecified Vitamin B1 deficiency Abnormal EKG Vitamin D deficiency BMI 45.0-49.9, adult Helicobacter pylori gastritis Rheumatoid arthritis GERD with esophagitis Insomnia PPD positive Morbid obesity with BMI of 40.0-44.9, adult Surgical History History of repair of hiatal hernia S/P laparoscopic sleeve gastrectomy History of removal of laparoscopic gastric banding device History of esophagogastroduodenoscopy (EGD) History of adjustable gastric banding History of (~1996) Hx of endoscopy (~07/2019) History of colonoscopy (~05/2019) Family History Father Family history of high blood pressure Mother No problems noted. Brother No problems noted. Sister Ovarian cancer Sister No problems noted. Sister No problems noted. Sister No problems noted. Son No problems noted. Social History Household Members: None Housing: Apartment Are you a primary healthcare architect to a significant other at home: No Do you presently have visiting nurse or other home services: No Alcohol intake: current Alcohol intake frequency: holidays/special occasions only Patient Tobacco Use Status: Current someday Tobacco user Tobacco use type: Cigarette Cigarette Packs Per Day: 0 Cigarettes Per Day: 5 Advance Directives Date on File: 01/23/21 Patient : No service: No Current occupational status: employed Female Reproductive History Menstrual Age of Menarche: 14 control method: none Total pregnancies: 4 Full term: 1 Ab induced: 1 Ab spontaneous: 2 Date of last pap smear: 05/01/22 (negative) Review of Systems Const All systems reviewed & are unremarkable except as noted in HPI and below Physical Exam Vital Signs: Last Vital Signs BP 144/78 H 09/23/23 11:36 BMI result Body Mass Index 40.9 General: Yes no CVA tenderness External Female Exam: normal external appearance and normal appearance of the urethra Speculum Exam - Vagina: normal appearance of the vagina, normal palpation, no lesions and no masses Speculum Exam - Cervix: normal appearance of the cervix, normal palpation, no lesions, no masses and nontender Bimanual exam- vagina & uterus: normal bimanual exam, normal palpation, uterine size normal, normal palpation, uterine shape normal, No Cervical tenderness present and non-tender Bimanual Exam- Adnexa, other: normal adnexae Back/Spine/Pelvis Back: no CVA tenderness Office Procedures Endometrial Biopsy Details: The patient was counseled regarding the indication and benefits of endometrial sampling to rule out endometrial pathology including not limited to endometrial hyperplasia or endometrial cancer and others; The alternatives (Either do nothing vs. hysteroscopy D&C) & the risks were discussed with the patient including but not limited: pain, uterine perforation, bleeding, infection, possible injury to bladder, bowel, ureter, possible need for blood transfusion with all its possible risks. The patient verbalized understanding all questions answered and signed consent. The patient was placed into the dorsal lithotomy position; a speculum was inserted in the vagina. Using aseptic technique for the procedure, the cervix was cleansed with Betadine. The anterior lip of the cervix was grasped with a single tooth tenaculum. The uterus was sounded to 7 cm with a 4 mm Pipelle was used. Tissues samples were obtained and placed in formalin, in a patient labeled container and sent to the pathology department. At the end of the procedure, there was minimal bleeding noted The patient tolerated the procedure well and was discharged in good condition with the following instructions: Nothing in the vagina until the bleeding stops. No sex until the bleeding stops, to call if any of the following occurs: fever (>100.4), flu-like symptoms, abdominal pain, heavy bleeding, four smelling vaginal discharge. The patient was instructed to schedule a Follow up appointment in 2 weeks to discuss pathology results of the biopsy and treatment options. This note was generated with a voice recognition program. Some errors may have been overlooked during the review of this note. Sometimes these errors may affect the content or meaning of a given sentence. [id number] Biopsy Assessment & Plan Assessment & Plan (1) Postmenopausal bleeding: Code(s): N95.0 - Postmenopausal bleeding Plan: Discussed with the patient the differential diagnosis of post menopausal bleeding with normal pelvic exam including but not limited to, endometrial hyperplasia, cancer, polyps and other causes; Recommended to the patient that the next step is an endometrial sampling via hysteroscopy D&C possible polypectomy versus endometrial biopsy to r/o endometrial pathology including hyperplasia or cancer. All the pros and cons risks and benefits of each approach were discussed with the patient, endometrial biopsy being less invasive, office procedure with less sensitivity and inability diagnose a polyp and removal versus hysteroscopy done under anesthesia more invasive more sensitive to endometrial cancer and possibility of diagnosing and endometrial polyp with the possibility of polypectomy. All questions were answered pt verbalized understanding and decided to proceed with endometrial biopsy, EMB done, see procedure note (2) Uterine myoma: Code(s): D25.9 - Leiomyoma of uterus, unspecified Plan: Will order pelvic ultrasound to follow up on the previous myoma sizes. Instructions given the patient to schedule an ultrasound follow-up appointment in 2 weeks. Orders: Orders US pelvic and transvaginal Today D25.9 - Leiomyoma of uterus, unspecified, N95.0 - Postmenopausal bleeding AMB Endometrial Biopsy Today N95.0 - Postmenopausal bleeding Coding Level of Care Code Est Pt Level 3 (93326) Procedure Only Diagnoses Postmenopausal bleeding N95.0 Uterine myoma D25.9 CPT Codes Endometrial Biopsy - CPT: 94650-[id number] Biopsy ([id number])
[2023-09-23 11:36] VITALS: BP 144/78; BMI 40.9
== END 2023-09-23 12:19 | disposition home or self-care (01) ==
PROVIDERS: PCP Internal Medicine; Visit Provider Obstetrics & Gynecology
DX: N95.0 Postmenopausal bleeding (principal); D25.9 Leiomyoma of uterus, unspecified
CPT/HCPCS: 58100; 99213

== ENCOUNTER 2023-09-23 11:29 | Outpatient (REF) | payer OTHER, SELFPAY | END 2023-09-23 11:30 | disposition home or self-care (01) | LOC: HO.LNP 11:29 | PROVIDERS: PCP Internal Medicine; Visit Provider Obstetrics & Gynecology | DX: N95.0 Postmenopausal bleeding (principal); D25.9 Leiomyoma of uterus, unspecified | CPT/HCPCS: 58100; 88305 ==

== ENCOUNTER 2023-09-25 08:30 | Outpatient (REF) | payer OTHER, SELFPAY ==
[2023-09-25 09:02] LABS: MANUAL DIFF FLAG NO
[2023-09-25 09:04] LABS: Basophils Percent Auto 0.6 % (0-2); Eosinophils Absolute Auto 0.1 X10*3/uL (0.0-0.4); Eosinophils Percent Auto 2.7 % (0-4); Hematocrit 43.4 % (37.0-47.0); Hemoglobin 14.3 g/dl (12.0-16.0); Imm Gran Abs Auto 0.03 X10*3/uL (0.00-0.03); Imm Gran Pct Auto 0.6 % (0.0-0.4); Lymphocytes Absolute Auto 2.7 X10*3/uL (1.2-4.9); Mean Corpuscular HGB Conc 32.9 g/dl (31.0-35.0); Mean Corpuscular Volume 94.1 fL (80.0-98.0); Mean Platelet Volume 10.6 fL (9.4-12.3); Monocytes Absolute Auto 0.5 X10*3/uL (0.1-1.2); Neutrophils Absolute Auto 1.8 x10*3/uL (2.0-8.3); Neutrophils Percent Auto 35.1 % (45-73); Platelet Count 165 X10*3/uL (160-400); Red Blood Count 4.61 X10*6/uL (4.20-5.50); Red Cell Distribution Width 13.7 % (11.0-16.0); White Blood Count 5.1 X10*3/uL (4.8-10.8)
[2023-09-25 09:33] LABS: Alanine Aminotransferase 53 U/L (0-31); Albumin Level 3.9 g/dL (3.5-5.0); Alkaline Phosphatase 114 U/L (39-117); Anion Gap 11 (12-20); Aspartate Amino Transferase 48 U/L (5-31); Bilirubin Direct 0.2 mg/dL (0.0-0.5); Bilirubin Total 0.4 mg/dL (0.0-1.0); Blood Urea Nitrogen 12 mg/dL (9-16); Calcium 9.4 mg/dL (8.4-10.2); Carbon Dioxide 32 mmol/L (22-29); Chloride 105 mmol/L (96-108); Cholesterol 165 mg/dL (<200); Estimated Glomerular Filt Rate > 60; Glucose Random 77 mg/dL (60-115); HDL Cholesterol 57 mg/dL (>40); LDL Cholesterol Calculated 92 mg/dL (<100); Potassium 4.6 mmol/L (3.3-5.1); Sodium 143 mmol/L (135-145); Total Protein 6.7 g/dL (6.5-8.0); Triglycerides 82 mg/dL (<150)
[2023-09-25 10:55] LABS: Reflex LDLD? No
== END 2023-09-25 08:31 | disposition home or self-care (01) ==
LOC: HO.LAB 08:30
PROVIDERS: PCP Internal Medicine; Visit Provider Internal Medicine
DX: I10 Essential (primary) hypertension (principal)
CPT/HCPCS: 36415; 80048; 80061; 80076; 85025

== ENCOUNTER 2023-09-29 14:11 | Outpatient (REF) | payer OTHER, SELFPAY ==
--- NOTE | ~2023-09-29 | US_ITS ---
EXAMINATION: US PELVIS CLINICAL INFORMATION: Postmenopausal bleeding. COMPARISON: Pelvic ultrasound 12/10/2022. TECHNIQUE: Ultrasound of the pelvis is performed using both transabdominal and transvaginal transducers along with Doppler. Transvaginal imaging is performed due to inadequate visualization transabdominally. FINDINGS: Enlarged lobulated uterus measuring 7.9 x 4.5 x 6.2 cm with an anteverted and anteflexed positioning. Nabothian cysts are noted in the cervix. Redemonstration of multiple uterine lesions, statistically favoring to represent fibroids as follow: 1. A 2.4 x 1.6 x 2.1 cm posterior inferior lesion previously 2.4 x 1.8 x 2.6 cm. 2. A 2 x 2.2 x 2 cm mid posterior lesion previously 2.4 x 2 x 1.7 cm. 3. A 2.4 x 2.5 x 2.7 cm anterior lesion previously 2.5 x 2.1 x 2.5 cm. 4. A 2.2 x 1.7 x 2.2 cm left upper lesion previously 2 x 1.7 x 1.7 cm. 5. A 2.6 x 1.6 x 2 cm left fundal lesion, previously not measured. The endometrium is not well seen due to distortion from the uterine lesions. The well seen portions measured up to 0.5 cm with a small amount of fluid. The ovaries are not visualized. US/US pelvic and transvaginal IMPRESSION: 1. Redemonstration of multiple uterine lesions, statistically favoring to represent fibroids. 2. The endometrium is not well seen due to distortion from the uterine lesions. A small better visualize portion demonstrates borderline thickening, recommend BOOT MAKER consult and if indicated tissue sampling. 3. The ovaries are not visualized.
== END 2023-09-29 14:12 | disposition home or self-care (01) ==
LOC: HO.US 14:11
PROVIDERS: Absent Provider Obstetrics & Gynecology; PCP Internal Medicine; Visit Provider Internal Medicine
DX: N95.0 Postmenopausal bleeding (principal); D25.9 Leiomyoma of uterus, unspecified
CPT/HCPCS: 76830; 76856

== ENCOUNTER 2023-10-11 07:26 | Outpatient (REF) | payer OTHER, SELFPAY | END 2023-10-11 07:27 | disposition home or self-care (01) | LOC: HO.MAMMO 07:26 | PROVIDERS: PCP Internal Medicine; Visit Provider Internal Medicine | DX: Z12.31 Encounter for screening mammogram for malignant neoplasm of breast (principal) | CPT/HCPCS: 77063; 77067 ==

== ENCOUNTER → 2023-10-11 07:45 | Outpatient (BNV) | payer OTHER, SELFPAY | PROVIDERS: PCP Internal Medicine; Visit Provider Radiology Diagnostic Radiology | DX: Z12.31 Encounter for screening mammogram for malignant neoplasm of breast (principal) | CPT/HCPCS: 77063; 77067 ==

== ENCOUNTER 2023-10-26 07:58 | Outpatient (AMB) | payer OTHER, SELFPAY ==
--- NOTE | 2023-10-26 08:07 | A.OFFVIS_ITS ---
Intake Vital Signs 10/26/23 08:09 Height 5 ft 8 in Weight 268 lb 15.423 oz BMI 40.9 BP 120/70 Intake Visit Reasons: Ultrasound follow up House Piping Inspector Required: No Information Interpreted: non-clinical & clinical Accompanied by: Self / Same As Patient Allergies pollen extracts Allergy (Verified 10/26/23 08:10) Runny Nose Bee Allergy (Severe, Uncoded 10/26/23 08:10) Abdominal Pain Post menopausal: Yes HPI HPI Comments History of Present Illness Details Presenting for follow-up EMB and pelvic ultrasound . The pathology report showed the following: Superficial strips of benign inactive endometrium, and benign endocervical glandular and squamous epithelium; no atypia or carcinoma Pelvic ultrasound showed showed the following: Enlarged lobulated uterus measuring 7.9 x 4.5 x 6.2 cm with an anteverted and anteflexed positioning. Nabothian cysts are noted in the cervix. Redemonstration of multiple uterine lesions, statistically favoring to represent fibroids as follow: 1. A 2.4 x 1.6 x 2.1 cm posterior infer ior lesion previously 2.4 x 1.8 x 2.6 cm. 2. A 2 x 2.2 x 2 cm mid posterior lesio n previously 2.4 x 2 x 1.7 cm. 3. A 2.4 x 2.5 x 2.7 cm anterior lesion previously 2.5 x 2.1 x 2.5 cm. 4. A 2.2 x 1.7 x 2.2 cm left upper lesi on previously 2 x 1.7 x 1.7 cm. 5. A 2.6 x 1.6 x 2 cm left fundal lesio n, previously not measured. The endometrium is not well seen due to distortion from the uterine lesions. The well seen portions measured up to 0.5 cm with a small amount of fluid. The ovaries are not visualized. [facility] Medical History Left leg pain Gastric band slippage COVID-19 vaccine series completed Smoker Shortness of breath Preoperative examination Essential hypertension Preoperative cardiovascular examination Adjustment disorder, unspecified Vitamin B1 deficiency Abnormal EKG Vitamin D deficiency BMI 45.0-49.9, adult Helicobacter pylori gastritis Rheumatoid arthritis GERD with esophagitis Insomnia PPD positive Morbid obesity with BMI of 40.0-44.9, adult Surgical History History of repair of hiatal hernia S/P laparoscopic sleeve gastrectomy History of removal of laparoscopic gastric banding device History of esophagogastroduodenoscopy (EGD) History of adjustable gastric banding History of (~1996) Hx of endoscopy (~07/2019) History of colonoscopy (~05/2019) Family History Father Family history of high blood pressure Mother No problems noted. Brother No problems noted. Sister Ovarian cancer Sister No problems noted. Sister No problems noted. Sister No problems noted. Son No problems noted. Social History Household Members: None Housing: Apartment Are you a primary career services representative to a significant other at home: No Do you presently have visiting nurse or other home services: No Alcohol intake: current Alcohol intake frequency: holidays/special occasions only Patient Tobacco Use Status: Current someday Tobacco user Tobacco use type: Cigarette Cigarette Packs Per Day: 0 Cigarettes Per Day: 5 Advance Directives Date on File: 01/23/21 service: No Current occupational status: employed Female Reproductive History Menstrual Age of Menarche: 14 Review of Systems Const All systems reviewed & are unremarkable except as noted in HPI and below Reports as per HPI and Reports no additional complaints GI Reports no additional complaints Reports no additional complaints Assessment & Plan Assessment & Plan (1) Postmenopausal bleeding: Code(s): N95.0 - Postmenopausal bleeding Plan: Discussed with the patient the results of the endometrial biopsy showing inactive endometrium. Discussed with the patient the sensitivity, specificity, positive and negative predictive value, of endometrial biopsy in detecting endometrial pathology including but not limited to endometrial hyperplasia, cancer and other pathology; instructed the patient to call in case vaginal bleeding bleeding recurs, the next step will be to proceed with a diagnostic hysteroscopy/D&C for further endometrial sampling evaluation to rule out endometrial pathology. All questions answered and the patient verbalized understanding and agreed with the plan. (2) Uterine myoma: Code(s): D25.9 - Leiomyoma of uterus, unspecified Plan: Discussed with the patient the findings on pelvic ultrasound & the risk of myosarcoma; discussed with the patient the options of treatment including expectant management versus hysterectomy; the pros and cons, risks benefits of each approach were discussed with the patient including the fact that in cases of myosarcoma, surgical treatment can lead to early diagnosis and positively affects the prognosis; after further discussion, the patient decided to proceed with expectant management. Will repeat pelvic ultrasound periodically. Instructions given to patient to call in case any of the following occurs: pressure symptoms, abnormal uterine bleeding, pelvic pain; and to schedule pelvic ultrasound and a follow-up appointment in a year. All questions answered, the patient verbalized understanding and agreed with the plan . Orders: Orders US pelvic and transvaginal 11 Months D25.9 - Leiomyoma of uterus, unspecified Coding Level of Care Code Est Pt Level 3 (04858) Diagnoses Postmenopausal bleeding N95.0 Uterine myoma D25.9
[2023-10-26 08:09] VITALS: BP 120/70; BMI 40.9
== END 2023-10-26 08:28 | disposition home or self-care (01) ==
PROVIDERS: PCP Internal Medicine; Visit Provider Obstetrics & Gynecology
DX: N95.0 Postmenopausal bleeding (principal); D25.9 Leiomyoma of uterus, unspecified
CPT/HCPCS: 99213

== ENCOUNTER → 2023-10-26 07:58 | Outpatient (BNVA) | payer OTHER, SELFPAY | PROVIDERS: PCP Internal Medicine; Visit Provider Obstetrics & Gynecology ==

== ENCOUNTER 2024-06-12 08:56 | Outpatient (REF) | payer OTHER, SELFPAY ==
[2024-06-12 12:34] LABS: Alanine Aminotransferase 32 U/L (0-31); Albumin Level 3.9 g/dL (3.5-5.0); Alkaline Phosphatase 135 U/L (39-117); Anion Gap 10 (12-20); Aspartate Amino Transferase 35 U/L (5-31); Bilirubin Total 0.7 mg/dL (0.0-1.0); Blood Urea Nitrogen 13 mg/dL (9-16); Calcium 9.3 mg/dL (8.4-10.2); Carbon Dioxide 31 mmol/L (22-29); Chloride 105 mmol/L (96-108); Cholesterol 182 mg/dL (<200); Estimated Glomerular Filt Rate > 60; Glucose Random 85 mg/dL (60-115); HDL Cholesterol 62 mg/dL (>40); LDL Cholesterol Calculated 102 mg/dL (<100); Potassium 3.9 mmol/L (3.3-5.1); Sodium 142 mmol/L (135-145); TSH reflex Free T4 2.39 uIU/mL (0.32-4.0); Total Protein 6.6 g/dL (6.5-8.0); Triglycerides 90 mg/dL (<150)
== END 2024-06-12 08:57 | disposition home or self-care (01) ==
LOC: HO.HHCL 08:56
PROVIDERS: Visit Provider Internal Medicine
DX: Z00.00 Encounter for general adult medical examination without abnormal findings (principal); I10 Essential (primary) hypertension
CPT/HCPCS: 36415; 80053; 80061; 84443